=== PATIENT | female | born 1985 | race Two or more races ===

== ENCOUNTER 2023-08-27 16:02 | Inpatient (IN) | payer MEDICAID ==
[~2023-08-27] VITALS: Ht 157.5 cm; Wt 98.3 kg
[2023-08-27 17:23] LABS: Urine Bacteria NONE SEEN /hpf (None Seen); Urine Blood TRACE /uL (Negative); Urine Clarity HAZY (Clear); Urine Color Colorless (Yellow); Urine Protein, UAD 3+ (Negative); Urine Specific Gravity 1.031 (1.001-1.035); Urine Urobilinogen Normal (Negative); Urine WBC 2 /hpf (0 - 5)
[2023-08-27] MEDS ORDERED: InsuLIN REG 1unit/0.01ml Soln (100units/ml) IV ONE (18:15)
[2023-08-27] MEDS ORDERED: SODIUM CHLORIDE 0.9% 2,000 ML IV ONE (18:15)
[2023-08-27] MEDS ORDERED: CEPHALEXIN 250 MG CAP PO ONE (18:15)
[2023-08-27 18:47] LABS: Eosinophils # (auto) 0.2 10 ^3/uL (0-0.8); Hemoglobin 11.3 g/dL (12.2-16.2); Lymphocytes # (auto) 2.1 10 ^3/uL (0.4-5.4)
[2023-08-27 18:49] LABS: Basophils # (auto) 0.1 10 ^3/uL (0-0.2); Basophils % (auto) 0.5 % (0.0-2.0); Eosinophils % (auto) 1.3 % (0.0-7.0); Hematocrit 35.8 % (36.0-46.0); Lymphocytes % (auto) 14.1 % (10.0-50.0); Mean Corpuscular Hemoglobin 26.8 pg (28.0-32.0); Mean Corpuscular Hgb Conc. 31.7 g/dL (32.0-36.0); Mean Corpuscular Volume 84.7 fL (80.0-100.0); Monocytes # (auto) 0.9 10 ^3/uL (0-1.3); Monocytes % (auto) 5.9 % (0.0-12.0); Neutrophils # (auto) 11.5 10 ^3/uL (1.6-8.6); Neutrophils % (auto) 78.2 % (37.0-80.0); Red Blood Cells 4.23 10^6/uL (4.0-5.20); Red Cell Distribution Width 13.1 % (11.8-14.3); White Blood Cell 14.7 10^3/uL (4.4-10.8)
[2023-08-27 19:07] LABS: Alanine Aminotransferase 13 U/L (7-40); Albumin 3.6 g/dL (3.2-4.8); Alkaline Phosphatase 171 U/L (46-116); Anion Gap 7 (5-15); Aspartate Aminotransferase 10 U/L (13-40); BUN/Creatinine Ratio 16.6 (10.0-20.0); Blood Urea Nitrogen 26 mg/dL (9-23); Calcium 8.6 mg/dL (8.7-10.4); Carbon Dioxide 26 mmol/L (20-30); Chloride 97 mmol/L (98-107); Potassium 4.3 mmol/L (3.5-5.1); Sodium 130 mmol/L (136-145)
[2023-08-27 19:08] LABS: Bilirubin, Total 0.3 mg/dL (0.2-1.0); Total Protein 6.7 g/dL (5.7-8.2)
[2023-08-27 19:15] LABS: Glucose 587 mg/dL (74-106)
[2023-08-27] MEDS ORDERED: hydrALAZINE HCL 20 MG/ML VL IV ONE (21:30)
[2023-08-27] MEDS ORDERED: VANCOMYCIN PER PHARMACY 0 MG IV SCH (21:30)
[2023-08-27] MEDS ORDERED: VANCOMYCIN 1GM/200ML 200 ML IV SCH (22:00)
[2023-08-27] MEDS ORDERED: INSULIN LISPRO (HUMAN) 100 UNITS/ML ML SC STA (22:22)
[2023-08-27] MEDS ORDERED: MAALOX PLUS or MAALOX 30 ML PO PRN (22:30)
[2023-08-27] MEDS ORDERED: HYDROcodone-ACET 5/325MG TAB PO PRN (22:30)
[2023-08-27] MEDS ORDERED: DOCUSATE SOD 100 MG CAP PO PRN (22:30)
[2023-08-27] MEDS ORDERED: ONDANSETRON HCL 4 MG/2 ML VIAL IV PRN (22:30)
[2023-08-27] MEDS ORDERED: DEXTROSE (50%) 50ML SYRG IV PRN (22:30)
[2023-08-27] MEDS ORDERED: MORPHINE SULFATE INJ 2 MG/ml SYRG IV PRN (22:30)
[2023-08-27] MEDS ORDERED: ACETAMINOPHEN 325 MG TAB PO PRN (22:30)
[2023-08-27] MEDS ORDERED: LORazepam 0.5 MG TAB PO PRN (22:30)
[2023-08-27] MEDS ORDERED: TEMAZEPAM 15 MG CAP PO PRN (22:30)
[2023-08-28] VITALS (8 sets, daily range): BP systolic 127–138; BP diastolic 73–80; PULSE 78–100; RESP 14–20; TEMP 97.5–97.9; O2SAT 97–99
[2023-08-28] MEDS: ACCU-CHEK COMFORT CURVE STRIP VI SCH ×6 (00:03→21:21)
[2023-08-28] MEDS: SODIUM CHLORIDE 0.9% 1,000 ML IV SCH ×6 (00:04→23:30)
[2023-08-28] MEDS: InsuLIN REG 1unit/0.01ml Soln (100units/ml) SC SCH ×6 (04:17→21:27)
[2023-08-28 05:42] LABS: Basophils # (auto) 0 10 ^3/uL (0-0.2); Basophils % (auto) 0.4 % (0.0-2.0); Eosinophils # (auto) 0.2 10 ^3/uL (0-0.8); Eosinophils % (auto) 2.4 % (0.0-7.0); Hematocrit 30.7 % (36.0-46.0); Lymphocytes # (auto) 2.7 10 ^3/uL (0.4-5.4); Lymphocytes % (auto) 27.1 % (10.0-50.0); Mean Corpuscular Hemoglobin 27.4 pg (28.0-32.0); Mean Corpuscular Hgb Conc. 32.7 g/dL (32.0-36.0); Mean Corpuscular Volume 83.7 fL (80.0-100.0); Monocytes # (auto) 0.6 10 ^3/uL (0-1.3); Monocytes % (auto) 6.6 % (0.0-12.0); Neutrophils # (auto) 6.2 10 ^3/uL (1.6-8.6); Neutrophils % (auto) 63.5 % (37.0-80.0); Nucleated Red Blood Cells % 0.1 %; Potassium 4.1 mmol/L (3.5-5.1); Red Blood Cells 3.66 10^6/uL (4.0-5.20); Red Cell Distribution Width 13.4 % (11.8-14.3); Sodium 139 mmol/L (136-145); White Blood Cell 9.8 10^3/uL (4.4-10.8)
[2023-08-28 05:43] LABS: Anion Gap 7 (5-15); Calcium 7.8 mg/dL (8.5-10.1); Carbon Dioxide 23 mmol/L (20-30)
[2023-08-28 05:48] LABS: BUN/Creatinine Ratio 18.2 (10.0-20.0); Blood Urea Nitrogen 20 mg/dL (9-23); Glucose 254 mg/dL (74-106)
[2023-08-28] MEDS: PIPERACILLIN-TAZO 4.5GM 100 ML IV SCH ×3 (05:51→21:23)
[2023-08-28 05:53] LABS: Chloride 109 mmol/L (98-107)
[2023-08-28] MEDS ORDERED: VANCOMYCIN 750mg/150ml 250 ML IV SCH (13:00)
[2023-08-28] MEDS ORDERED: VANCOMYCIN 750mg/150ml 150 ML IV SCH (15:57)
[2023-08-28] MEDS ORDERED: VANCOMYCIN 750mg/150ml 150 ML IV ONE (16:15)
[2023-08-29] MEDS: ACCU-CHEK COMFORT CURVE STRIP VI SCH ×5 (00:20→16:00)
[2023-08-29] MEDS: InsuLIN REG 1unit/0.01ml Soln (100units/ml) SC SCH ×5 (00:22→16:00)
[2023-08-29] MEDS ORDERED: VANCOMYCIN 750mg/150ml 150 ML IV SCH (04:00)
[2023-08-29] MEDS: SODIUM CHLORIDE 0.9% 1,000 ML IV SCH ×3 (04:58→14:30)
[2023-08-29 05:00] VITALS: BP 157/83; PULSE 84; RESP 20; TEMP 98.2; O2SAT 97
[2023-08-29] MEDS ORDERED: VANCOMYCIN 750mg/150ml 250 ML IV SCH (06:00)
[2023-08-29 06:28] LABS: Basophils % (auto) 0.6 % (0.0-2.0); Eosinophils # (auto) 0.2 10 ^3/uL (0-0.8); Hematocrit 28.4 % (36.0-46.0); Monocytes # (auto) 0.5 10 ^3/uL (0-1.3); Neutrophils # (auto) 5.5 10 ^3/uL (1.6-8.6)
[2023-08-29 06:31] LABS: Basophils # (auto) 0 10 ^3/uL (0-0.2); Eosinophils % (auto) 2.2 % (0.0-7.0); Hemoglobin 9.2 g/dL (12.2-16.2); Lymphocytes % (auto) 24.1 % (10.0-50.0); Mean Corpuscular Hemoglobin 26.9 pg (28.0-32.0); Mean Corpuscular Hgb Conc. 32.3 g/dL (32.0-36.0); Mean Corpuscular Volume 83.2 fL (80.0-100.0); Monocytes % (auto) 5.9 % (0.0-12.0); Neutrophils % (auto) 67.2 % (37.0-80.0); Nucleated Red Blood Cells % 0.1 %; Red Blood Cells 3.41 10^6/uL (4.0-5.20); Red Cell Distribution Width 13.4 % (11.8-14.3); White Blood Cell 8.2 10^3/uL (4.4-10.8)
[2023-08-29 06:35] LABS: Chloride 109 mmol/L (98-107); Potassium 3.9 mmol/L (3.5-5.1); Sodium 137 mmol/L (136-145)
[2023-08-29 06:37] LABS: Anion Gap 4 (5-15); Calcium 7.9 mg/dL (8.7-10.4); Carbon Dioxide 24 mmol/L (20-30)
[2023-08-29 06:42] LABS: BUN/Creatinine Ratio 12.1 (10.0-20.0); Blood Urea Nitrogen 11 mg/dL (9-23); Glucose 109 mg/dL (74-106)
[2023-08-29 07:30] VITALS: PULSE 82; RESP 16; O2SAT 96
[2023-08-29 08:00] VITALS: PULSE 86
[2023-08-29 09:00] VITALS: BP 151/80; PULSE 80; RESP 18; TEMP 98.4; O2SAT 94
[2023-08-29] MEDS ORDERED: CLIN300C70 PO (10:56)
[2023-08-29 13:00] VITALS: BP 154/74; PULSE 84; RESP 18; TEMP 98.5; O2SAT 98
[2023-08-29] MEDS ORDERED: PIPERACILLIN-TAZO 4.5GM 100 ML IV SCH (14:00)
[2023-08-29 15:29] VITALS: BP 116/57; PULSE 84; RESP 17; TEMP 98.1; O2SAT 93
== END 2023-08-29 16:10 | disposition home or self-care (01) | DRG 380 ==
LOC: ER 16:02 → TELE 22:22 → TELE-WESTW 08-28 09:00
PROVIDERS: ADMIT Internal Medicine; ATTEND Internal Medicine
DX: E11.69 Type 2 diabetes mellitus with other specified complication (principal); L97.529 Non-pressure chronic ulcer of other part of left foot with unspecified severity; N17.0 Acute kidney failure with tubular necrosis; E11.621 Type 2 diabetes mellitus with foot ulcer; L03.116 Cellulitis of left lower limb; I10 Essential (primary) hypertension; Z68.39 Body mass index [BMI] 39.0-39.9, adult; E66.01 Morbid (severe) obesity due to excess calories; E11.65 Type 2 diabetes mellitus with hyperglycemia; S90.922A Unspecified superficial injury of left foot, initial encounter; X58.XXXA Exposure to other specified factors, initial encounter; Y93.89 Activity, other specified; Y92.89 Other specified places as the place of occurrence of the external cause; Y99.8 Other external cause status
CPT/HCPCS: 36415; 73620; 73718; 80048; 80053; 81001; 82962; 83036; 83605; 84702; 85025; 87040; 87086; 99291; G0378; J1815; J2543

== ENCOUNTER 2023-11-26 10:27 | Inpatient (IN) | payer MEDICAID ==
[~2023-11-26] VITALS: Ht 167.6 cm; Wt 70.4 kg
[~2023-11-26 10:27] MED LIST: AUG875T PO; BACDST PO; BLOO1KIT60 XX; DAKI0.12 EX; DOCU-94 PO; GAUZ4PAD82 XX; GAUZMIS XX; HYDR-4902 PO; LACTCAP35 OR; METF-370 PO
[2023-11-26 11:08] LABS: Basophils # (auto) 0 10 ^3/uL (0-0.2); Basophils % (auto) 0.3 % (0.0-2.0); Eosinophils # (auto) 0.2 10 ^3/uL (0-0.8); Eosinophils % (auto) 2.1 % (0.0-7.0); Hematocrit 35.9 % (36.0-46.0); Hemoglobin 11.5 g/dL (12.2-16.2); Lymphocytes # (auto) 1.8 10 ^3/uL (0.4-5.4); Lymphocytes % (auto) 15.3 % (10.0-50.0); Mean Corpuscular Hemoglobin 26.1 pg (28.0-32.0); Mean Corpuscular Hgb Conc. 31.9 g/dL (32.0-36.0); Mean Corpuscular Volume 81.7 fL (80.0-100.0); Monocytes # (auto) 0.6 10 ^3/uL (0-1.3); Monocytes % (auto) 5.2 % (0.0-12.0); Neutrophils # (auto) 8.9 10 ^3/uL (1.6-8.6); Neutrophils % (auto) 77.1 % (37.0-80.0); Red Cell Distribution Width 14.3 % (11.8-14.3); White Blood Cell 11.5 10^3/uL (4.4-10.8)
[2023-11-26 11:17] LABS: Chloride 99 mmol/L (98-107); Potassium 4.1 mmol/L (3.5-5.1); Sodium 132 mmol/L (136-145)
[2023-11-26 11:18] LABS: Anion Gap 7 (5-15); Calcium 9.4 mg/dL (8.5-10.1); Carbon Dioxide 26 mmol/L (20-30)
[2023-11-26 11:23] LABS: BUN/Creatinine Ratio 10.5 (10.0-20.0); Blood Urea Nitrogen 13 mg/dL (9-23); Glucose 387 mg/dL (74-106)
[2023-11-26] MEDS: InsuLIN REG 1unit/0.01ml Soln (100units/ml) IV ONE (14:00)
[2023-11-26] MEDS: PIPERACILLIN-TAZOB 3.375GM 100 ML IV ONE (15:28)
[2023-11-26] MEDS: SODIUM CHLORIDE 0.9% 1,000 ML IV ONE ×2 (15:28→18:30)
[2023-11-26] MEDS ORDERED: MORPHINE SULFATE INJ 2 MG/ml SYRG IV PRN ×2 (15:45)
[2023-11-26] MEDS ORDERED: NITROGLYCERIN 0.4 MG SL TAB SL PRN (15:45)
[2023-11-26] MEDS ORDERED: ONDANSETRON HCL 4 MG/2 ML VIAL IV PRN (15:45)
[2023-11-26] MEDS ORDERED: DEXTROSE (50%) 50ML SYRG IV PRN (15:45)
[2023-11-26] MEDS ORDERED: DOCUSATE SOD 100 MG CAP PO PRN (15:45)
[2023-11-26] MEDS: ACCU-CHEK COMFORT CURVE STRIP VI SCH (17:00)
[2023-11-26] MEDS: InsuLIN REG 1unit/0.01ml Soln (100units/ml) SC SCH (17:19)
[2023-11-27 03:56] LABS: Basophils # (auto) 0.1 10 ^3/uL (0-0.2); Basophils % (auto) 0.6 % (0.0-2.0); Eosinophils # (auto) 0.3 10 ^3/uL (0-0.8); Eosinophils % (auto) 3.4 % (0.0-7.0); Hematocrit 31.8 % (36.0-46.0); Hemoglobin 10.3 g/dL (12.2-16.2); Lymphocytes # (auto) 2.2 10 ^3/uL (0.4-5.4); Lymphocytes % (auto) 23.1 % (10.0-50.0); Mean Corpuscular Hemoglobin 26.6 pg (28.0-32.0); Mean Corpuscular Hgb Conc. 32.3 g/dL (32.0-36.0); Mean Corpuscular Volume 82.3 fL (80.0-100.0); Monocytes # (auto) 0.6 10 ^3/uL (0-1.3); Monocytes % (auto) 5.7 % (0.0-12.0); Neutrophils # (auto) 6.5 10 ^3/uL (1.6-8.6); Neutrophils % (auto) 67.2 % (37.0-80.0); Red Blood Cells 3.86 10^6/uL (4.0-5.20); Red Cell Distribution Width 14.6 % (11.8-14.3); White Blood Cell 9.7 10^3/uL (4.4-10.8)
[2023-11-27 04:11] LABS: Alkaline Phosphatase 106 U/L (46-116); Anion Gap 4 (5-15); BUN/Creatinine Ratio 14.8 (10.0-20.0); Blood Urea Nitrogen 16 mg/dL (9-23); Calcium 8.9 mg/dL (8.7-10.4); Carbon Dioxide 25 mmol/L (20-30); Chloride 106 mmol/L (98-107); Glucose 255 mg/dL (74-106); Potassium 4.5 mmol/L (3.5-5.1); Sodium 135 mmol/L (136-145)
[2023-11-27 04:12] LABS: Albumin 3.5 g/dL (3.2-4.8); Aspartate Aminotransferase 8 U/L (13-40); Bilirubin, Total 0.3 mg/dL (0.2-1.0); Total Protein 6.8 g/dL (5.7-8.2)
[2023-11-27 04:18] LABS: Alanine Aminotransferase < 9 U/L (7-40)
[2023-11-27] MEDS: InsuLIN REG 1unit/0.01ml Soln (100units/ml) SC SCH (05:32)
[2023-11-27 07:32] VITALS: PULSE 84; RESP 18; O2SAT 94
[2023-11-27] MEDS: cefTRIAXone 1GM/50ML D5W 50 ML IV SCH (09:00)
[2023-11-27] MEDS: PANTOPRAZOLE 40 MG TAB PO SCH (10:00)
[2023-11-27 10:50] LABS: Urine Bacteria None Seen /hpf (None Seen)
[2023-11-27] MEDS ORDERED: VANCOMYCIN PER PHARMACY 0 MG IV SCH (11:15)
[2023-11-27 11:20] LABS: Urine Blood TRACE /uL (Negative); Urine Clarity Turbid (Clear); Urine Color Colorless (Yellow); Urine Protein, UAD 2+ (Negative); Urine Specific Gravity 1.019 (1.001-1.035); Urine Urobilinogen Normal (Negative); Urine WBC 3 /hpf (0 - 5); Urine pH 5.5 (5.0-9.0)
[2023-11-27 11:22] LABS: Amphetamine Screen, Urine Neg (NEGATIVE); Barbiturate Scree,Urine Neg (NEGATIVE); Benzodiazephine Screen, Urine Neg (NEGATIVE); Cannabinoid Screen, Urine Neg (NEGATIVE); Cocaine Screen, Urine Neg (NEGATIVE); Opiate Scree,Urine Pos (NEGATIVE); Phencyclidine Screen, Urine Neg (NEGATIVE)
[2023-11-27] MEDS: VANCOMYCIN 1GM/200ML 200 ML IV ONE (12:30)
[2023-11-27 12:37] VITALS: BP 151/76; PULSE 74; RESP 19; TEMP 98.3; O2SAT 100
[2023-11-27 16:30] VITALS: BP 149/76; PULSE 76; RESP 18; TEMP 97.9; O2SAT 95
[2023-11-27] MEDS: SODIUM CHLORIDE 0.9% 1,000 ML IV SCH (18:04)
[2023-11-27] MEDS: LISINOPRIL 20 MG TAB PO SCH (18:04)
[2023-11-27 21:00] VITALS: BP 159/79; PULSE 76; RESP 18; TEMP 98.7; O2SAT 98
[2023-11-28] MEDS: VANCOMYCIN 1GM/200ML 200 ML IV SCH (00:27)
[2023-11-28 01:00] VITALS: BP 139/73; PULSE 78; RESP 18; TEMP 98.1; O2SAT 96
[2023-11-28 05:00] VITALS: BP 137/75; PULSE 79; RESP 18; TEMP 98; O2SAT 96
[2023-11-28 07:00] LABS: Basophils # (auto) 0 10 ^3/uL (0-0.2); Eosinophils # (auto) 0.3 10 ^3/uL (0-0.8); Hemoglobin 10.6 g/dL (12.2-16.2); Mean Corpuscular Hemoglobin 26.2 pg (28.0-32.0); Monocytes # (auto) 0.5 10 ^3/uL (0-1.3)
[2023-11-28 07:03] LABS: Basophils % (auto) 0.5 % (0.0-2.0); Eosinophils % (auto) 3.9 % (0.0-7.0); Lymphocytes # (auto) 2.8 10 ^3/uL (0.4-5.4); Mean Corpuscular Hgb Conc. 32.1 g/dL (32.0-36.0); Mean Corpuscular Volume 81.5 fL (80.0-100.0); Monocytes % (auto) 7.5 % (0.0-12.0); Neutrophils # (auto) 3.2 10 ^3/uL (1.6-8.6); Neutrophils % (auto) 47.1 % (37.0-80.0); Nucleated Red Blood Cells % 0.1 %; Red Blood Cells 4.05 10^6/uL (4.0-5.20); Red Cell Distribution Width 14.1 % (11.8-14.3); White Blood Cell 6.7 10^3/uL (4.4-10.8)
[2023-11-28 07:04] LABS: Albumin 3.5 g/dL (3.2-4.8); Alkaline Phosphatase 101 U/L (46-116); Anion Gap 7 (5-15); Aspartate Aminotransferase 16 U/L (13-40); BUN/Creatinine Ratio 12.4 (10.0-20.0); Blood Urea Nitrogen 13 mg/dL (9-23); Calcium 8.9 mg/dL (8.5-10.1); Carbon Dioxide 23 mmol/L (20-30); Chloride 105 mmol/L (98-107); Glucose 176 mg/dL (74-106); Potassium 4.7 mmol/L (3.5-5.1); Sodium 135 mmol/L (136-145)
[2023-11-28 07:05] LABS: Bilirubin, Total 0.3 mg/dL (0.2-1.0); Total Protein 6.6 g/dL (5.7-8.2)
[2023-11-28 07:11] LABS: Alanine Aminotransferase < 9 U/L (7-40)
[2023-11-28 07:22] LABS: INR 1.01 (0.9-1.15); Prothrombin Time 10.6 sec (9.3-11.8)
[2023-11-28 08:15] VITALS: PULSE 74; RESP 16
[2023-11-28] MEDS: cefTRIAXone 1GM/50ML D5W 50 ML IV SCH (08:53)
[2023-11-28 11:07] VITALS: BP 144/74; PULSE 74; RESP 16; TEMP 98.4; O2SAT 96
[2023-11-28 17:18] VITALS: BP 140/62; PULSE 71; RESP 17; TEMP 98.4; O2SAT 100
[2023-11-28 21:00] VITALS: BP 158/78; PULSE 74; RESP 18; TEMP 98.3; O2SAT 99
[2023-11-28] MEDS: hydrALAZINE HCL 20 MG/ML VL IV PRN (21:57)
[2023-11-29] VITALS (9 sets, daily range): BP systolic 112–162; BP diastolic 69–85; PULSE 78–92; RESP 16–18; TEMP 97.8–98.3; O2SAT 96–100
[2023-11-29 06:42] LABS: Basophils # (auto) 0 10 ^3/uL (0-0.2); Basophils % (auto) 0.6 % (0.0-2.0); Eosinophils # (auto) 0.2 10 ^3/uL (0-0.8); Eosinophils % (auto) 3.3 % (0.0-7.0); Hematocrit 33.4 % (36.0-46.0); Hemoglobin 10.8 g/dL (12.2-16.2); Lymphocytes # (auto) 2.9 10 ^3/uL (0.4-5.4); Lymphocytes % (auto) 38.9 % (10.0-50.0); Mean Corpuscular Hemoglobin 26.4 pg (28.0-32.0); Mean Corpuscular Hgb Conc. 32.2 g/dL (32.0-36.0); Mean Corpuscular Volume 81.9 fL (80.0-100.0); Monocytes # (auto) 0.5 10 ^3/uL (0-1.3); Monocytes % (auto) 7.2 % (0.0-12.0); Neutrophils # (auto) 3.7 10 ^3/uL (1.6-8.6); Red Blood Cells 4.08 10^6/uL (4.0-5.20); White Blood Cell 7.5 10^3/uL (4.4-10.8)
[2023-11-29 07:02] LABS: Albumin 3.4 g/dL (3.2-4.8); Alkaline Phosphatase 101 U/L (46-116); Anion Gap 7 (5-15); Aspartate Aminotransferase 13 U/L (13-40); BUN/Creatinine Ratio 17.4 (10.0-20.0); Blood Urea Nitrogen 19 mg/dL (9-23); Calcium 9.3 mg/dL (8.5-10.1); Carbon Dioxide 24 mmol/L (20-30); Chloride 102 mmol/L (98-107); Glucose 226 mg/dL (74-106); Potassium 4.4 mmol/L (3.5-5.1); Sodium 133 mmol/L (136-145)
[2023-11-29 07:03] LABS: Bilirubin, Total 0.2 mg/dL (0.2-1.0); Total Protein 6.6 g/dL (5.7-8.2)
[2023-11-29 07:21] LABS: Alanine Aminotransferase < 9 U/L (7-40)
[2023-11-29] MEDS: ACETAMINOPHEN 325 MG TAB PO PRN (07:36)
[2023-11-29] MEDS ORDERED: VANCOMYCIN 750mg/150ml 150 ML IV SCH (13:00)
[2023-11-29] MEDS ORDERED: KETAMINE 50mg/ML 1ml syringe ONE (13:13)
[2023-11-29] MEDS ORDERED: fentaNYL CITRATE 100 MCG/2 ML VL ONE (13:13)
[2023-11-29] MEDS ORDERED: MIDAZOLAM HCL 2MG/2ML 2ml VIAL (1mg/ml) ONE (13:13)
[2023-11-29] MEDS ORDERED: ONDANSETRON HCL 4 MG/2 ML VIAL IV ONE (13:15)
[2023-11-29] MEDS ORDERED: HYDROmorphone HCL 2 MG/ML VL/or syr IV PRN ×2 (13:15)
[2023-11-29] MEDS ORDERED: ONDANSETRON HCL 4 MG/2 ML VIAL ONE (13:42)
[2023-11-29] MEDS ORDERED: LIDOCAINE 2% (LOCAL ANESTH.) PF 5ml SDV ONE (13:42)
[2023-11-29] MEDS ORDERED: PROPOFOL 10 MG/ML 20 ML IV ONE ×2 (13:42→14:13)
[2023-11-29] MEDS: VANCOMYCIN 750mg/150ml 150 ML IV SCH (17:28)
[2023-11-29] MEDS: HYDROcodone-ACET 5/325MG TAB PO PRN (20:17)
[2023-11-30 05:00] VITALS: BP 136/76; PULSE 85; RESP 18; TEMP 98.1; O2SAT 96
[2023-11-30 06:57] LABS: Basophils # (auto) 0 10 ^3/uL (0-0.2); Basophils % (auto) 0.5 % (0.0-2.0); Eosinophils # (auto) 0.2 10 ^3/uL (0-0.8); Eosinophils % (auto) 2.8 % (0.0-7.0); Hematocrit 35.1 % (36.0-46.0); Hemoglobin 11.3 g/dL (12.2-16.2); Lymphocytes # (auto) 2.6 10 ^3/uL (0.4-5.4); Lymphocytes % (auto) 37.2 % (10.0-50.0); Mean Corpuscular Hemoglobin 26.4 pg (28.0-32.0); Mean Corpuscular Hgb Conc. 32.3 g/dL (32.0-36.0); Mean Corpuscular Volume 81.7 fL (80.0-100.0); Monocytes # (auto) 0.5 10 ^3/uL (0-1.3); Monocytes % (auto) 7.3 % (0.0-12.0); Neutrophils # (auto) 3.7 10 ^3/uL (1.6-8.6); Neutrophils % (auto) 52.2 % (37.0-80.0); Nucleated Red Blood Cells % 0.1 %; Red Blood Cells 4.29 10^6/uL (4.0-5.20); Red Cell Distribution Width 13.9 % (11.8-14.3); White Blood Cell 7.1 10^3/uL (4.4-10.8)
[2023-11-30 07:18] LABS: Albumin 3.4 g/dL (3.2-4.8); Alkaline Phosphatase 102 U/L (46-116); Anion Gap 6 (5-15); BUN/Creatinine Ratio 12.4 (10.0-20.0); Blood Urea Nitrogen 14 mg/dL (9-23); Calcium 9.5 mg/dL (8.7-10.4); Carbon Dioxide 24 mmol/L (20-30); Chloride 104 mmol/L (98-107); Glucose 162 mg/dL (74-106); Potassium 4.4 mmol/L (3.5-5.1); Sodium 134 mmol/L (136-145)
[2023-11-30 07:19] LABS: Aspartate Aminotransferase 10 U/L (13-40); Bilirubin, Total 0.3 mg/dL (0.2-1.0); Total Protein 6.6 g/dL (5.7-8.2)
[2023-11-30 07:35] LABS: Alanine Aminotransferase < 9 U/L (7-40)
[2023-11-30 08:45] VITALS: BP 117/69; PULSE 75; RESP 18; TEMP 98.1; O2SAT 98
[2023-11-30] MEDS ORDERED: CLIN1CAP70 PO (08:50)
[2023-11-30] MEDS ORDERED: CLOT1CRE56 TOP (08:50)
[2023-11-30] MEDS ORDERED: LISI20TA56 PO (09:02)
[2023-11-30 09:20] LABS: Hepatitis B Surface Antigen Negative (Negative)
[2023-11-30 09:38] LABS: Hepatitis C Antibody Negative (Negative)
[2023-11-30] MEDS: ceFAZolin 1GM/50ML 50 ML IV ONE (12:26)
[2023-11-30 12:50] VITALS: BP 148/81; PULSE 74; RESP 18; TEMP 97.6; O2SAT 99
[2023-11-30 16:35] VITALS: BP 127/77; PULSE 76; RESP 18; TEMP 99; O2SAT 97
[2023-11-30] MEDS: DAKINS QUARTER STR 0.125% (NaHypochlorite) 473 ML TOPICAL SOL TOP SCH (19:06)
[2023-11-30 22:07] VITALS: BP 157/85; PULSE 84; RESP 18; TEMP 97.6; O2SAT 97
[2023-12-01 01:47] VITALS: BP 111/66; PULSE 96; RESP 18; TEMP 98; O2SAT 98
[2023-12-01 05:54] VITALS: BP 112/69; PULSE 82; RESP 18; TEMP 98; O2SAT 97
[2023-12-01 09:00] VITALS: BP 116/64; PULSE 86; RESP 18; TEMP 98.4; O2SAT 96
[2023-12-01] MEDS: VANCOMYCIN 750mg/150ml 150 ML IV SCH (09:20)
[2023-12-01 13:00] VITALS: BP 122/66; PULSE 78; RESP 18; TEMP 98.1; O2SAT 95
== END 2023-12-01 15:23 | disposition home health service (06) | DRG 364 ==
LOC: ER 10:27 → OVERFLOW 15:49 → WEST WING 11-27 10:50
PROVIDERS: ADMIT Internal Medicine; ATTEND Internal Medicine
PROC: 0J9R0ZZ Drainage of Left Foot Subcutaneous Tissue and Fascia, Open Approach (ICD-10-PCS; principal; 2023-11-29 13:09)
DX: L03.116 Cellulitis of left lower limb (principal); N17.0 Acute kidney failure with tubular necrosis; L02.612 Cutaneous abscess of left foot; E11.65 Type 2 diabetes mellitus with hyperglycemia; N39.0 Urinary tract infection, site not specified; I10 Essential (primary) hypertension; I16.0 Hypertensive urgency; Z82.49 Family history of ischemic heart disease and other diseases of the circulatory system; Z83.3 Family history of diabetes mellitus
CPT/HCPCS: 36415; 70450; 73718; 80048; 80053; 80202; 80307; 81001; 82962; 83605; 84702; 85025; 85610; 85730; 86803; 86850; 86900; 86901; 87040; 87070; 87075; 87086; 87205; 87340; 93005; G0378; J1815; J2001; J2250; J2405; J2543; J2704

== ENCOUNTER 2024-06-16 14:23 | Emergency (ER) | payer MEDICAID ==
[~2024-06-16] VITALS: Ht 157.5 cm; Wt 76.0 kg
[~2024-06-16 14:23] MED LIST changes: +CLIN1CAP70 PO; +CLOT1CRE56 TOP; +LISI20TA56 PO
[2024-06-16 14:45] VITALS: BP 165/99; PULSE 84; RESP 16; O2SAT 98
[2024-06-16] MEDS: cefTRIAXone SOD 1,000 MG VL IM ONE (14:49)
--- NOTE | 2024-06-16 15:16 | DVH ---
CLINICAL INDICATION: stepped on glass. Foreign body TECHNIQUE: 3 radiographic views of the right foot were obtained. Comparison: None FINDINGS/IMPRESSION: There is no evidence of acute fracture or dislocation. The visualized joint space is well maintained. The alignment is anatomical. Multiple small densities within the plantar soft tissue at the level of the first toe distal phalanx base with associated skin defect which may represent a wound. Correlate for foreign bodies.
[2024-06-16] MEDS ORDERED: CEPH500C PO (16:15)
[2024-06-16] MEDS ORDERED: IBUP-1455 PO (16:16)
--- NOTE | 2024-06-16 16:16 | ED.PDOC ---
HPI Comments 38 year old with a hx of DM presents for wound check after she stepped on broken glass this afternoon. Concerned about possible foreign body as she has a history of diabetes. Able to ambulate without assistive devices No other complaints or concerns Denies numbness tingling to the affected leg Chief Complaint: Laceration Time Seen by MD: 14:26 Primary Care Provider: SAEED LOJA Reviewed Notes: Nurses Notes, Medications, Allergies Allergies: Coded Allergies: NO KNOWN ALLERGIES (Unverified , 08/27/23) Home Meds Active Scripts Ibuprofen Micronized (Ibuprofen) 800 Mg Tab, 800 MG PO TID for 10 Days, #30 TAB 0 Refills Prov:TOMASZ SAXENA DIVERSITY SPECIALIST 06/16/24 Cephalexin Monohydrate (Cephalexin) 500 Mg Cap, 1 CAP PO QID for 10 Days, #40 CAP 0 Refills Prov:TOMASZ SAXENA DIVERSITY SPECIALIST 06/16/24 Lisinopril (Lisinopril) 20 Mg Tab, 10 MG PO DAILY for 10 Days, #5 TAB Prov:CR GILMORE RESIDENT 11/30/23 Clotrimazole (Lotrimin) 1 Applic Ap, 1 APPLIC TOP BID for 20 Days, APPLIC Prov:CR GILMORE RESIDENT 11/30/23 Clindamycin Hcl (Clindamycin Hcl) 300 Mg Cap, 300 MG PO TID for 10 Days, CAP Prov:CR GILMORE RESIDENT 11/30/23 Lactobacillus (PROBIOTIC) Cap, 1 TAB OR DAILY for 30 Days, #30 CAP Prov:DEVANG RONDON DIVERSITY SPECIALIST 11/03/23 Docusate Sodium (Colace) 100 Mg Cap, 1 CAP PO BID, #30 CAP Prov:DEVANG RONDON DIVERSITY SPECIALIST 11/03/23 Hydrocodone-Acetaminophen (Hydrocodone Bitartrate/AC 5-325 mg) 1 Tab Tab, 1 TAB PO Q6HP PRN for 5 Days, #20 TAB Prov:DEVANG RONDON DIVERSITY SPECIALIST 11/03/23 Amoxicillin & Pot Clavulanate (AUGMENTIN TABLET) 875 Mg Tb, 875 MG PO BID for 7 Days, #14 TAB Prov:SALDEVANG SMITH DIVERSITY SPECIALIST 11/03/23 Sulfamethoxazole W/Trimethopri (Bactrim Ds Tablet) 1 Tab Tb, 1 TAB PO BID for 7 Days, #14 TAB Prov:DEVANG RONDON DIVERSITY SPECIALIST 11/03/23 Gauze Pads & Dressings (Kerlix Gauze Roll) Roll Mis, UNIT XX DAILY, #7 Prov:DEVANG RONDON DIVERSITY SPECIALIST 11/03/23 Gauze Pads & Dressings (Curity Gauze Sponge 4"X4") 4 " Pad, " XX DAILY, #7 Prov:DEVANG RONDON DIVERSITY SPECIALIST 24 Sodium Hypochlorite (Dakins Solution Quarter S) 0.125 % Mary, 0.125 % EX DAILY for 14 Days, #240 ML Prov:DEVANG RONDON DIVERSITY SPECIALIST 11/03/23 Metformin Hydrochloride (Metformin Hcl) 500 Mg Tab, 1 TAB PO BID for 60 Days, #120 TAB 3 Refills Prov:DEVANG RONDON NP 11/02/23 Blood Glucose Monitoring Suppl (D-Care Glucometer Kit/Glu W/Device) 1 Kit Kit, KIT XX BID, #1 Prov:DEVANG RONDON DIVERSITY SPECIALIST 11/02/23 Mode of Arrival: Ambulatory Complexity: Simple Laceration Length (cm): 1 Skin Type: Jagged, Irregular Depth of Injury: Skin Tendon Injury: 0% Capillary Refill: < 3 seconds Tender: Mild Discharge: None Erythema: None Past Medical History PAST MEDICAL HISTORY: DM Surgical History: Denies all surgeries LINUX DEVOPS ENGINEER History: Denies all LINUX DEVOPS ENGINEER Hx Family History Family History: Family hx of DM, Family hx of Cancer Social History Smoker: Non-Smoker Alcohol: Denies ETOH Use Drugs: Denies Drug Use Lives In: Home All Other Systems: Reviewed and Negative (Per HPI) Physical Exam General Appearance: No Apparent Distress, Normal HEENT: Normal ENT Inspection, Pharynx Normal, TMs Normal Neck: Full Range of Motion, Non-Tender, Normal, Normal Inspection Respiratory: Chest Non-Tender, Lungs Clear, No Accessory Muscle Use, No Respiratory Distress, Normal Breath Sounds Cardiovascular: No Edema, No JVD, No Murmur, No Gallop, Normal Peripheral Pulses, Regular Rate/Rhythm Breast Exam: Deferred Gastrointestinal: No Organomegaly, Non Tender, No Pulsatile Mass, Normal Bowel Sounds, Soft Genitalia: Deferred Pelvic: Deferred Rectal: Deferred Extremities: No calf tenderness, Normal capillary refill, Normal inspection, Normal range of motion, Non-tender, No pedal edema Musculoskeletal : Apperance: Normal Neurologic: Alert, preschool teacher assistant II-XII nml as Tested, No Motor Deficits, Normal Affect, Normal Mood, No Sensory Deficits Cerebellar Function: Normal Reflexes: Normal Skin: Dry, Normal Color, Warm Lymphatic: No Adenopathy Was a procedure done? Was a procedure done?: No Images 1 - jagged edges, bleeding controlled, no visible fb Differential diagnosis Generic Laceration: Retained Foriegn Body, Tendon Injury, Abrasion/Contusion, Laceration, Avulsion X-Ray, Labs, Meds, VS Vital Signs Date Time Temp Pulse Resp B/P (MAP) Pulse Ox O2 Delivery O2 Flow Rate FiO2 06/16/24 14:45 84 16 165/99 (121) 98 06/16/24 14:45 84 16 98 Room Air 06/16/24 14:35 98.1 84 16 165/99 (121) 98 Current Medications Medications (Trade) Dose Ordered Sig/Anil Route Start Time Stop Time Status Last Admin Ceftriaxone Sodium (Rocephin) 1,000 mg ONCE ONCE IM 06/16/24 14:45 06/16/24 14:46 DC 06/16/24 14:49 PATIENT: MANDI ROBLES YACCT: [id number]: [id number] : 1985 LOC: ER ROOM / BED: / AGE / SEX: 38 / F ADM STATUS: REG ER SERVICE 1435 ORDERING PHYSICIAN: TOMASZ SAXENA NP PROCEDURE(s): RFOOT - R FOOT 3 VIEW XRAY REASON: stepped on glass. Foreign body ORDER NUMBER(s): [id number], ACCESSION NUMBER(s): [id number] CLINICAL INDICATION: stepped on glass. Foreign body TECHNIQUE: 3 radiographic views of the right foot were obtained. Comparison: None FINDINGS/IMPRESSION: There is no evidence of acute fracture or dislocation. The visualized joint space is well maintained. The alignment is anatomical. Multiple small densities within the plantar soft tissue at the level of the first toe distal phalanx base with associated skin defect which may represent a wound. Correlate for foreign bodies. ATED BY: PINKY SNYDER DO DICTATED DATE/TIME: 06/16/241513 SIGNED BY: LILLIAN PINKYPAWAN Pace DO SIGNED DATE/TIME: 06/16/241513 CC: X-Ray, Labs, Meds, VS Comment Wound care provided. Dermabond applied. johnny wrapped. Patient is stable for discharge at this time. External notes reviewed. Test results and diagnostic imaging interpreted. All diagnostic findings, discharge care, education and instructions provided Follow-up with PCP in 2 to 3 days Patient verbalized understanding and agreed to treatment plan Vital signs stable, afebrile, no acute distress noted Patient ambulatory with strong steady gait Advised to return precautions for any new or worsening symptoms, return to ER immediately for re-evaluation Patient is aware that the purpose of this visit was for an acute medical emergency requiring emergent stabilization. Chronic conditions, including malignancies have not been ruled out. Patient is instructed to follow up with PCP as directed and discharge instructions for continued care and workup. If unable to arrange follow-up, patient is to return to the emergency department for reassessment. Patient (parent or legal guardian if applicable) was given verbal and written discharge instructions and acknowledges understanding. Time of 1ST Reevaluation: 16:10 Reevaluation 1ST: Improved Patient Education/Counseling: Diagnosis, Treatment Family Education/Counseling: Diagnosis, Treatment Departure 1 Departure Time of Disposition: 16:12 Impression: Primary Impression: Visit for wound check Disposition: HOME / SELF CARE / HOMELESS Condition: Stable e-Prescriptions Ibuprofen Micronized (Ibuprofen) 800 Mg Tab 800 MG PO TID for 10 Days, #30 TAB 0 Refills Prov: TOMASZ SAXENA NP 06/16/24 Cephalexin Monohydrate (Cephalexin) 500 Mg Cap 1 CAP PO QID for 10 Days, #40 CAP 0 Refills Prov: TOMASZ SAXENA NP 06/16/24 Discharged With: Self Critical Care Note Critical Care Time?: No Stability Stability form required: No Heart Score Heart Score: Heart Score Response (Comments) Value History N/A 0 EKG N/A 0 Age N/A 0 Risk Factors N/A 0 Troponin N/A 0 Total 0 TOMASZ SAXENA NP Jun 16, 2024 16:16
== END 2024-06-16 16:16 | disposition home or self-care (01) ==
LOC: ER 14:23
DX: S91.111A Laceration without foreign body of right great toe without damage to nail, initial encounter (principal); E11.9 Type 2 diabetes mellitus without complications; Z79.899 Other long term (current) drug therapy; Z79.84 Long term (current) use of oral hypoglycemic drugs; Z79.1 Long term (current) use of non-steroidal anti-inflammatories (NSAID); W25.XXXA Contact with sharp glass, initial encounter; Y93.89 Activity, other specified; Y92.89 Other specified places as the place of occurrence of the external cause; Y99.8 Other external cause status
CPT/HCPCS: 12001; 73630; 96372; 99283; J0696

== ENCOUNTER 2025-06-10 23:58 | Inpatient (IN) | payer MEDICAID ==
[~2025-06-10] VITALS: Ht 162.6 cm; Wt 76.8 kg
[~2025-06-10 23:58] MED LIST changes: +CEPH500C PO; +IBUP-1455 PO
[2025-06-11] VITALS (11 sets, daily range): BP systolic 136–181; BP diastolic 77–95; PULSE 80–104; RESP 17–24; TEMP 97.5–98.1; O2SAT 95–100
[2025-06-11] MEDS: ALBUTEROL SULF 2.5 MG/0.5ML(0.5%) NEB SOLN NEB ONE (00:27)
[2025-06-11] MEDS: IPRATROPIUM BROM 0.5 MG/2.5ML INH SOL NEB ONE (00:27)
[2025-06-11 00:36] LABS: Hematocrit 34.8 % (36.0-46.0); Hemoglobin 11.3 g/dL (12.2-16.2); Mean Corpuscular Hemoglobin 27.1 pg (28.0-32.0); Mean Corpuscular Volume 83.6 fL (80.0-100.0); Nucleated Red Blood Cells % 0.0 %
--- NOTE | 2025-06-11 00:50 | DVH ---
CHEST RADIOGRAPH Indication: SOB Technique: Single frontal view of the chest was obtained COMPARISON: None FINDINGS: Lines and Tubes: None Lungs: Moderate diffuse increased prominence of the pulmonary vasculature and mild patchy right basil ar pulmonary airspace disease. Pleura: No effusion. No pneumothorax. Cardiomediastinal contours: Unremarkable Bones: Unremarkable IMPRESSION: 1. Moderate diffuse increased prominence of the pulmonary vasculature and mild patchy right basilar p ulmonary airspace disease.
[2025-06-11] MEDS: methylPREDNISolone SOD SUCC 125 MG/2 ML VL IM ONE (00:57)
[2025-06-11 01:01] LABS: Alanine Aminotransferase 14 U/L (7-40); Albumin 3.6 g/dL (3.2-4.8); Anion Gap 5 (5-15); BUN/Creatinine Ratio 10.9 (10.0-20.0); Carbon Dioxide 24 mmol/L (20-31); Chloride 102 mmol/L (98-107); Potassium 4.3 mmol/L (3.5-5.1); Total Protein 6.9 g/dL (5.7-8.2)
[2025-06-11 01:06] LABS: Alkaline Phosphatase 162 U/L (46-116); Bilirubin, Total 0.3 mg/dL (0.2-1.0); Blood Urea Nitrogen 26 mg/dL (9-23); Calcium 8.6 mg/dL (8.7-10.4); Sodium 131 mmol/L (136-145)
[2025-06-11 01:08] LABS: Glucose 482 mg/dL (74-106)
[2025-06-11] MEDS: SODIUM CHLORIDE 0.9% 1,000 ML IV ONE (01:29)
[2025-06-11] MEDS: InsuLIN REG 1unit/0.01ml Soln (100units/ml) IV ONE ×3 (01:42→15:52)
[2025-06-11 02:46] LABS: Urine Protein, UAD 2+ (Negative)
--- NOTE | 2025-06-11 03:10 | ED.PDOC ---
SOB-HPI HPI Comments 39-year-old female presents to emergency department with shortness of breath. Patient states she has been dealing with a cough x1 month. She was seen at the urgent care last week and started on cough medications and antibiotic for an ear infection. Patient states over the last three days she has felt no significant improvement in his continuing to have shortness of breath and wheezing. Patient reports a history of high blood pressure and diabetes. States her blood sugars have been in the 200s over the last 3-4 days. States nothing makes it better, nothing makes it worse. Chief Complaint: Shortness of Breath Time Seen by MD: 00:07 Primary Care Provider: SAEED LOJA Reviewed notes: Nurses Notes Information Source: Patient Mode of Arrival: Ambulatory Severity: Moderate Past Medical History PAST MEDICAL HISTORY: DM, HTN Surgical History: Denies all surgeries ARTS MANAGER History: Denies all ARTS MANAGER Hx Family History Family History: Family hx of DM, Family hx of Cancer Social History Smoker: Non-Smoker Alcohol: Denies ETOH Use Drugs: Denies Drug Use Lives In: Home Constitutional: denies: chills, diaphoresis, fatigue, fever, malaise, sweats, weakness, others EENTM: denies: blurred vision, double vision, ear bleeding, ear discharge, ear drainage, ear pain, ear ringing, eye pain, eye redness, hearing loss, mouth pain, mouth swelling, nasal discharge, nose bleeding, nose congestion, nose pain, photophobia, tearing, throat pain, throat swelling, voice changes, others Respiratory: reports: SOB at rest, wheezing; denies: cough, hemoptysis, orthopnea, shortness of breath, SOB with excertion, stridor, others Cardiovascular: denies: chest pain, dizzy spells, diaphoresis, Dyspnea on exertion, edema, irregular heart beat, left arm pain, lightheadedness, palpitations, PND, syncope, others Gastrointestinal: denies: abdomen distended, abdominal pain, blood streaked bowels, constipated, diarrhea, dysphagia, difficulty swallowing, hematemesis, melena, nausea, poor appetite, poor fluid intake, rectal bleeding, rectal pain, vomiting, others Genitourinary: denies: abnormal vagina bleeding, burning, dyspareunia, dysuria, flank pain, frequency, hematuria, incontinence, pain, , vagina discharge, urgency, others Neurological: reports: headache; denies: dizziness, fainting, left sided numbness, left sided weakness, numbness, paresthesia, pre-existing deficit, right sided numbness, right sided weakness, seizure, speech problems, tingling, tremors, weakness, others Musculoskeletal: denies: back pain, gout, joint pain, joint swelling, muscle pain, muscle stiffness, neck pain, others Integumetry: denies: bruises, change in color, change in hair/nails, dryness, laceration, lesions, lumps, rash, wounds, others Physical Exam General Appearance: Moderate Distress, Normal HEENT: Normal ENT Inspection, Pharynx Normal, TMs Normal Neck: Full Range of Motion, Non-Tender, Normal, Normal Inspection Respiratory: Chest Non-Tender, Inspiration (Shallow inspirations), No Accessory Muscle Use, Respiratory Distress, Wheezing (Bilateral lung lobo) Cardiovascular: No Edema, No JVD, No Murmur, No Gallop, Normal Peripheral Pulses, Regular Rate/Rhythm Breast Exam: Deferred Gastrointestinal: No Organomegaly, Non Tender, No Pulsatile Mass, Normal Bowel Sounds, Soft Genitalia: Deferred Pelvic: Deferred Rectal: Deferred Extremities: No calf tenderness, Normal capillary refill, Normal inspection, Normal range of motion, Non-tender, No pedal edema Musculoskeletal : Apperance: Normal Neurologic: Alert, website admin II-XII nml as Tested, No Motor Deficits, Normal Affect, Normal Mood, No Sensory Deficits Cerebellar Function: Normal Reflexes: Normal Skin: Dry, Normal Color, Warm Lymphatic: No Adenopathy Was a procedure done? Was a procedure done?: No Differential Dx Differential Diagnosis: Anxiety, Asthma, COPD, Hypertension, Hyperventilation, Pneumonia, Pulmonary Embolism, Respiratory Distress, Sinusitis, Otitis Media X-Ray, Labs, Meds, VS Vital Signs Date Time Temp Pulse Resp B/P (MAP) Pulse Ox O2 Delivery O2 Flow Rate FiO2 06/11/25 01:43 178/107 06/11/25 01:05 104 24 95 Nasal Cannula* 2 28 06/11/25 01:03 98.9 104 24 181/95 (123) 95 98.9 06/11/25 00:27 20 99 Non-Rebreather 12 N/A 06/11/25 00:00 114 24 190/109 91 Lab Test 06/11/25 02:18 06/11/25 01:35 06/11/25 00:23 06/11/25 00:14 Range/Units Urine Color Colorless Yellow Urine Clarity Clear Clear Urine pH 6.5 5.0-9.0 Urine Specific [place] 1.016 1.001-1.035 Urine Protein 2+ H Negative Urine Ketones Negative Negative Urine Blood 1+ H Negative /uL Urine Nitrite Negative Negative Urine Bilirubin Negative Negative Urine Urobilinogen Normal Negative mg/dL Urine Leukocyte Esterase Negative Negative /uL Urine RBC 4 0 - 4 /hpf Urine Microscopic WBC 2 0-5 /HPF Urine Squamous Epithelial Cells Few <5 /hpf Urine Bacteria None seen None Seen /hpf Urine Glucose 4+ H Normal mg/dL POC Glucose 432 *H 439 *H 70-106 mg/dl White Blood Count 10.4 4.4-10.8 10^3/uL Red Blood Count 4.16 4.0-5.20 10^6/uL Hemoglobin 11.3 L 12.2-16.2 g/dL Hematocrit 34.8 L 36.0-46.0 % Mean Corpuscular Volume 83.6 80.0-100.0 fL Mean Corpuscular Hemoglobin 27.1 L 28.0-32.0 pg Mean Corpuscular Hemoglobin Concent 32.4 32.0-36.0 g/dL Red Cell Distribution Width 13.3 11.8-14.3 % Platelet Count 265 140-450 10^3/uL Mean Platelet Volume 10.9 H 6.9-10.8 fL Neutrophils (%) (Auto) 65.6 37.0-80.0 % Lymphocytes (%) (Auto) 25.8 10.0-50.0 % Monocytes (%) (Auto) 6.0 0.0-12.0 % Eosinophils (%) (Auto) 2.2 0.0-7.0 % Basophils (%) (Auto) 0.4 0.0-2.0 % Neutrophils # (Auto) 6.9 1.6-8.6 10 ^3/uL Lymphocytes # (Auto) 2.7 0.4-5.4 10 ^3/uL Monocytes # (Auto) 0.6 0-1.3 10 ^3/uL Eosinophils # (Auto) 0.2 0-0.8 10 ^3/uL Basophils # (Auto) 0 0-0.2 10 ^3/uL Nucleated Red Blood Cells 0.0 % Sodium Level 131 L 136-145 mmol/L Potassium Level 4.3 3.5-5.1 mmol/L Chloride Level 102 98-107 mmol/L Carbon Dioxide Level 24 20-31 mmol/L Anion Gap 5 5-15 Blood Urea Nitrogen 26 H 9-23 mg/dL Creatinine 2.39 H 0.550-1.02 mg/dL Glomerular Filtration Rate Calc 26 >90 mL/min BUN/Creatinine Ratio 10.9 10.0-20.0 Serum Glucose 482 *H 74-106 mg/dL Lactic Acid Level 0.9 0.4-2.0 mmol/L Calcium Level 8.6 L 8.7-10.4 mg/dL Total Bilirubin 0.3 0.2-1.0 mg/dL Aspartate Amino Transferase (AST) 17 13-40 U/L Alanine Aminotransferase (ALT) 14 7-40 U/L Alkaline Phosphatase 162 H 46-116 U/L Total Protein 6.9 5.7-8.2 g/dL Albumin 3.6 3.2-4.8 g/dL Current Medications Medications (Trade) Dose Ordered Sig/Anil Route Start Time Stop Time Status Last Admin Albuterol (Ventolin Medneb) 2.5 mg ONCE ONCE NEB 06/11/25 00:15 06/11/25 00:17 DC 06/11/25 00:27 Ipratropium [place] (Atrovent Medneb) 0.5 mg ONCE ONCE NEB 06/11/25 00:15 06/11/25 00:17 DC 06/11/25 00:27 Methylprednisolone Sodium Succinate (Solu Medrol) 125 mg ONCE ONCE IM 06/11/25 00:15 06/11/25 00:17 DC 06/11/25 00:57 Insulin Human Regular (InsuLIN R) 10 units ONCE ONCE IV 06/11/25 01:15 06/11/25 01:16 DC 06/11/25 01:42 Clonidine HCl (Catapres Tablet) 0.2 mg ONCE ONCE PO 06/11/25 01:15 06/11/25 01:16 DC 06/11/25 01:43 Sodium Chloride 1,000 ml @ 1,000 mls/hr Q1H ONCE IV 06/11/25 01:15 06/11/25 02:14 DC 06/11/25 01:29 X-Ray, Labs, Meds, VS Comment Patient's respiratory status has improved after breathing treatment and steroid Patient will be admitted for uncontrolled diabetes type 2, patient was given 10 units IV insulin and no significant change to her blood sugars Patient takes Lantus at nighttime metformin and glipizide during the day. It is less likely that those will bring down her blood sugar so patient will be admitted. Time of 1ST Reevaluation: 03:09 Reevaluation 1ST: Improved Patient Education/Counseling: Diagnosis, Treatment Family Education/Counseling: Diagnosis SEPSIS Sepsis Screen Date sepsis recognized/suspect: Jun 11, 2025 Time Sepsis recognized/suspect: 104 Recent Procedure: No On Antibiotic Therapy: No Respiratory Rate >20: Yes Heart Rate >90: Yes Temp<36 C (96.8 F) or >38.3 C: No SBP <90 or MAP <65 mmHG: No New Acute Mental Status Change: No Is the patient on CPAP, BIPAP,: No Physician Orders Chest Portable (06/11/25 00:09) Blood Culture (06/11/25 00:09) Insulin R (Human) (Insulin R) (06/11/25 03:00) Hydralazine Injection (Apresoline Inject (06/11/25 03:00) Vital Signs Date Time Temp Pulse Resp B/P (MAP) Pulse Ox O2 Delivery O2 Flow Rate FiO2 06/11/25 01:43 178/107 06/11/25 01:05 104 24 95 Nasal Cannula* 2 28 06/11/25 01:03 98.9 104 24 181/95 (123) 95 98.9 06/11/25 00:27 20 99 Non-Rebreather 12 N/A 06/11/25 00:00 114 24 190/109 91 Laboratory Tests Test 06/11/25 00:23 Lactic Acid Level 0.9 mmol/L (0.4-2.0) White Blood Count 10.4 10^3/uL (4.4-10.8) Medications Medications Dose Ordered Sig/Anil Route Start Time Stop Time Status Last Admin Dose Admin Albuterol 2.5 mg ONCE ONCE NEB 06/11/25 00:15 06/11/25 00:17 DC 06/11/25 00:27 Clonidine HCl 0.2 mg ONCE ONCE PO 06/11/25 01:15 06/11/25 01:16 DC 06/11/25 01:43 Insulin Human Regular 10 units ONCE ONCE IV 06/11/25 01:15 06/11/25 01:16 DC 06/11/25 01:42 Ipratropium [place] 0.5 mg ONCE ONCE NEB 06/11/25 00:15 06/11/25 00:17 DC 06/11/25 00:27 Methylprednisolone Sodium Succinate 125 mg ONCE ONCE IM 06/11/25 00:15 06/11/25 00:17 DC 06/11/25 00:57 Sodium Chloride 1,000 ml @ 1,000 mls/hr Q1H ONCE IV 06/11/25 01:15 06/11/25 02:14 DC 06/11/25 01:29 Departure 1 Departure Time of Disposition: 03:05 Impression: Primary Impression: Asthma exacerbation Qualified Codes: J45.41 - Moderate persistent asthma with (acute) exacerbation Additional Impressions: Diabetes type 2, uncontrolled Qualified Codes: E11.65 - Type 2 diabetes mellitus with hyperglycemia Hypertensive urgency Disposition: ADMITTED INPATIENT Condition: Stable Critical Care Note Critical Care Time?: No Stability Stability form required: No Heart Score Heart Score: Heart Score Response (Comments) Value History N/A 0 EKG N/A 0 Age N/A 0 Risk Factors N/A 0 Troponin N/A 0 Total 0 RYAN RAI Jun 11, 2025 03:09
[2025-06-11] MEDS ORDERED: guaiFENesin-DM 100/10mg/5ml SYR PO PRN (04:15)
[2025-06-11] MEDS ORDERED: ALBUTEROL SULF 2.5 MG/0.5ML(0.5%) NEB SOLN NEB PRN (04:15)
[2025-06-11] MEDS ORDERED: IPRATROPIUM BROM 0.5 MG/2.5ML INH SOL NEB PRN (04:15)
[2025-06-11] MEDS ORDERED: DEXTROSE (50%) 50ML SYRG IV PRN ×3 (04:15→14:30)
[2025-06-11] MEDS: hydrALAZINE HCL 20 MG/ML VL IV ONE (04:24)
[2025-06-11] MEDS: SODIUM CHLORIDE 0.9% 500 ML IV ONE (04:27)
--- NOTE | 2025-06-11 05:03 | DVHHP2 ---
History of Present Illness Reason for Visit: SHORTNESS FOR BREATH History of Present Illness 39-year-old female presents for evaluation of shortness for breath. Patient endorses a four day history of worsening shortness for breath with associated productive cough and intermittent chills. She also reports her blood sugar has been running high greater than 200s over the past three days. No abdominal pain, nausea or vomiting. No dysuria. No chest pain. Past Medical History Hypertension and diabetes mellitus Past Surgical History Denies Family History Noncontributory Smoke: No ALCOHOL: none Drugs: None Lives: with Family Review of Systems Review of Systems Review of systems are currently negative otherwise addressed in HPI. Allergies: Coded Allergies: NO KNOWN ALLERGIES (Unverified , 08/27/23) Medications Current Medications Medications Dose Ordered Sig/Anil Route Start Time Stop Time Status Last Admin Dose Admin Albuterol 2.5 mg Q6HPRN PRN NEB 06/11/25 04:15 Ceftriaxone Sodium 50 ml @ 100 mls/hr DAILY@09 IV 06/12/25 09:00 Azithromycin 250 ml @ 125 mls/hr DAILY IV 06/12/25 10:00 Lisinopril 10 mg DAILY PO 06/11/25 10:00 Hydralazine HCl 10 mg Q6HP PRN IV 06/11/25 04:15 Ipratropium [place] 0.5 mg Q6HPRN PRN NEB 06/11/25 04:15 Methylprednisolone Sodium Succinate 40 mg DAILY IV 06/11/25 10:00 Diagnostic Test (Pha) 1 strip Q6HR 06/11/25 06:00 Insulin Human Regular Q6HR SC 06/11/25 06:00 Dextrose 50 ml UD PRN IV 06/11/25 04:15 Acetaminophen/ Hydrocodone Bitart 1 tab Q4HP PRN PO 06/11/25 04:15 Temazepam 15 mg QHSP PRN PO 06/11/25 04:15 Ondansetron HCl 4 mg Q4HP PRN IV 06/11/25 04:15 Acetaminophen 650 mg Q6HP PRN PO 06/11/25 04:15 Guaifenesin/ Dextromethorphan 10 ml Q4HP PRN PO 06/11/25 04:15 Exam Vital Signs Vital Signs Date Time Temp Pulse Resp B/P (MAP) Pulse Ox O2 Delivery O2 Flow Rate FiO2 10/29/25 04:24 163/90 06/11/25 04:23 104 24 95 2.0 06/11/25 04:00 98.5 98.5 06/11/25 01:05 Nasal Cannula* 28 Exam Gen: 39-year-old female in mild distress Skin: Warm, dry, normal color and texture, no rash. HEENT: Normocephalic atraumatic, mucous membranes moist and pink. Neck: Cervical and supraclavicular nodes normal without enlargement, trachea is midline, thyroid gland is normal without masses. Pulmonary: Diminished breath sounds bilaterally. Cardiac: Regular rate and rhythm. No murmur Abdomen: Soft, nontender, nondistended, bowel sounds present all 4 quadrants, no guarding, no rigidity, no organomegaly. Extremities: No cyanosis, clubbing, no edema Neuro: Cranial nerves II through XII grossly intact, normal affect and speech, no focal motor deficits. Labs/Xrays ORDERING PHYSICIAN: RYAN RAI PROCEDURE(s): CXRP - CHEST PORTABLE REASON: SOB ORDER NUMBER(s): [id number], ACCESSION NUMBER(s): [id number] CHEST RADIOGRAPH Indication: SOB Technique: Single frontal view of the chest was obtained COMPARISON: None FINDINGS: Lines and Tubes: None Lungs: Moderate diffuse increased prominence of the pulmonary vasculature and mild patchy right basilar pulmonary airspace disease. Pleura: No effusion. No pneumothorax. Cardiomediastinal contours: Unremarkable Bones: Unremarkable IMPRESSION: 1. Moderate diffuse increased prominence of the pulmonary vasculature and mild patchy right basilar pulmonary airspace disease. ATED BY: LENNY WILCOX MD Labs Test 06/11/25 02:18 06/11/25 01:35 06/11/25 00:23 Range/Units Urine Color Colorless Yellow Urine Clarity Clear Clear Urine pH 6.5 5.0-9.0 Urine Specific [place] 1.016 1.001-1.035 Urine Protein 2+ H Negative Urine Ketones Negative Negative Urine Blood 1+ H Negative /uL Urine Nitrite Negative Negative Urine Bilirubin Negative Negative Urine Urobilinogen Normal Negative mg/dL Urine Leukocyte Esterase Negative Negative /uL Urine RBC 4 0 - 4 /hpf Urine Microscopic WBC 2 0-5 /HPF Urine Squamous Epithelial Cells Few <5 /hpf Urine Bacteria None seen None Seen /hpf Urine Glucose 4+ H Normal mg/dL POC Glucose 432 *H 70-106 mg/dl White Blood Count 10.4 4.4-10.8 10^3/uL Red Blood Count 4.16 4.0-5.20 10^6/uL Hemoglobin 11.3 L 12.2-16.2 g/dL Hematocrit 34.8 L 36.0-46.0 % Mean Corpuscular Volume 83.6 80.0-100.0 fL Mean Corpuscular Hemoglobin 27.1 L 28.0-32.0 pg Mean Corpuscular Hemoglobin Concent 32.4 32.0-36.0 g/dL Red Cell Distribution Width 13.3 11.8-14.3 % Platelet Count 265 140-450 10^3/uL Mean Platelet Volume 10.9 H 6.9-10.8 fL Neutrophils (%) (Auto) 65.6 37.0-80.0 % Lymphocytes (%) (Auto) 25.8 10.0-50.0 % Monocytes (%) (Auto) 6.0 0.0-12.0 % Eosinophils (%) (Auto) 2.2 0.0-7.0 % Basophils (%) (Auto) 0.4 0.0-2.0 % Neutrophils # (Auto) 6.9 1.6-8.6 10 ^3/uL Lymphocytes # (Auto) 2.7 0.4-5.4 10 ^3/uL Monocytes # (Auto) 0.6 0-1.3 10 ^3/uL Eosinophils # (Auto) 0.2 0-0.8 10 ^3/uL Basophils # (Auto) 0 0-0.2 10 ^3/uL Nucleated Red Blood Cells 0.0 % Sodium Level 131 L 136-145 mmol/L Potassium Level 4.3 3.5-5.1 mmol/L Chloride Level 102 98-107 mmol/L Carbon Dioxide Level 24 20-31 mmol/L Anion Gap 5 5-15 Blood Urea Nitrogen 26 H 9-23 mg/dL Creatinine 2.39 H 0.550-1.02 mg/dL Glomerular Filtration Rate Calc 26 >90 mL/min BUN/Creatinine Ratio 10.9 10.0-20.0 Serum Glucose 482 *H 74-106 mg/dL Lactic Acid Level 0.9 0.4-2.0 mmol/L Calcium Level 8.6 L 8.7-10.4 mg/dL Total Bilirubin 0.3 0.2-1.0 mg/dL Aspartate Amino Transferase (AST) 17 13-40 U/L Alanine Aminotransferase (ALT) 14 7-40 U/L Alkaline Phosphatase 162 H 46-116 U/L Total Protein 6.9 5.7-8.2 g/dL Albumin 3.6 3.2-4.8 g/dL SEPSIS Sepsis Screen Date sepsis recognized/suspect: Jun 11, 2025 Time Sepsis recognized/suspect: 104 Recent Procedure: No On Antibiotic Therapy: No Respiratory Rate >20: Yes Heart Rate >90: Yes Temp<36 C (96.8 F) or >38.3 C: No SBP <90 or MAP <65 mmHG: No New Acute Mental Status Change: No Is the patient on CPAP, BIPAP,: No Physician Orders Chest Portable (06/11/25 00:09) Blood Culture (06/11/25 00:09) Albuterol Medneb (Ventolin Medneb) (06/11/25 04:15) Lisinopril Tablet (Zestril Tablet) (06/11/25 10:00) Sodium Chloride 0.9% (06/11/25 04:15) Basic Metabolic Panel (06/12/25 04:00) Hydralazine Injection (Apresoline Inject (06/11/25 04:15) Ipratropium Medneb (Atrovent Medneb) (06/11/25 04:15) Methylprednisolone Sod Succ (Solu Medrol (06/11/25 10:00) Consistent Carb(Ccho)Diabetes (06/11/25 Breakfast) Glucose Blood (Accu-Chek Comfort Curve T (06/11/25 06:00) Insulin R (Human) (Insulin R) (06/11/25 06:00) Dextrose 50% Syringe (06/11/25 04:15) Admit (06/11/25 04:11) Hydrocodone-Acet 5/325mg Tab ([place] /32 (06/11/25 04:15) Temazepam (Restoril) (06/11/25 04:15) Ondansetron Hcl (Zofran) (06/11/25 04:15) Complete Blood Count (06/12/25 04:00) Condition: Stable (06/11/25 04:11) Acetaminophen Tablet (Tylenol Tablet) (06/11/25 04:15) Bedrest With Bathroom Privileg (06/11/25 04:11) Guaifenesin-Dextromet Liquid (Robitussin (06/11/25 04:15) Azithromycin 500mg/ 250ml (Zithromax 50 (06/11/25 05:30) Ceftriaxone 1gm/50ml (Rocephin) (06/12/25 09:00) Azithromycin 500mg/ 250ml (Zithromax 50 (06/12/25 10:00) *Dr. Hodgson [facility] (06/11/25 05:00) Vital Signs Date Time Temp Pulse Resp B/P (MAP) Pulse Ox O2 Delivery O2 Flow Rate FiO2 06/11/25 04:24 163/90 06/11/25 04:23 104 24 181/95 95 2.0 06/11/25 04:00 98.5 91 19 163/90 (114) 98 98.5 06/11/25 01:43 178/107 06/11/25 01:05 104 24 95 Nasal Cannula* 2 28 06/11/25 01:03 98.9 104 24 181/95 (123) 95 98.9 06/11/25 00:27 20 99 Non-Rebreather 12 N/A 06/11/25 00:00 114 24 190/109 91 Laboratory Tests Test 06/11/25 00:23 Lactic Acid Level 0.9 mmol/L (0.4-2.0) White Blood Count 10.4 10^3/uL (4.4-10.8) Medications Medications Dose Ordered Sig/Anil Route Start Time Stop Time Status Last Admin Dose Admin Albuterol 2.5 mg ONCE ONCE NEB 06/11/25 00:15 06/11/25 00:17 DC 06/11/25 00:27 2.5 MG Ceftriaxone Sodium 50 ml @ 100 mls/hr ONCE ONCE IV 06/11/25 04:30 06/11/25 04:59 DC 06/11/25 04:30 100 MLS/HR Clonidine HCl 0.2 mg ONCE ONCE PO 06/11/25 01:15 06/11/25 01:16 DC 06/11/25 01:43 0.2 MG Hydralazine HCl 5 mg ONCE ONCE IV 06/11/25 03:00 06/11/25 03:06 DC 06/11/25 04:24 5 MG Insulin Human Regular 10 units ONCE ONCE IV 06/11/25 01:15 06/11/25 01:16 DC 06/11/25 01:42 10 UNITS Insulin Human Regular 10 units ONCE ONCE IV 06/11/25 03:00 06/11/25 03:06 DC 06/11/25 04:25 10 UNITS Ipratropium [place] 0.5 mg ONCE ONCE NEB 06/11/25 00:15 06/11/25 00:17 DC 06/11/25 00:27 0.5 MG Methylprednisolone Sodium Succinate 125 mg ONCE ONCE IM 06/11/25 00:15 06/11/25 00:17 MO 06/11/25 00:57 125 MG Sodium Chloride 500 ml @ 500 mls/hr Q1H ONCE IV 06/11/25 04:15 06/11/25 05:14 06/11/25 04:27 500 MLS/HR Sodium Chloride 1,000 ml @ 1,000 mls/hr Q1H ONCE IV 06/11/25 01:15 06/11/25 02:14 DC 06/11/25 01:29 1,000 MLS/HR Assessment/Plan Assessment/Plan Assessment Community-acquired pneumonia Uncontrolled diabetes mellitus Accelerated hypertension Acute renal failure Plan Admit the patient to Med surge to the hospitalist Rocephin/azithromycin Med nebs Resume home medications Nephrology consultation Continue treatment per orders. Plan discussed with: Patient My Orders Orders - GEE KURTZ AGACNP Procedure Category Date Status Time Albuterol Medneb PHA 06/11/25 In Process (Ventolin Medneb) 04:15 Lisinopril Tablet PHA 06/11/25 In Process (Zestril Tablet) 10:00 Sodium Chloride 0.9% PHA 06/11/25 In Process 04:15 Basic Metabolic Panel LAB 06/12/25 Verified 04:00 Hydralazine Injection PHA 06/11/25 In Process (Apresoline Inject 04:15 Ipratropium Medneb PHA 06/11/25 In Process (Atrovent Medneb) 04:15 Methylprednisolone PHA 06/11/25 In Process Sod Succ (Solu Medrol 10:00 Consistent DIET 10/29/25 Transmitted Carb(Ccho)Diabetes Breakfast Glucose Blood PHA 06/11/25 In Process (Accu-Chek Comfort 06:00 Insulin R (Human) PHA 06/11/25 In Process (Insulin R) 06:00 Dextrose 50% Syringe PHA 06/11/25 In Process 04:15 Admit ADMIT 06/11/25 Transmitted 04:11 Hydrocodone-Acet PHA 06/11/25 In Process 5/325mg Tab ([place] 04:15 Temazepam (Restoril) PHA 06/11/25 In Process 04:15 Ondansetron Hcl PHA 06/11/25 In Process (Zofran) 04:15 Complete Blood Count LAB 06/12/25 Verified 04:00 Condition: Stable NATASHA 06/11/25 In Process 04:11 Acetaminophen Tablet PHA 06/11/25 In Process (Tylenol Tablet) 04:15 Bedrest With Bathroom NATASHA 06/11/25 In Process Privileg 04:11 Guaifenesin-Dextromet PHA 06/11/25 In Process Liquid (Robitussin 04:15 Azithromycin 500mg/ PHA 06/11/25 In Process 250ml (Zithromax 50 05:30 Ceftriaxone 1gm/50ml PHA 06/12/25 In Process (Rocephin) 09:00 Azithromycin 500mg/ PHA 06/12/25 In Process 250ml (Zithromax 50 10:00 *Dr. Hodg[facility] CONS 06/11/25 Verified -[place] 05:00 Date of Service: Jun 11, 2025 Billing Provider: GEE KURTZ Common Visit Codes: [id number] INP/OBS CARE (HIGH) GEE KURTZ Jun 11, 2025 05:03
[2025-06-11] MEDS: AZITHROMYCIN 500MG/ 250ML 250 ML IV ONE (05:30)
[2025-06-11] MEDS: ACCU-CHEK COMFORT CURVE STRIP VI SCH ×3 (06:18→17:34)
[2025-06-11] MEDS: InsuLIN REG 1unit/0.01ml Soln (100units/ml) SC SCH ×4 (06:18→22:35)
[2025-06-11] MEDS ORDERED: methylPREDNISolone SOD SUCC 40 MG/ML VL IV SCH (10:00)
[2025-06-11] MEDS ORDERED: LISINOPRIL 5 MG TAB PO SCH (10:00)
[2025-06-11] MEDS ORDERED: INSULIN LANTUS (GLARGINE) 1 /0.01ml (100units/ml) SC SCH (10:45)
--- NOTE | 2025-06-11 11:29 | DVHCONRES ---
Date Seen: Jun 11, 2025 Resident Creating Document: ESTRELLA RILEY RESDIENT History of Present Illness This is a 39-year-old lady with past medical history of diabetes, hypertension, diabetic foot came to the hospital due to shortness of breaths and cough. Family History: Diabetes mellitus MOTHER FATHER, FH: myocardial infarction FATHER, Hypertension MOTHER FATHER, Allergies: Coded Allergies: NO KNOWN ALLERGIES (Unverified , 08/27/23) Home Meds No Active Prescriptions or Reported Meds Current Medications Current Medications Medications (Trade) Dose Ordered Sig/Anil Route PRN Reason Start Time Stop Time Status Last Admin Albuterol (Ventolin Medneb) 2.5 mg Q6HPRN PRN NEB SHORTNESS OF BREATH 06/11/25 04:15 Ceftriaxone Sodium 50 ml @ 100 mls/hr DAILY@09 IV 06/12/25 09:00 Azithromycin 250 ml @ 125 mls/hr DAILY IV 06/12/25 10:00 Lisinopril (Zestril Tablet) 10 mg DAILY PO 06/11/25 10:00 Hydralazine HCl (Apresoline Injection) 10 mg Q6HP PRN IV SBP>150 06/11/25 04:15 Ipratropium [place] (Atrovent Medneb) 0.5 mg Q6HPRN PRN NEB SHORTNESS OF BREATH 06/11/25 04:15 Methylprednisolone Sodium Succinate (Solu Medrol) 40 mg DAILY IV 06/11/25 10:00 Diagnostic Test (Pha) (Accu-Chek Comfort Curve T) 1 strip Q6HR 06/11/25 06:00 06/11/25 10:45 DC 06/11/25 06:18 Insulin Human Regular (InsuLIN R) Q6HR SC 06/11/25 06:00 06/11/25 10:45 DC 06/11/25 06:18 Dextrose 50 ml UD PRN IV Blood Sugar LESS THAN 60 06/11/25 04:15 06/11/25 10:45 DC Acetaminophen/ Hydrocodone Bitart ([place] 5/325MG Tab) 1 tab Q4HP PRN PO MODERATE PAIN (4-6 PAIN SCALE) 06/11/25 04:15 Temazepam (Restoril) 15 mg QHSP PRN PO FOR INSOMNIA 06/11/25 04:15 Ondansetron HCl (Zofran) 4 mg Q4HP PRN IV NAUSEA / VOMITING 06/11/25 04:15 Acetaminophen (Tylenol Tablet) 650 mg Q6HP PRN PO PAIN SCALE 1-3 OR TEMP>100.4 06/11/25 04:15 Guaifenesin/ Dextromethorphan (Robitussin-Dm Liquid) 10 ml Q4HP PRN PO FOR COUGH 06/11/25 04:15 Insulin Glargine (Lantus) 10 units QAM SC 06/11/25 10:45 Diagnostic Test (Pha) (Accu-Chek Comfort Curve T) 1 strip IQ4HR 06/11/25 12:00 Insulin Human Regular (InsuLIN R) IQ4HR SC 06/11/25 12:00 Dextrose 50 ml UD PRN IV Blood Sugar LESS THAN 60 06/11/25 10:45 Review of Systems Patient seen and examined at the bedside. Patient is still complaining of shortness of breaths. Vital Signs Vital Signs Date Time Temp Pulse Resp B/P (MAP) Pulse Ox O2 Delivery O2 Flow Rate FiO2 06/11/25 07:29 98.8 85 21 146/87 (106) 100 98.8 06/11/25 07:29 Nasal Cannula* 2 28 Physical Exam General Appearance: Alert, Oriented X3, Cooperative, No acute distress HEENT: Atraumatic, PERRLA, EOMI, Mucous membrane moist/pink Respiratory: Bilateral crackles Cardiovascular: Regular rate, Normal S1, Normal S2, No murmurs, no chest wall tenderness Abdominal: Normal bowel sounds, Soft, No tenderness, No hepatospenomegaly, No masses Extremities: Bilateral grade 1 pedal edema Skin: No rashes, No breakdown, No significant lesion Neuro: Normal gait, Normal speech, Strength at 5/5 X4 ext, Normal tone, Sensation intact, Cranial nerves 3-12 NL, Reflexes 2+ Psych/Mental Status: Mental status NL, Mood NL Labs/Diagnostic Data Labs Test 06/11/25 02:18 06/11/25 01:35 06/11/25 00:23 Range/Units Urine Color Colorless Yellow Urine Clarity Clear Clear Urine pH 6.5 5.0-9.0 Urine Specific [place] 1.016 1.001-1.035 Urine Protein 2+ H Negative Urine Ketones Negative Negative Urine Blood 1+ H Negative /uL Urine Nitrite Negative Negative Urine Bilirubin Negative Negative Urine Urobilinogen Normal Negative mg/dL Urine Leukocyte Esterase Negative Negative /uL Urine RBC 4 0 - 4 /hpf Urine Microscopic WBC 2 0-5 /HPF Urine Squamous Epithelial Cells Few <5 /hpf Urine Bacteria None seen None Seen /hpf Urine Glucose 4+ H Normal mg/dL POC Glucose 432 *H 70-106 mg/dl White Blood Count 10.4 4.4-10.8 10^3/uL Red Blood Count 4.16 4.0-5.20 10^6/uL Hemoglobin 11.3 L 12.2-16.2 g/dL Hematocrit 34.8 L 36.0-46.0 % Mean Corpuscular Volume 83.6 80.0-100.0 fL Mean Corpuscular Hemoglobin 27.1 L 28.0-32.0 pg Mean Corpuscular Hemoglobin Concent 32.4 32.0-36.0 g/dL Red Cell Distribution Width 13.3 11.8-14.3 % Platelet Count 265 140-450 10^3/uL Mean Platelet Volume 10.9 H 6.9-10.8 fL Neutrophils (%) (Auto) 65.6 37.0-80.0 % Lymphocytes (%) (Auto) 25.8 10.0-50.0 % Monocytes (%) (Auto) 6.0 0.0-12.0 % Eosinophils (%) (Auto) 2.2 0.0-7.0 % Basophils (%) (Auto) 0.4 0.0-2.0 % Neutrophils # (Auto) 6.9 1.6-8.6 10 ^3/uL Lymphocytes # (Auto) 2.7 0.4-5.4 10 ^3/uL Monocytes # (Auto) 0.6 0-1.3 10 ^3/uL Eosinophils # (Auto) 0.2 0-0.8 10 ^3/uL Basophils # (Auto) 0 0-0.2 10 ^3/uL Nucleated Red Blood Cells 0.0 % Sodium Level 131 L 136-145 mmol/L Potassium Level 4.3 3.5-5.1 mmol/L Chloride Level 102 98-107 mmol/L Carbon Dioxide Level 24 20-31 mmol/L Anion Gap 5 5-15 Blood Urea Nitrogen 26 H 9-23 mg/dL Creatinine 2.39 H 0.550-1.02 mg/dL Glomerular Filtration Rate Calc 26 >90 mL/min BUN/Creatinine Ratio 10.9 10.0-20.0 Serum Glucose 482 *H 74-106 mg/dL Lactic Acid Level 0.9 0.4-2.0 mmol/L Calcium Level 8.6 L 8.7-10.4 mg/dL Total Bilirubin 0.3 0.2-1.0 mg/dL Aspartate Amino Transferase (AST) 17 13-40 U/L Alanine Aminotransferase (ALT) 14 7-40 U/L Alkaline Phosphatase 162 H 46-116 U/L Total Protein 6.9 5.7-8.2 g/dL Albumin 3.6 3.2-4.8 g/dL Assessment This is a 39-year-old lady with past medical history of diabetes, hypertension, diabetic foot came to the hospital due to shortness of breaths and cough. Nephrology consulted for NONI. Assessment: NONI, on CKD, secondary to hemodynamic mediated Mild hyponatremia due to excess H2O Congestive heart failure exacerbation NSTEMI Diabetes type 2 with hyperglycemia Mild anemia Hypertension Chronic NSAIDs use Obesity Nephrotic syndrome likely due to diabetic nephropathy Plan/recommendation: (Dr. Vasquez) * Closely monitor fluid and electrolytes * Avoid nephrotoxic medications * ' strict I&Os * IV Lasix 40 mg daily * Strict I&Os, avoid nephrotoxic drugs * Renal diet * Cardiology consult * We will follow up with the patient Patient seen and examined by myself today on rounds with the medicine resident, I agree with his assessment and plan Thank you for giving us the opportunity to take care of your patient. Please call back if you have any questions/concerns. Plan discussed with: Patient, Other (RN) ESTRELLA RILEY Jun 11, 2025 11:29 DEUCE VASQUEZ MD Jun 12, 2025 13:44
[2025-06-11 12:08] LABS: Total Iron Binding Capacity 295.0 ug/dL (250-425)
[2025-06-11 12:09] LABS: Iron 47.0 ug/dL (50-170)
[2025-06-11] MEDS: FUROSEMIDE 40 MG/4 ML VIAL IV ONE (12:11)
[2025-06-11] MEDS: INSULIN LANTUS (GLARGINE) 1 /0.01ml (100units/ml) SC SCH ×2 (12:35→18:07)
--- NOTE | 2025-06-11 12:49 | DVH ---
INDICATION: ckd TECHNIQUE: Multiple real-time sonographic images of the kidneys and bladder were obtained. COMPARISON: None FINDINGS: RIGHT kidney measures 10.7 cm in length. No hydronephrosis. LEFT kidney measures 10.3 cm in length. No hydronephrosis. No large intraluminal masses are seen in the bladder. IMPRESSION: 1. Unremarkable examination.
[2025-06-11 13:03] LABS: Uric Acid 4.4 mg/dL (3.1-7.8)
[2025-06-11 13:05] LABS: Magnesium 2.1 mg/dL (1.6-2.6)
[2025-06-11] MEDS: levoFLOXacin 500 MG TAB PO ONE (15:49)
--- NOTE | 2025-06-11 17:29 | DVHPNRES ---
Progress Note Date Seen: Jun 11, 2025 Resident Creating Document: ROSY LOU RESIDENT Medical Necessity Reason Pt with a Central, PICC or Fol: No Subjective Review of Systems History on arrival: This is a 39-year-old female with past medical history of hypertension, diabetes, presented to the ER with chief complain of shortness of breaths, congestion and productive cough. Patient endorses a four day history of worsening shortness for breath with associated productive cough, with sputum white in color. Shortness of breaths is present at rest. She also complained of nausea, vomiting, diarrhea since last week. She reported feeling nauseous early in the morning, followed by vomiting episode she had 1 episode of watery emesis every day since last 1 week, no hematemesis reported. Her diarrhea resolved 3 days back, complains of dowling colored stools now. She also complains of associated headache, dizziness since last 1 week. She also reports her blood sugar has been running high greater than 200s over the last week. She denies fever, chills, abdominal pain, pain or burning micturition. PMHx: Hypertension, diabetes mellitus PSHx: No significant history Family history: Noncontributory Social history: Denies smoking, alcohol, recreational drug use. Lives in house with family, full code. Home medication: Lantus, losartan Allergic history: Known allergies ROS: Constitutional: Denies weight loss, fever and chills. HEENT: Denies changes in vision and hearing. Respiratory: Shortness of breadth, congestion, productive cough Cardiovascular: Denies chest discomfort or palpitations GI: Nausea, vomiting, diarrhea. Denies abdominal pain : Denies dysuria and urinary frequency. Musculoskeletal: Denies myalgias and joint pain Skin: Denies rash and pruritus. Neurological: Denies dizziness, headache, vision or hearing problems 06/11/2025: Patient was seen at bedside today. No new complaints. Patient switched to oral antibiotic in context of restricting fluid in setting of heart failure. Objective vital signs Vital Sign Date Time Temp Pulse Resp B/P (MAP) Pulse Ox O2 Delivery O2 Flow Rate FiO2 06/11/25 12:55 97.7 80 17 154/88 (110) 96 97.7 06/11/25 07:29 Nasal Cannula* 2 28 Total Intake and Output 06/10/25 06/10/25 06/11/25 15:00 23:00 07:00 Intake Total 675 ml Balance 675 ml medications Current Medications Medications Dose Ordered Sig/Anil Route Start Time Stop Time Status Last Admin Dose Admin Albuterol 2.5 mg Q6HPRN PRN NEB 06/11/25 04:15 Ceftriaxone Sodium 50 ml @ 100 mls/hr DAILY@09 IV 06/12/25 09:00 Azithromycin 250 ml @ 125 mls/hr DAILY IV 06/12/25 10:00 Hydralazine HCl 10 mg Q6HP PRN IV 06/11/25 04:15 Ipratropium [place] 0.5 mg Q6HPRN PRN NEB 06/11/25 04:15 Acetaminophen/ Hydrocodone Bitart 1 tab Q4HP PRN PO 06/11/25 04:15 Temazepam 15 mg QHSP PRN PO 06/11/25 04:15 Ondansetron HCl 4 mg Q4HP PRN IV 06/11/25 04:15 Acetaminophen 650 mg Q6HP PRN PO 06/11/25 04:15 Guaifenesin/ Dextromethorphan 10 ml Q4HP PRN PO 06/11/25 04:15 Dextrose 50 ml UD PRN IV 06/11/25 10:45 Furosemide 40 mg DAILY IV 06/12/25 10:00 Amlodipine Besylate 10 mg DAILY PO 06/12/25 10:00 Insulin Glargine 15 units BID SC 06/11/25 18:00 Diagnostic Test (Pha) 1 strip ACHS 06/11/25 17:00 Insulin Human Regular HS SC 06/11/25 22:00 Insulin Human Regular AC SC 06/11/25 17:00 Dextrose 50 ml UD PRN IV 06/11/25 14:30 Levofloxacin 250 mg DAILY PO 06/12/25 10:00 Future Hold Ergocalciferol 50,000 unit Q7D PO 06/11/25 16:00 Examination General: Patient alert and oriented in person, place and time. Patient following commands. HEENT: Normocephalic, atraumatic, moist mucous membranes Respiratory/pulmonary: Clear lungs bilaterally, vesicular murmurs present in almost all lung lobo, no associated crackles or wheezes. Cardiovascular: Normal heart sounds S1 and S2 with no associated murmurs Abdomen: Tenderness in bilateral lower quadrant with bilateral flank tenderness. No masses palpated, soft abdomen without guarding. Extremities: There is no peripheral edema present at the lower extremities. Peripheral Pulses: 3+ Radial (R). 3+ Radial (L). 3+ Dorsalis pedis (R). 3+ Dorsalis pedis(L) Skin: No rashes or pruritus, there is no sacral edema present at this time. Neurological: Intact cranial nerves with no focal neurologic deficits laboratory and microbiology Laboratory Tests 06/11/25 00:23 Test 06/11/25 00:23 Range/Units Serum Glucose 482 *H 74-106 mg/dL Problem List/Assessment/Plan Problem List/Assessment/Plan Congestive heart failure, systolic versus diastolic, likely new diagnosis Echocardiogram pending BNP elevated Continue IV ceftriaxone and azithromycin Sepsis due to Community-acquired pneumonia due to Gram-negative, Gram-positive bacteria, improving Lactic acid WNL. Ordered blood culture, sputum culture Continue IV ceftriaxone, azithromycin Holding off IV fluids in context of possible heart failure Med treatment with albuterol, ipratropium given Insulin-dependent diabetes mellitus type 2, uncontrolled Simple hyperglycemia High serum osmolarity A1c more than 14 Started on sliding scale insulin, basal Lantus Discontinued methylprednisolone in context of persistently high hyperglycemia; no indications to continue Hypertensive emergency Acute on chronic renal failure stage 2 hemodynamically mediated (VMN) Normocytic, normochromic anemia, likely due to above NSTEMI type 2 likely due to above Avoid nephrotoxins Low salt diet, oral hydration Holding off IV fluids in context of possible heart failure Repeat [facility] Nephrology on board, recommended IV Lasix, strict I&O, renal diet Insomnia Ordered Tenazepam Obesity class 1 DIET: Consistent carb with sodium restriction diet DVT PROPHYLAXIS: SCD, patient ambulatory GI PROPHYLAXIS: Pepcid in context of low GFR CODE STATUS: Goals of care discussed with patient at bedside for more than 18 minutes. Full code DISPOSITION: Med/surge This medical document was created using an electronic medical record system with [employer] direct computerized dictation system. Although this document has been carefully reviewed, there may still be some phonetic and typographical errors. These areas are purely typographical due to imperfections of the software programs, and do not reflect any compromise in the patient's medical care. Patient's status and plan discussed with the patient. Case discussed with Dr. Mcneal Plan discussed with: Patient, Other (Nurses, family on bedside) My Orders My Orders Orders - GEHLAWAT,ROSY RESIDENT Procedure Category Date Status Time Electrocardigram EKG 06/11/25 Logged 13:27 Date of Service: Jun 11, 2025 Billing Provider: ROSY LOU Common Visit Codes: [id number] INP/OBS CARE(HIGH) Secondary Visit Codes: [id number] CARE PLAN 30 MINUTES ROSY LOU Jun 11, 2025 17:29 HARISH MCNEAL MD Jun 16, 2025 20:38
[2025-06-11] MEDS: ERGOCALCIFEROL 50,000 UNIT(1.25MG) CAP PO SCH (18:05)
[2025-06-11] MEDS: FAMOTIDINE 20 MG TAB PO ONE (19:49)
[2025-06-11 22:21] LABS: Protein, Urine 273.3 mg/dL (1-14)
[2025-06-11] MEDS: HYDROcodone-ACET 5/325MG TAB PO PRN (22:32)
[2025-06-12] VITALS (10 sets, daily range): BP systolic 128–153; BP diastolic 80–99; PULSE 82–89; RESP 16–19; TEMP 97.6–98.8; O2SAT 95–99
[2025-06-12 06:28] LABS: Hematocrit 31.2 % (36.0-46.0); Hemoglobin 10.3 g/dL (12.2-16.2); Mean Corpuscular Hemoglobin 27.0 pg (28.0-32.0); Mean Corpuscular Volume 81.8 fL (80.0-100.0); Nucleated Red Blood Cells % 0.0 %
[2025-06-12 06:36] LABS: Chloride 104 mmol/L (98-107); Potassium 4.3 mmol/L (3.5-5.1)
[2025-06-12 06:37] LABS: Anion Gap 10 (5-15); Carbon Dioxide 22 mmol/L (20-31)
[2025-06-12 06:43] LABS: BUN/Creatinine Ratio 15.9 (10.0-20.0)
[2025-06-12] MEDS: FAMOTIDINE 20 MG TAB PO SCH (06:45)
[2025-06-12 06:46] LABS: Blood Urea Nitrogen 33 mg/dL (9-23); Calcium 8.6 mg/dL (8.7-10.4); Glucose 231 mg/dL (74-106); Sodium 136 mmol/L (136-145)
[2025-06-12] MEDS: ACETAMINOPHEN 325 MG TAB PO PRN ×2 (06:56→12:40)
[2025-06-12] MEDS: FUROSEMIDE 40 MG/4 ML VIAL IV SCH (09:14)
[2025-06-12] MEDS: levoFLOXacin 250 MG TAB PO SCH (09:14)
[2025-06-12 09:24] LABS: COVID19 ANTIGEN SOFIA FIA NEGATIVE (NEGATIVE)
[2025-06-12] MEDS: AZITHROMYCIN 500MG/ 250ML 250 ML IV SCH (09:57)
[2025-06-12] MEDS: INSULIN LANTUS (GLARGINE) 1 /0.01ml (100units/ml) SC ONE (11:22)
[2025-06-12 12:01] LABS: Hematocrit 33.2 % (36.0-46.0)
[2025-06-12 12:03] LABS: Hemoglobin 10.8 g/dL (12.2-16.2)
[2025-06-12] MEDS: FERROUS SULFATE 325mg EC TAB PO ONE (16:09)
[2025-06-12] MEDS: LISINOPRIL 5 MG TAB PO SCH (16:10)
--- NOTE | 2025-06-12 17:07 | DVH ---
CLINICAL HISTORY: Persistent headache TECHNIQUE: Helical scanning was performed of the head from the skull base to the vertex. Multiplanar reconstructions were performed. This exam was performed according to our departmental dose optimizat ion program. Up-to-date CT equipment and radiation dose reduction techniques are utilized as appropri ate. CTDI 51 DLP 809 COMPARISON: CT HEAD WITHOUT CONTRAST on DOS: 11/26/23 FINDINGS: There is no evidence for acute intracranial hemorrhage, acute ischemic changes, mass, mass effect, or extra-axial fluid collection. There is no hydrocephalus or midline shift. There is no effacement of the cerebral sulci and basal subarachnoid cisterns. The dowling-white matter differentiation is well catalina ntained. The imaged paranasal sinuses are clear. IMPRESSION: NO ACUTE INTRACRANIAL ABNORMALITY SEEN.
[2025-06-12 17:36] LABS: HDL Cholesterol 50 mg/dL (40-59)
[2025-06-12 17:45] LABS: Cholesterol 359 mg/dL (< 200); Triglycerides 251 mg/dL (< 150)
--- NOTE | 2025-06-12 18:19 | DVHSR ---
APPROVED REPORT EXAM: Two-dimensional and M-mode echocardiogram with Doppler and color Doppler. INDICATION Heart Failure RISK FACTORS Height: 5'4", Weight: 167 DIMENSIONS LVDd4.8 (3.8-5.7cm)LA (2D)3.9 (1.9-4.0cm)Aortic Root2.6 (2.0-3.7cm) LVDs3.5 (2.5-4.0cm)LA (MM) (1.9-4.0cm)Aortic Cusp Exc1.5 (1.5-2.0cm) EF (%) 52.0 (55-70%)Rt. Atrium3.6 (1.9-4.0cm)Asc. Aorta2.5 cm IVSd1.0 (0.7-1.1cm)RV (D)3.1 (1.8-2.4cm) PWd1.1 (0.7-1.1cm) Mitral Valve MitralMitral Stenosis E wave0.93m/sMV Mean GR.mmHg A wave0.74m/sMV Peak GR.mmHg E/A ratio1.32D MVAcm2 DECEL [id number] 1/2 Tim[place] Aortic Valve Aortic ValveAortic Stenosis V11.25m/Tarah Mean GR.3mmHg V21.22m/Tarah Peak GR.6mmHg LVOT Diameter1.8 (1.8-2.4cm)Doppler AVA2.61cm2 Pulmonic Valve V20.80m/s Other Information Quality : Technically LimitedRhythm : Technically limited study due to body habitus. Conclusion Technically good study. Sinus rhythm. Concentric LVH with mild aortic root enlargement and mild left atrial enlargement. Valves are normal. Left ventricular function is preserved at 55 % with normal right ventricular function. Dopplers unremarkable. No pericardial effusion masses or vegetations.
[2025-06-12] MEDS: ATORVASTATIN 20 MG TAB PO SCH (21:58)
[2025-06-12] MEDS ORDERED: ATORVASTATIN 20 MG TAB PO SCH (22:00)
[2025-06-12] MEDS: INSULIN LANTUS (GLARGINE) 1 /0.01ml (100units/ml) SC SCH (22:10)
[2025-06-13] VITALS (11 sets, daily range): BP systolic 106–165; BP diastolic 72–98; PULSE 74–94; RESP 16–20; TEMP 97.7–98.8; O2SAT 95–99
[2025-06-13] MEDS: hydrALAZINE HCL 20 MG/ML VL IV PRN (01:02)
--- NOTE | 2025-06-13 04:44 | DVH ---
CHEST RADIOGRAPH Indication: SOB; reassess Technique: Single frontal view of the chest was obtained Comparison: XY CHEST PORTABLE on DOS: 06/11/25 FINDINGS: Lines and Tubes: None Lungs: Bilateral lower lobe opacities are similar to prior study. Pleura: No effusion. No pneumothorax. Cardiomediastinal contours: Unremarkable Bones: No acute osseous abnormality. IMPRESSION: 1. Bilateral lower lobe opacities are similar to prior study.
[2025-06-13 06:46] LABS: Hematocrit 34.2 % (36.0-46.0); Hemoglobin 11.3 g/dL (12.2-16.2); Mean Corpuscular Hemoglobin 27.0 pg (28.0-32.0); Mean Corpuscular Volume 81.9 fL (80.0-100.0); Nucleated Red Blood Cells % 0.1 %
[2025-06-13 07:21] LABS: Calcium 8.9 mg/dL (8.7-10.4)
[2025-06-13 07:22] LABS: Anion Gap 9 (5-15); Carbon Dioxide 24 mmol/L (20-31)
[2025-06-13 07:27] LABS: Chloride 105 mmol/L (98-107); Potassium 3.5 mmol/L (3.5-5.1); Sodium 138 mmol/L (136-145)
[2025-06-13 07:28] LABS: BUN/Creatinine Ratio 15.5 (10.0-20.0)
[2025-06-13 07:30] LABS: Blood Urea Nitrogen 34 mg/dL (9-23); Glucose 145 mg/dL (74-106)
--- NOTE | 2025-06-13 08:35 | ECG ---
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
[2025-06-13] MEDS: FERROUS SULFATE 325mg EC TAB PO SCH (10:44)
--- NOTE | 2025-06-13 11:11 | DVHPNRES ---
Progress Note Date Seen: Jun 12, 2025 Resident Creating Document: ROSY LOU RESIDENT Medical Necessity Reason Pt with a Central, PICC or Fol: No Subjective Review of Systems History on arrival: This is a 39-year-old female with past medical history of hypertension, diabetes, presented to the ER with chief complain of shortness of breaths, congestion and productive cough. Patient endorses a four day history of worsening shortness for breath with associated productive cough, with sputum white in color. Shortness of breaths is present at rest. She also complained of nausea, vomiting, diarrhea since last week. She reported feeling nauseous early in the morning, followed by vomiting episode she had 1 episode of watery emesis every day since last 1 week, no hematemesis reported. Her diarrhea resolved 3 days back, complains of dowling colored stools now. She also complains of associated headache, dizziness since last 1 week. She also reports her blood sugar has been running high greater than 200s over the last week. She denies fever, chills, abdominal pain, pain or burning micturition. PMHx: Hypertension, diabetes mellitus PSHx: No significant history Family history: Noncontributory Social history: Denies smoking, alcohol, recreational drug use. Lives in house with family, full code. Home medication: Lantus, losartan Allergic history: Known allergies ROS: Constitutional: Denies weight loss, fever and chills. HEENT: Denies changes in vision and hearing. Respiratory: Shortness of breadth, congestion, productive cough Cardiovascular: Denies chest discomfort or palpitations GI: Nausea, vomiting, diarrhea. Denies abdominal pain : Denies dysuria and urinary frequency. Musculoskeletal: Denies myalgias and joint pain Skin: Denies rash and pruritus. Neurological: Denies dizziness, headache, vision or hearing problems 06/11/2025: No new complaints. Patient switched to oral antibiotic in context of restricting fluid in setting of heart failure. 06/12/2025: Patient was seen at bedside today. Complaining of headache, Tylenol q.4 PRN ordered. Influenza, COVID tested negative. Sputum and blood culture pending, echocardiogram pending. Objective vital signs Vital Sign Date Time Temp Pulse Resp B/P (MAP) Pulse Ox O2 Delivery O2 Flow Rate FiO2 06/12/25 09:14 152/92 06/12/25 09:00 97.6 82 16 97 97.6 06/12/25 08:15 Room Air 0.0 06/12/25 08:15 21 Total Intake and Output 06/11/25 06/11/25 06/12/25 15:00 23:00 07:00 Intake Total 400 ml 580 ml Balance 400 ml 580 ml medications Current Medications Medications Dose Ordered Sig/Anil Route Start Time Stop Time Status Last Admin Dose Admin Albuterol 2.5 mg Q6HPRN PRN NEB 06/11/25 04:15 Ceftriaxone Sodium 50 ml @ 100 mls/hr DAILY@09 IV 06/12/25 09:00 06/12/25 09:15 100 MLS/HR Azithromycin 250 ml @ 125 mls/hr DAILY IV 06/12/25 10:00 06/12/25 09:57 125 MLS/HR Hydralazine HCl 10 mg Q6HP PRN IV 06/11/25 04:15 Ipratropium [place] 0.5 mg Q6HPRN PRN NEB 06/11/25 04:15 Acetaminophen/ Hydrocodone Bitart 1 tab Q4HP PRN PO 06/11/25 04:15 06/11/25 22:32 1 TAB Temazepam 15 mg QHSP PRN PO 06/11/25 04:15 Ondansetron HCl 4 mg Q4HP PRN IV 06/11/25 04:15 Guaifenesin/ Dextromethorphan 10 ml Q4HP PRN PO 06/11/25 04:15 Dextrose 50 ml UD PRN IV 06/11/25 10:45 Furosemide 40 mg DAILY IV 06/12/25 10:00 06/12/25 09:14 40 MG Amlodipine Besylate 10 mg DAILY PO 06/12/25 10:00 06/12/25 09:13 10 MG Diagnostic Test (Pha) 1 strip ACHS 06/11/25 17:00 06/12/25 11:23 1 STRIP Insulin Human Regular HS SC 06/11/25 22:00 06/11/25 22:35 8 UNITS Insulin Human Regular AC SC 06/11/25 17:00 06/12/25 11:23 12 UNITS Dextrose 50 ml UD PRN IV 06/11/25 14:30 Levofloxacin 250 mg DAILY PO 06/12/25 10:00 Hold 06/12/25 09:14 250 MG Ergocalciferol 50,000 unit Q7D PO 06/11/25 16:00 06/11/25 18:05 50,000 UNIT Famotidine 20 mg DAILY@0700 PO 06/12/25 07:00 06/12/25 06:45 20 MG Insulin Glargine 20 units BID SC 06/12/25 22:00 Acetaminophen 650 mg Q4HP PRN PO 06/12/25 12:30 UNV Examination General: Patient alert and oriented in person, place and time. Patient following commands. HEENT: Normocephalic, atraumatic, moist mucous membranes Respiratory/pulmonary: Clear lungs bilaterally, vesicular murmurs present in almost all lung lobo, no associated crackles or wheezes. Cardiovascular: Normal heart sounds S1 and S2 with no associated murmurs Abdomen: Mild tenderness on palpation. No masses palpated, soft abdomen without guarding. Extremities: There is no peripheral edema present at the lower extremities. Peripheral Pulses: 3+ Radial (R). 3+ Radial (L). 3+ Dorsalis pedis (R). 3+ Dorsalis pedis(L) Skin: No rashes or pruritus, there is no sacral edema present at this time. Neurological: Intact cranial nerves with no focal neurologic deficits laboratory and microbiology Laboratory Tests 06/12/25 11:20 06/12/25 04:33 Test 06/12/25 04:33 Range/Units Serum Glucose 231 H 74-106 mg/dL Microbiology Date/Time Source Procedure Growth Status 06/11/25 00:23 Blood Blood Culture - Preliminary NO GROWTH AFTER 24 HOURS OF INCUBATION. Resulted Problem List/Assessment/Plan Problem List/Assessment/Plan Congestive heart failure, systolic versus diastolic, likely new diagnosis Echocardiogram pending BNP elevated Continue IV ceftriaxone and azithromycin Sepsis due to Community-acquired pneumonia due to Gram-negative, Gram-positive bacteria, improving Lactic acid WNL. Ordered blood culture, sputum culture Continue IV ceftriaxone, azithromycin Holding off IV fluids in context of possible heart failure Med treatment with albuterol, ipratropium given Insulin-dependent diabetes mellitus type 2, uncontrolled Simple hyperglycemia High serum osmolarity A1c more than 14 Started on sliding scale insulin, basal Lantus Discontinued methylprednisolone in context of persistently high hyperglycemia; no indications to continue Hypertensive emergency Acute on chronic renal failure stage 2 hemodynamically mediated (VMN) Normocytic, normochromic anemia, likely due to above NSTEMI type 2 likely due to above Avoid nephrotoxins Low salt diet, oral hydration Holding off IV fluids in context of possible heart failure Repeat [facility] Nephrology on board, recommended IV Lasix, strict I&O, renal diet Insomnia Ordered Tenazepam Obesity class 1 DIET: Consistent carb with sodium restriction diet DVT PROPHYLAXIS: SCD, patient ambulatory GI PROPHYLAXIS: Pepcid in context of low GFR CODE STATUS: Goals of care discussed with patient at bedside for more than 18 minutes. Full code DISPOSITION: Med/surge This medical document was created using an electronic medical record system with [id number] dictation system. Although this document has been carefully reviewed, there may still be some phonetic and typographical errors. These areas are purely typographical due to imperfections of the software programs, and do not reflect any compromise in the patient's medical care. Patient's status and plan discussed with the patient. Case discussed with Dr. Mcneal Plan discussed with: Patient, Other (Nurses) My Orders My Orders Orders - ROSY LOU Procedure Category Date Status Time Electrocardigram EKG 06/11/25 Logged 13:27 Respiratory Culture JANE 06/11/25 Logged W/ Gs 17:38 Sputum Induction RT 06/11/25 Logged 17:38 Famotidine Tablet PHA 06/12/25 In Process (Pepcid Tablet) 07:00 Sequential NATASHA 06/11/25 In Process Compression Device 17:38 Communication Order ORDERS 06/12/25 Transmitted 08:01 Initiate Vte NATASHA 06/12/25 In Process Prophylaxis 10:28 Insulin Lantus PHA 06/12/25 In Process (Glargine) (Lantus) 22:00 Acetaminophen Tablet PHA 06/12/25 Logged (Tylenol Tablet) 12:30 Basic Metabolic Panel LAB 06/13/25 Verified 04:00 Complete Blood Count LAB 06/13/25 Verified 04:00 Date of Service: Jun 12, 2025 Billing Provider: HARISH MCNEAL MD Common Visit Codes: [id number] INP/OBS CARE(HIGH) ROSY LOU Jun 12, 2025 12:30 HARISH MCNEAL MD Jun 16, 2025 20:38
--- NOTE | 2025-06-13 11:14 | DVHPN2 ---
Progress Note Date Seen: Jun 12, 2025 Medical Necessity Reason Pt with a Central, PICC or Fol: No Subjective Review of Systems: CVS:Abnormal Other Systems: Patient seen and examined by myself today on rounds, at the bedside Objective vital signs Vital Sign Date Time Temp Pulse Resp B/P (MAP) Pulse Ox O2 Delivery O2 Flow Rate FiO2 06/12/25 12:45 97.8 84 16 153/99 (117) 99 97.8 06/12/25 08:15 Room Air 0.0 06/12/25 08:15 21 Total Intake and Output 06/11/25 06/11/25 06/12/25 15:00 23:00 07:00 Intake Total 400 ml 580 ml Balance 400 ml 580 ml medications Current Medications Medications Dose Ordered Sig/Anil Route Start Time Stop Time Status Last Admin Dose Admin Albuterol 2.5 mg Q6HPRN PRN NEB 06/11/25 04:15 Ceftriaxone Sodium 50 ml @ 100 mls/hr DAILY@09 IV 06/12/25 09:00 06/12/25 09:15 100 MLS/HR Azithromycin 250 ml @ 125 mls/hr DAILY IV 06/12/25 10:00 06/12/25 09:57 125 MLS/HR Hydralazine HCl 10 mg Q6HP PRN IV 06/11/25 04:15 Ipratropium [place] 0.5 mg Q6HPRN PRN NEB 06/11/25 04:15 Acetaminophen/ Hydrocodone Bitart 1 tab Q4HP PRN PO 06/11/25 04:15 06/11/25 22:32 1 TAB Temazepam 15 mg QHSP PRN PO 06/11/25 04:15 Ondansetron HCl 4 mg Q4HP PRN IV 06/11/25 04:15 Guaifenesin/ Dextromethorphan 10 ml Q4HP PRN PO 06/11/25 04:15 Dextrose 50 ml UD PRN IV 06/11/25 10:45 Cancel Furosemide 40 mg DAILY IV 06/12/25 10:00 06/12/25 09:14 40 MG Amlodipine Besylate 10 mg DAILY PO 06/12/25 10:00 06/12/25 09:13 10 MG Diagnostic Test (Pha) 1 strip ACHS 06/11/25 17:00 06/12/25 11:23 1 STRIP Insulin Human Regular HS SC 06/11/25 22:00 06/11/25 22:35 8 UNITS Insulin Human Regular AC SC 06/11/25 17:00 06/12/25 11:23 12 UNITS Dextrose 50 ml UD PRN IV 06/11/25 14:30 Levofloxacin 250 mg DAILY PO 06/12/25 10:00 Hold 06/12/25 09:14 250 MG Ergocalciferol 50,000 unit Q7D PO 06/11/25 16:00 06/11/25 18:05 50,000 UNIT Famotidine 20 mg DAILY@0700 PO 06/12/25 07:00 06/12/25 06:45 20 MG Insulin Glargine 20 units BID SC 06/12/25 22:00 Acetaminophen 650 mg Q4HP PRN PO 06/12/25 12:30 06/12/25 12:40 650 MG Examination: LUNGS:Normal, CVS:Normal, MSK:Abnormal laboratory and microbiology Laboratory Tests 06/12/25 11:20 06/12/25 04:33 Test 06/12/25 04:33 Range/Units Serum Glucose 231 H 74-106 mg/dL Microbiology Date/Time Source Procedure Growth Status 06/11/25 00:23 Blood Blood Culture - Preliminary NO GROWTH AFTER 24 HOURS OF INCUBATION. Resulted Problem List/Assessment/Plan Problem List/Assessment/Plan NONI, on CKD, secondary to hemodynamic mediated Mild hyponatremia due to excess H2O Congestive heart failure exacerbation NSTEMI Diabetes type 2 with hyperglycemia Mild anemia Hypertension Chronic NSAIDs use Obesity Nephrotic syndrome likely due to diabetic nephropathy Vitamin-D deficiency Recommendations Kidney function slowly improving No urine output charted Strict I&Os Add lisinopril 20 mg p.o. q.day for blood pressure control Add ergocalciferol 04123 q.week Insulin sliding scale I discussed with the patient the avoid all NSAIDs use Cardiology consult We will continue to follow Patient seen and examined by myself. I discussed my plan of care with the patient, her and the primary nurse at the bedside Plan discussed with: Patient DEUCE VASQUEZ MD Jun 12, 2025 13:47
--- NOTE | 2025-06-13 11:17 | DVHINCON2 ---
Date Seen: Jun 12, 2025 Referring Physician MD Sammi Reason for Consultation NSTEMI/CHF History of Present Illness This is a 39-year-old female patient who presents to the emergency room with chief complaint of worsening shortness of breath for three days prior to emergency room arrival. She also mentions a cough that she has been experiencing for approximately one month. Other symptoms include a persistent headache for one week. Cardiology has been consulted at this time evaluate cardiac function and for elevated troponins. Initial twelve lead electrocardiogram seen in patient's hard chart reveals normal sinus rhythm with T-wave inversion seen in lateral leads. Initial troponin level of 55ng/L with a peak level at 157ng/L. Initial BNP level of 1428.23pg/mL. Significant past medical history includes hypertension and type 2 diabetes mellitus. Of note, the patient mentions significant familial cardiac history including her father with multiple myocardial infarctions who at age 56 from an ND. Past Medical History Past medical history reviewed. No other significant than mentioned above. Past Surgical History Family History: Diabetes mellitus MOTHER FATHER, FH: myocardial infarction FATHER, Hypertension MOTHER FATHER, Family History Family history reviewed. Social History Denies the use of tobacco, alcohol or illicit drugs. Allergies: Coded Allergies: NO KNOWN ALLERGIES (Unverified , 08/27/23) Home Meds No Active Prescriptions or Reported Meds Home Meds Home medications reviewed. Current Medications Current Medications Medications (Trade) Dose Ordered Sig/Anil Route PRN Reason Start Time Stop Time Status Last Admin Ceftriaxone Sodium 50 ml @ 100 mls/hr DAILY@09 IV 06/12/25 09:00 06/12/25 09:15 Azithromycin 250 ml @ 125 mls/hr DAILY IV 06/12/25 10:00 06/12/25 09:57 Furosemide (Lasix Injection) 40 mg DAILY IV 06/12/25 10:00 06/12/25 09:14 Amlodipine Besylate (Norvasc Tablet) 10 mg DAILY PO 06/12/25 10:00 06/12/25 09:13 Insulin Glargine (Lantus) 15 units BID SC 06/11/25 18:00 06/12/25 10:56 DC 06/12/25 09:32 Diagnostic Test (Pha) (Accu-Chek Comfort Curve T) 1 strip ACHS 06/11/25 17:00 06/12/25 11:23 Insulin Human Regular (InsuLIN R) HS SC 06/11/25 22:00 06/11/25 22:35 Insulin Human Regular (InsuLIN R) AC SC 06/11/25 17:00 06/12/25 11:23 Levofloxacin (Levaquin Tablet) 250 mg DAILY PO 06/12/25 10:00 Hold 06/12/25 09:14 Ergocalciferol (Vitamin D 50,000 Unit) 50,000 unit Q7D PO 06/11/25 16:00 06/11/25 18:05 Famotidine (Pepcid Tablet) 20 mg DAILY@0700 PO 06/12/25 07:00 06/12/25 06:45 Insulin Glargine (Lantus) 20 units BID SC 06/12/25 22:00 Acetaminophen (Tylenol Tablet) 650 mg Q4HP PRN PO PAIN SCALE 1-3 OR TEMP>100.4 06/12/25 12:30 06/12/25 12:40 Lisinopril (Zestril Tablet) 10 mg DAILY PO 06/12/25 13:45 Ferrous Sulfate 325 mg DAILY PO 06/13/25 10:00 UNV Review of Systems Constitutional: No symptom reported Ears, Nose, & Throat: No symptom reported Eyes: No symptom reported Neurological: Headache Pulmonary/Respiratory: Shortness of breath, cough Cardiovascular: No symptom reported Gastrointestinal: No symptom reported Genitourinary: No symptom reported Musculoskeletal: No symptom reported Skin: No symptom reported Psychiatric: No symptom reported Endocrine: No symptom reported Hematologic/Lymphatic: No symptom reported Vital Signs Vital Signs Date Time Temp Pulse Resp B/P (MAP) Pulse Ox O2 Delivery O2 Flow Rate FiO2 06/12/25 12:45 97.8 84 16 153/99 (117) 99 97.8 06/12/25 08:15 Room Air 0.0 06/12/25 08:15 21 Physical Exam General Appearance: Cooperative. Well-developed. Well-nourished. No acute distress. Pulmonary/Respiratory: Clear, bilateral breaths sounds. Cardiovascular/Chest: Regular rate and rhythm. Peripheral Pulses: 2+ Radial (R). 2+ Radial (L). 2+ Pedal (R). 2+ Pedal (L) Abdominal Exam: Normal bowel sounds. Ankle Exam: Negative ankle edema Lower extremities: Negative lower extremity edema Neuro/Mental Status: A/OX4, coherent. Thoughts/Psych: Normal thought pattern. Appropriate mood and affect. Good judgment and insight. Appearance: No acute distress. Skin Exam: Normal inspection. Normal color. Warm and dry. Labs/Diagnostic Data Labs Test 06/12/25 11:20 06/12/25 11:07 06/12/25 08:05 06/12/25 04:33 Range/Units Hemoglobin 10.8 L 12.2-16.2 g/dL Hematocrit 33.2 L 36.0-46.0 % POC Glucose 303 H 70-106 mg/dl Influenza Type A Antigen Negative Negative Influenza Type B Antigen Negative Negative SARS-CoV-2 Antigen (Rapid) Negative NEGATIVE White Blood Count 11.6 H 4.4-10.8 10^3/uL Red Blood Count 3.81 L 4.0-5.20 10^6/uL Mean Corpuscular Volume 81.8 80.0-100.0 fL Mean Corpuscular Hemoglobin 27.0 L 28.0-32.0 pg Mean Corpuscular Hemoglobin Concent 33.0 32.0-36.0 g/dL Red Cell Distribution Width 13.1 11.8-14.3 % Platelet Count 234 140-450 10^3/uL Mean Platelet Volume 11.4 H 6.9-10.8 fL Neutrophils (%) (Auto) 83.1 H 37.0-80.0 % Lymphocytes (%) (Auto) 11.9 10.0-50.0 % Monocytes (%) (Auto) 4.9 0.0-12.0 % Eosinophils (%) (Auto) 0.0 0.0-7.0 % Basophils (%) (Auto) 0.1 0.0-2.0 % Neutrophils # (Auto) 9.6 H 1.6-8.6 10 ^3/uL Lymphocytes # (Auto) 1.4 0.4-5.4 10 ^3/uL Monocytes # (Auto) 0.6 0-1.3 10 ^3/uL Eosinophils # (Auto) 0 0-0.8 10 ^3/uL Basophils # (Auto) 0 0-0.2 10 ^3/uL Nucleated Red Blood Cells 0.0 % Sodium Level 136 # 136-145 mmol/L Potassium Level 4.3 3.5-5.1 mmol/L Chloride Level 104 98-107 mmol/L Carbon Dioxide Level 22 20-31 mmol/L Anion Gap 10 5-15 Blood Urea Nitrogen 33 H 9-23 mg/dL Creatinine 2.08 H 0.550-1.02 mg/dL Glomerular Filtration Rate Calc 30 >90 mL/min BUN/Creatinine Ratio 15.9 10.0-20.0 Serum Glucose 231 H 74-106 mg/dL Calcium Level 8.6 L 8.7-10.4 mg/dL Test 06/11/25 14:57 06/11/25 12:08 06/11/25 02:18 06/11/25 00:23 Range/Units Serum Osmolality 317 H 278-298 mOsm/kg Troponin I High Sensitivity 134 *H </=34 ng/L Hemoglobin A1c > 14.0 H <5.7 % A1C Uric Acid 4.4 3.1-7.8 mg/dL Phosphorus Level 3.2 2.4-5.1 mg/dL Magnesium Level 2.1 1.6-2.6 mg/dL B-Type Natriuretic Peptide 1428.23 0-100 pg/mL Thyroid Stimulating Hormone (TSH) 1.74 0.55-4.78 uIU/mL Parathyroid Hormone (Intact) 216.0 H 18.4-80.1 pg/mL Urine Color Colorless Yellow Urine Clarity Clear Clear Urine pH 6.5 5.0-9.0 Urine Specific [place] 1.016 1.001-1.035 Urine Protein 2+ H Negative Urine Ketones Negative Negative Urine Blood 1+ H Negative /uL Urine Nitrite Negative Negative Urine Bilirubin Negative Negative Urine Urobilinogen Normal Negative mg/dL Urine Leukocyte Esterase Negative Negative /uL Urine RBC 4 0 - 4 /hpf Urine Microscopic WBC 2 0-5 /HPF Urine Squamous Epithelial Cells Few <5 /hpf Urine Bacteria None seen None Seen /hpf Urine Creatinine 28.27 L 30.0-125.0 mg/dL Urine Protein/Creatinine Ratio 9.67 Urine Sodium 81 40-220 mmol/L Urine Glucose 4+ H Normal mg/dL Urine Total Protein 273.3 H 1-14 mg/dL Lactic Acid Level 0.9 0.4-2.0 mmol/L Total Bilirubin 0.3 0.2-1.0 mg/dL Aspartate Amino Transferase (AST) 17 13-40 U/L Alanine Aminotransferase (ALT) 14 7-40 U/L Alkaline Phosphatase 162 H 46-116 U/L Total Protein 6.9 5.7-8.2 g/dL Albumin 3.6 3.2-4.8 g/dL Test 06/11/25 00:17 Range/Units Iron Level 47 L 50-170 ug/dL Total Iron Binding Capacity 295 250-425 ug/dL Percent Iron Saturation 15.9 15-50 % Ferritin 77.9 10-291 ng/mL Vitamin D 25-Hydroxy 10.7 L 30.0-100 ng/mL Microbiology Date/Time Source Procedure Growth Status 06/11/25 00:23 Blood Blood Culture - Preliminary NO GROWTH AFTER 24 HOURS OF INCUBATION. Resulted Assessment NSTEMI, rule out coronary artery disease Rule out structural heart disease Hypertensive urgency Dyslipidemia, newly diagnosed Pneumonia Sepsis Type 2 diabetes mellitus, uncontrolled (A1c >14%) Acute kidney injury Familial cardiac history Obesity Plan/Recommendation We will continue with the following plan/recommendations (Dr. Portillo): * Transthoracic echocardiogram to evaluate cardiac function * Strict intake/output and obtaining daily weights * Aggressive BP control as tolerated * Diuresis as tolerated * Single antiplatelet therapy and lipid-lowering agent * Cardiac surveillance * Antibiotics per primary care team * Nephrology consult and recommendations; avoid nephrotoxic agents Case discussed with . Given patient's clinical presentation, EKG changes, and multiple comorbidities, the patient may benefit from a coronary angiogram with left heart catheterization. At this time, creatinine level is elevated. We will recommend to continue with medical management for the time being and proceed with coronary angiogram with improved creatinine level. We will continue to follow closely. Thank you for allowing us to care for this patient. Please call with any questions or concerns. Critical care time spent: 44 minutes This medical document was created using an electronic medical record system with voice recognition software and computerized dictation system. Although this document has been carefully reviewed, there might still be some phonetic and typographical errors. Occasional wrong-word or ``sound-alike substitutions may have occurred due to the inherent limitations of voice recognition software. These areas are purely typographical due to imperfections of the software programs and do not reflect any compromise in the patient's medical care. Please read the chart carefully and recognize, using context, where these substitutions have occurred. Plan discussed with: Patient NYHA Physical activity limitations: NA Date of Service: Jun 12, 2025 Billing Provider: CHAVEZ,CASEY N LAST SAWYER Cardiology Common Codes: 10123-[id number] INP/OBS CARE (High) Cardiology Consultation Codes: [id number] CONSULT <45MIN CASEY CHAVEZ LAST SAWYER Jun 12, 2025 15:39
--- NOTE | 2025-06-13 11:44 | DVHPN2 ---
Consult Progress Note Subjective Other Systems: Patient denies any cardiac symptoms at time of assessment. The patient denies any cardiac symptoms at time of assessment. Patient is in normal sinus rhythm with depressed T-waves on test lab technician. Objective vital signs Vital Sign Date Time Temp Pulse Resp B/P (MAP) Pulse Ox O2 Delivery O2 Flow Rate FiO2 06/13/25 09:06 99 Room Air* 0 21 06/13/25 09:00 98.5 93 17 141/89 (106) 98.5 Total Intake and Output 06/12/25 06/12/25 06/13/25 15:00 23:00 07:00 Intake Total 300 ml 350 ml 300 ml Output Total 400 ml Balance 300 ml -50 ml 300 ml medications Current Medications Medications Dose Ordered Sig/Anil Route Start Time Stop Time Status Last Admin Dose Admin Albuterol 2.5 mg Q6HPRN PRN NEB 06/11/25 04:15 Ceftriaxone Sodium 50 ml @ 100 mls/hr DAILY@09 IV 06/12/25 09:00 06/12/25 09:15 100 MLS/HR Azithromycin 250 ml @ 125 mls/hr DAILY IV 06/12/25 10:00 06/12/25 09:57 125 MLS/HR Hydralazine HCl 10 mg Q6HP PRN IV 06/11/25 04:15 06/13/25 01:02 10 MG Ipratropium [place] 0.5 mg Q6HPRN PRN NEB 06/11/25 04:15 Acetaminophen/ Hydrocodone Bitart 1 tab Q4HP PRN PO 06/11/25 04:15 06/11/25 22:32 1 TAB Temazepam 15 mg QHSP PRN PO 06/11/25 04:15 Ondansetron HCl 4 mg Q4HP PRN IV 06/11/25 04:15 Guaifenesin/ Dextromethorphan 10 ml Q4HP PRN PO 06/11/25 04:15 Dextrose 50 ml UD PRN IV 06/11/25 10:45 Cancel Furosemide 40 mg DAILY IV 06/12/25 10:00 06/12/25 09:14 40 MG Amlodipine Besylate 10 mg DAILY PO 06/12/25 10:00 06/12/25 09:13 10 MG Diagnostic Test (Pha) 1 strip ACHS 06/11/25 17:00 06/13/25 07:13 1 STRIP Insulin Human Regular HS SC 06/11/25 22:00 06/12/25 22:09 3 UNITS Insulin Human Regular AC SC 06/11/25 17:00 06/13/25 07:12 2 UNITS Dextrose 50 ml UD PRN IV 06/11/25 14:30 Levofloxacin 250 mg DAILY PO 06/12/25 10:00 Hold 06/12/25 09:14 250 MG Ergocalciferol 50,000 unit Q7D PO 06/11/25 16:00 06/11/25 18:05 50,000 UNIT Famotidine 20 mg DAILY@0700 PO 06/12/25 07:00 06/13/25 06:44 20 MG Insulin Glargine 20 units BID SC 06/12/25 22:00 06/12/25 22:10 20 UNITS Acetaminophen 650 mg Q4HP PRN PO 06/12/25 12:30 06/12/25 21:58 650 MG Lisinopril 10 mg DAILY PO 06/12/25 13:45 06/12/25 16:10 10 MG Ferrous Sulfate 325 mg DAILY PO 06/13/25 10:00 Aspirin 81 mg DAILY PO 06/13/25 10:00 Atorvastatin Calcium 80 mg HS PO 06/12/25 22:00 06/12/25 21:58 80 MG Examination: GENERAL:Normal, LUNGS:Normal, CVS:Normal, NEURO:Normal laboratory and microbiology Laboratory Tests 06/13/25 06:26 Test 06/13/25 06:26 Range/Units Serum Glucose 145 H 74-106 mg/dL Problem List/Assessment/Plan Problem List/Assessment/Plan NSTEMI, rule out coronary artery disease Acute on chronic HFpEF, NYHA class II Hypertensive urgency Dyslipidemia, newly diagnosed Pneumonia Sepsis Type 2 diabetes mellitus, uncontrolled (A1c >14%) Acute kidney injury Obesity Plan/Recommendations (Dr. Portillo): * Transthoracic echocardiogram reveals an EF of 55% * Strict intake/output and obtaining daily weights * Aggressive BP control as tolerated * Diuresis as tolerated * Single antiplatelet therapy and lipid-lowering agent * Cardiac surveillance * Antibiotics per primary care team * Nephrology consult and recommendations; avoid nephrotoxic agents Case discussed with . Given patient's clinical presentation, EKG changes, and multiple comorbidities, the patient may benefit from a coronary angiogram with left heart catheterization. At this time, creatinine level is elevated. We will recommend to continue with medical management for the time being and proceed with coronary angiogram with improved creatinine level. We will continue to follow closely. Thank you for allowing us to care for this patient. Please call with any questions or concerns. This medical document was created using an electronic medical record system with voice recognition software and computerized dictation system. Although this document has been carefully reviewed, there might still be some phonetic and typographical errors. Occasional wrong-word or ``sound-alike substitutions may have occurred due to the inherent limitations of voice recognition software. These areas are purely typographical due to imperfections of the software programs and do not reflect any compromise in the patient's medical care. Please read the chart carefully and recognize, using context, where these substitutions have occurred. Plan discussed with: Patient Date of Service: Jun 13, 2025 Billing Provider: CASEY CHAVEZ Common Visit Codes: [id number] INP/OBS CARE(HIGH) CASEY CHAVEZ Jun 13, 2025 10:56
--- NOTE | 2025-06-13 12:31 | DVHPN2 ---
Progress Note Date Seen: Jun 13, 2025 Resident Creating Document: ESTRELLA RILEY RESDIENT Medical Necessity Reason Pt with a Central, PICC or Fol: No Subjective Review of Systems Examined at the bedside. Patient is feeling better since admission, but still complaining of headache. Objective vital signs Vital Sign Date Time Temp Pulse Resp B/P (MAP) Pulse Ox O2 Delivery O2 Flow Rate FiO2 06/13/25 10:51 98.5 06/13/25 10:44 141/89 06/13/25 09:06 99 Room Air* 0 21 06/13/25 09:00 93 17 Total Intake and Output 06/12/25 06/12/25 06/13/25 15:00 23:00 07:00 Intake Total 300 ml 350 ml 300 ml Output Total 400 ml Balance 300 ml -50 ml 300 ml medications Current Medications Medications Dose Ordered Sig/Anil Route Start Time Stop Time Status Last Admin Dose Admin Albuterol 2.5 mg Q6HPRN PRN NEB 06/11/25 04:15 Ceftriaxone Sodium 50 ml @ 100 mls/hr DAILY@09 IV 06/12/25 09:00 06/13/25 10:36 100 MLS/HR Azithromycin 250 ml @ 125 mls/hr DAILY IV 06/12/25 10:00 06/12/25 09:57 125 MLS/HR Hydralazine HCl 10 mg Q6HP PRN IV 06/11/25 04:15 06/13/25 01:02 10 MG Ipratropium [place] 0.5 mg Q6HPRN PRN NEB 06/11/25 04:15 Acetaminophen/ Hydrocodone Bitart 1 tab Q4HP PRN PO 06/11/25 04:15 06/11/25 22:32 1 TAB Temazepam 15 mg QHSP PRN PO 06/11/25 04:15 Ondansetron HCl 4 mg Q4HP PRN IV 06/11/25 04:15 Guaifenesin/ Dextromethorphan 10 ml Q4HP PRN PO 06/11/25 04:15 Dextrose 50 ml UD PRN IV 06/11/25 10:45 Cancel Furosemide 40 mg DAILY IV 06/12/25 10:00 06/13/25 10:41 40 MG Amlodipine Besylate 10 mg DAILY PO 06/12/25 10:00 06/13/25 10:43 10 MG Diagnostic Test (Pha) 1 strip ACHS 06/11/25 17:00 06/13/25 07:13 1 STRIP Insulin Human Regular HS SC 06/11/25 22:00 06/12/25 22:09 3 UNITS Insulin Human Regular AC SC 06/11/25 17:00 06/13/25 07:12 2 UNITS Dextrose 50 ml UD PRN IV 06/11/25 14:30 Levofloxacin 250 mg DAILY PO 06/12/25 10:00 Hold 06/12/25 09:14 250 MG Ergocalciferol 50,000 unit Q7D PO 06/11/25 16:00 06/11/25 18:05 50,000 UNIT Famotidine 20 mg DAILY@0700 PO 06/12/25 07:00 06/13/25 06:44 20 MG Insulin Glargine 20 units BID SC 06/12/25 22:00 06/13/25 10:47 20 UNITS Acetaminophen 650 mg Q4HP PRN PO 06/12/25 12:30 06/13/25 10:51 650 MG Lisinopril 10 mg DAILY PO 06/12/25 13:45 06/13/25 10:44 10 MG Ferrous Sulfate 325 mg DAILY PO 06/13/25 10:00 06/13/25 10:44 325 MG Aspirin 81 mg DAILY PO 06/13/25 10:00 06/13/25 10:44 81 MG Atorvastatin Calcium 80 mg HS PO 06/12/25 22:00 06/12/25 21:58 80 MG Examination General Appearance: Alert, Oriented X3, Cooperative, No acute distress HEENT: Atraumatic, PERRLA, EOMI, Mucous membrane moist/pink Respiratory: Bilateral crackles Cardiovascular: Regular rate, Normal S1, Normal S2, No murmurs, no chest wall tenderness Abdominal: Normal bowel sounds, Soft, No tenderness, No hepatospenomegaly, No masses Extremities: Bilateral grade 1 pedal edema Skin: No rashes, No breakdown, No significant lesion Neuro: Normal gait, Normal speech, Strength at 5/5 X4 ext, Normal tone, Sensation intact, Cranial nerves 3-12 NL, Reflexes 2+ Psych/Mental Status: Mental status NL, Mood NL laboratory and microbiology Laboratory Tests 06/13/25 06:26 Test 06/13/25 06:26 Range/Units Serum Glucose 145 H 74-106 mg/dL Microbiology Date/Time Source Procedure Growth Status 06/11/25 00:23 Blood Blood Culture - Preliminary NO GROWTH AFTER 48 HOURS OF INCUBATION. Resulted Labs and/or images reviewed: Labs reviewed by me, Image(s) reviewed by me Problem List/Assessment/Plan Problem List/Assessment/Plan This is a 39-year-old lady with past medical history of diabetes, hypertension, diabetic foot came to the hospital due to shortness of breaths and cough. Nephrology consulted for NONI. Assessment: NONI, on CKD, secondary to hemodynamic mediated Mild hyponatremia due to excess H2O Congestive heart failure exacerbation NSTEMI Diabetes type 2 with hyperglycemia Mild anemia Hypertensive Emergency Chronic NSAIDs use Obesity Nephrotic syndrome likely due to diabetic nephropathy Plan/recommendation: (Dr. Townsend) * IV Lasix 40 mg daily * Continue Amlodopine 10mg daily, start Carvidilol 6.25mg BID, DC lisinopril * IV fluid for LHC to minimize nephrotoxicity: 250 NS bolos before cath, then 80 ml NS per hr for 6hr after coronary angiogram, with 40mg Lasix extra after cath * Strict I&Os, avoid nephrotoxic drugs * Ergocalciferol 44525 q.week * Renal diet * Cardiology consult * We will follow up with the patient Thank you for giving us the opportunity to take care of your patient. Please call back if you have any questions/concerns. Plan discussed with: Patient, Other (RN) ESTRELLA RILEY Jun 13, 2025 12:31
[2025-06-13] MEDS: CARVEDILOL 3.125 MG TAB PO ONE (13:16)
[2025-06-13] MEDS: ONDANSETRON HCL 4 MG/2 ML VIAL IV PRN (13:54)
[2025-06-13 15:05] LABS: Chloride 103 mmol/L (98-107); Potassium 3.7 mmol/L (3.5-5.1); Sodium 138 mmol/L (136-145)
[2025-06-13 15:06] LABS: Anion Gap 9 (5-15); Carbon Dioxide 26 mmol/L (20-31)
[2025-06-13 15:11] LABS: BUN/Creatinine Ratio 14.3 (10.0-20.0)
[2025-06-13 15:12] LABS: Blood Urea Nitrogen 32 mg/dL (9-23); Calcium 8.3 mg/dL (8.7-10.4); Glucose 172 mg/dL (74-106)
--- NOTE | 2025-06-13 16:09 | DVHPNRES ---
Progress Note Date Seen: Jun 13, 2025 Resident Creating Document: ROSY LOU RESIDENT Medical Necessity Reason Pt with a Central, PICC or Fol: No Subjective Review of Systems History on arrival: This is a 39-year-old female with past medical history of hypertension, diabetes, presented to the ER with chief complain of shortness of breaths, congestion and productive cough. Patient endorses a four day history of worsening shortness for breath with associated productive cough, with sputum white in color. Shortness of breaths is present at rest. She also complained of nausea, vomiting, diarrhea since last week. She reported feeling nauseous early in the morning, followed by vomiting episode she had 1 episode of watery emesis every day since last 1 week, no hematemesis reported. Her diarrhea resolved 3 days back, complains of dowling colored stools now. She also complains of associated headache, dizziness since last 1 week. She also reports her blood sugar has been running high greater than 200s over the last week. She denies fever, chills, abdominal pain, pain or burning micturition. PMHx: Hypertension, diabetes mellitus PSHx: No significant history Family history: Noncontributory Social history: Denies smoking, alcohol, recreational drug use. Lives in house with family, full code. Home medication: Lantus, losartan Allergic history: Known allergies ROS: Constitutional: Denies weight loss, fever and chills. HEENT: Denies changes in vision and hearing. Respiratory: Shortness of breadth, congestion, productive cough Cardiovascular: Denies chest discomfort or palpitations GI: Nausea, vomiting, diarrhea. Denies abdominal pain : Denies dysuria and urinary frequency. Musculoskeletal: Denies myalgias and joint pain Skin: Denies rash and pruritus. Neurological: Denies dizziness, headache, vision or hearing problems 06/11/2025: No new complaints. Patient switched to oral antibiotic in context of restricting fluid in setting of heart failure. 06/12/2025: Complaining of headache, Tylenol q.4 PRN ordered. Influenza, COVID tested negative. Sputum and blood culture pending, echocardiogram pending. 06/13/2025: Patient was seen at bedside today. Patient continues to complain of headache, CT negative for acute abnormality. Cardiology on board, cardiac angiogram planned. Objective vital signs Vital Sign Date Time Temp Pulse Resp B/P (MAP) Pulse Ox O2 Delivery O2 Flow Rate FiO2 06/13/25 13:16 86 140/84 06/13/25 13:00 98.4 16 97 98.4 06/13/25 09:06 Room Air* 0 21 Total Intake and Output 06/12/25 06/12/25 06/13/25 15:00 23:00 07:00 Intake Total 300 ml 350 ml 300 ml Output Total 400 ml Balance 300 ml -50 ml 300 ml medications Current Medications Medications Dose Ordered Sig/Anil Route Start Time Stop Time Status Last Admin Dose Admin Albuterol 2.5 mg Q6HPRN PRN NEB 06/11/25 04:15 Ceftriaxone Sodium 50 ml @ 100 mls/hr DAILY@09 IV 06/12/25 09:00 06/13/25 10:36 100 MLS/HR Azithromycin 250 ml @ 125 mls/hr DAILY IV 06/12/25 10:00 06/13/25 13:16 125 MLS/HR Hydralazine HCl 10 mg Q6HP PRN IV 06/11/25 04:15 06/13/25 01:02 10 MG Ipratropium [place] 0.5 mg Q6HPRN PRN NEB 06/11/25 04:15 Acetaminophen/ Hydrocodone Bitart 1 tab Q4HP PRN PO 06/11/25 04:15 06/11/25 22:32 1 TAB Temazepam 15 mg QHSP PRN PO 06/11/25 04:15 Ondansetron HCl 4 mg Q4HP PRN IV 06/11/25 04:15 06/13/25 13:54 4 MG Guaifenesin/ Dextromethorphan 10 ml Q4HP PRN PO 06/11/25 04:15 Dextrose 50 ml UD PRN IV 06/11/25 10:45 Cancel Furosemide 40 mg DAILY IV 06/12/25 10:00 06/13/25 10:41 40 MG Amlodipine Besylate 10 mg DAILY PO 06/12/25 10:00 06/13/25 10:43 10 MG Diagnostic Test (Pha) 1 strip ACHS 06/11/25 17:00 06/13/25 07:13 1 STRIP Insulin Human Regular HS SC 06/11/25 22:00 06/12/25 22:09 3 UNITS Insulin Human Regular AC SC 06/11/25 17:00 06/13/25 14:09 2 UNITS Dextrose 50 ml UD PRN IV 06/11/25 14:30 Levofloxacin 250 mg DAILY PO 06/12/25 10:00 Hold 06/12/25 09:14 250 MG Ergocalciferol 50,000 unit Q7D PO 06/11/25 16:00 06/11/25 18:05 50,000 UNIT Famotidine 20 mg DAILY@0700 PO 06/12/25 07:00 06/13/25 06:44 20 MG Insulin Glargine 20 units BID SC 06/12/25 22:00 06/13/25 10:47 20 UNITS Acetaminophen 650 mg Q4HP PRN PO 06/12/25 12:30 06/13/25 10:51 650 MG Lisinopril 10 mg DAILY PO 06/12/25 13:45 06/13/25 10:44 10 MG Ferrous Sulfate 325 mg DAILY PO 06/13/25 10:00 06/13/25 10:44 325 MG Aspirin 81 mg DAILY PO 06/13/25 10:00 06/13/25 10:44 81 MG Atorvastatin Calcium 80 mg HS PO 06/12/25 22:00 06/12/25 21:58 80 MG Carvedilol 3.125 mg Q12HR PO 06/13/25 22:00 Acetaminophen 650 mg Q6HP PO 06/13/25 18:00 Examination General: Patient alert and oriented in person, place and time. Patient following commands. HEENT: Normocephalic, atraumatic, moist mucous membranes Respiratory/pulmonary: Clear lungs bilaterally, vesicular murmurs present in almost all lung lobo, no associated crackles or wheezes. Cardiovascular: Normal heart sounds S1 and S2 with no associated murmurs Abdomen: Soft abdomen. No masses palpated, soft abdomen without guarding. Extremities: There is no peripheral edema present at the lower extremities. Peripheral Pulses: 3+ Radial (R). 3+ Radial (L). 3+ Dorsalis pedis (R). 3+ Dorsalis pedis(L) Skin: No rashes or pruritus, there is no sacral edema present at this time. Neurological: Dizziness reproducible on ocular movements. Meningeal signs negative. Normal motor sensory strength in bilateral lower extremities and upper extremities. Intact cranial nerves with no focal neurologic deficits laboratory and microbiology Laboratory Tests 06/13/25 14:32 06/13/25 06:26 Test 06/13/25 14:32 Range/Units Serum Glucose 172 H 74-106 mg/dL Microbiology Date/Time Source Procedure Growth Status 06/11/25 00:23 Blood Blood Culture - Preliminary NO GROWTH AFTER 48 HOURS OF INCUBATION. Resulted Problem List/Assessment/Plan Problem List/Assessment/Plan Congestive heart failure, systolic versus diastolic, likely new diagnosis Echocardiogram pending BNP elevated Continue IV ceftriaxone and azithromycin Sepsis due to Community-acquired pneumonia due to Gram-negative, Gram-positive bacteria, improving Lactic acid WNL. Ordered blood culture, sputum culture Continue IV ceftriaxone, azithromycin Holding off IV fluids in context of possible heart failure Med treatment with albuterol, ipratropium given Insulin-dependent diabetes mellitus type 2, uncontrolled Simple hyperglycemia High serum osmolarity A1c more than 14 Started on sliding scale insulin, basal Lantus Discontinued methylprednisolone in context of persistently high hyperglycemia; no indications to continue Hypertensive emergency Acute on chronic renal failure stage 2 hemodynamically mediated (VMN) Normocytic, normochromic anemia, likely due to above NSTEMI type 2 likely due to above Avoid nephrotoxins Low salt diet, oral hydration Holding off IV fluids in context of possible heart failure Repeat BMP Nephrology on board, recommended IV Lasix, strict I&O, renal diet Cardiology on board, cardiac angiogram planned. Patient on telemetry monitoring Patient is started on carvedilol, continue amlodipine daily; lisinopril discontinued. Insomnia Ordered Tenazepam Obesity class 1 Hemorrhagic stroke, ruled out CT negative for acute abnormality. DIET: Consistent carb with sodium restriction diet DVT PROPHYLAXIS: SCD, patient ambulatory GI PROPHYLAXIS: Pepcid in context of low GFR CODE STATUS: Goals of care discussed with patient at bedside for more than 18 minutes. Full code DISPOSITION: Telemetry This medical document was created using an electronic medical record system with [employer] direct computerized dictation system. Although this document has been carefully reviewed, there may still be some phonetic and typographical errors. These areas are purely typographical due to imperfections of the software programs, and do not reflect any compromise in the patient's medical care. Patient's status and plan discussed with the patient. Case discussed with Dr. Mcneal Plan discussed with: Patient, Other (Nurses) My Orders My Orders Orders - ROSY LOU RESIDENT Procedure Category Date Status Time Respiratory Culture JANE 06/13/25 In Process W/ Gs 10:12 Sputum Induction RT 06/13/25 Logged 10:12 Date of Service: Jun 13, 2025 Billing Provider: HARISH MCNEAL MD Common Visit Codes: [id number] INP/OBS CARE(HIGH) ROSY LOU RESIDENT Jun 13, 2025 16:09 HARISH MCNEAL MD Jun 16, 2025 20:39
[2025-06-13] MEDS: ACETAMINOPHEN 325 MG TAB PO SCH (17:01)
[2025-06-13] MEDS: CARVEDILOL 3.125 MG TAB PO SCH (21:56)
[2025-06-13] MEDS: TEMAZEPAM 15 MG CAP PO PRN (21:58)
[2025-06-14] VITALS (10 sets, daily range): BP systolic 119–136; BP diastolic 76–88; PULSE 67–96; RESP 16–18; TEMP 97.6–98.1; O2SAT 93–100
[2025-06-14 05:57] LABS: Hematocrit 37.7 % (36.0-46.0); Hemoglobin 12.4 g/dL (12.2-16.2); Mean Corpuscular Hemoglobin 27.0 pg (28.0-32.0); Mean Corpuscular Volume 82.1 fL (80.0-100.0); Nucleated Red Blood Cells % 0.0 %
[2025-06-14 06:06] LABS: Anion Gap 10 (5-15); Carbon Dioxide 29 mmol/L (20-31); Chloride 103 mmol/L (98-107); Potassium 3.6 mmol/L (3.5-5.1); Sodium 142 mmol/L (136-145)
[2025-06-14 06:08] LABS: Calcium 9.1 mg/dL (8.7-10.4)
[2025-06-14 06:12] LABS: BUN/Creatinine Ratio 14.4 (10.0-20.0); Glucose 105 mg/dL (74-106)
[2025-06-14 06:13] LABS: Blood Urea Nitrogen 32 mg/dL (9-23)
[2025-06-14] MEDS: SODIUM CHLORIDE 0.9% 1,000 ML IV SCH (10:30)
--- NOTE | 2025-06-14 12:06 | DVHPN2 ---
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 Patient is complaining of a headache at time of assessment. Objective vital signs Vital Sign Date Time Temp Pulse Resp B/P (MAP) Pulse Ox O2 Delivery O2 Flow Rate FiO2 06/14/25 10:02 98 Room Air* 0 21 06/14/25 09:08 158/95 06/14/25 08:59 98.1 67 18 98.1 Total Intake and Output 06/13/25 06/13/25 06/14/25 15:00 23:00 07:00 Intake Total 400 ml 800 ml Output Total 1400 ml Balance -1000 ml 800 ml medications Current Medications Medications Dose Ordered Sig/Anil Route Start Time Stop Time Status Last Admin Dose Admin Albuterol 2.5 mg Q6HPRN PRN NEB 06/11/25 04:15 Ceftriaxone Sodium 50 ml @ 100 mls/hr DAILY@09 IV 06/12/25 09:00 06/14/25 08:56 100 MLS/HR Azithromycin 250 ml @ 125 mls/hr DAILY IV 06/12/25 10:00 06/13/25 13:16 125 MLS/HR Hydralazine HCl 10 mg Q6HP PRN IV 06/11/25 04:15 06/13/25 01:02 10 MG Ipratropium [place] 0.5 mg Q6HPRN PRN NEB 06/11/25 04:15 Acetaminophen/ Hydrocodone Bitart 1 tab Q4HP PRN PO 06/11/25 04:15 06/14/25 02:02 1 TAB Temazepam 15 mg QHSP PRN PO 06/11/25 04:15 06/13/25 21:58 15 MG Ondansetron HCl 4 mg Q4HP PRN IV 06/11/25 04:15 06/13/25 13:54 4 MG Guaifenesin/ Dextromethorphan 10 ml Q4HP PRN PO 06/11/25 04:15 Dextrose 50 ml UD PRN IV 06/11/25 10:45 Cancel Furosemide 40 mg DAILY IV 06/12/25 10:00 06/14/25 09:08 40 MG Amlodipine Besylate 10 mg DAILY PO 06/12/25 10:00 06/14/25 08:58 10 MG Diagnostic Test (Pha) 1 strip ACHS 06/11/25 17:00 06/14/25 05:28 1 STRIP Insulin Human Regular HS SC 06/11/25 22:00 06/13/25 22:03 2 UNITS Insulin Human Regular AC SC 06/11/25 17:00 06/13/25 17:46 2 UNITS Dextrose 50 ml UD PRN IV 06/11/25 14:30 Levofloxacin 250 mg DAILY PO 06/12/25 10:00 Hold 06/12/25 09:14 250 MG Ergocalciferol 50,000 unit Q7D PO 06/11/25 16:00 06/11/25 18:05 50,000 UNIT Famotidine 20 mg DAILY@0700 PO 06/12/25 07:00 06/14/25 05:26 20 MG Insulin Glargine 20 units BID SC 06/12/25 22:00 06/14/25 09:00 20 UNITS Acetaminophen 650 mg Q4HP PRN PO 06/12/25 12:30 06/13/25 10:51 650 MG Ferrous Sulfate 325 mg DAILY PO 06/13/25 10:00 06/14/25 08:58 325 MG Aspirin 81 mg DAILY PO 06/13/25 10:00 06/14/25 08:58 81 MG Atorvastatin Calcium 80 mg HS PO 06/12/25 22:00 06/13/25 21:57 80 MG Carvedilol 3.125 mg Q12HR PO 06/13/25 22:00 06/14/25 08:57 3.125 MG Acetaminophen 650 mg Q6HP PO 06/13/25 18:00 06/14/25 05:26 650 MG Sodium Chloride 1,000 ml @ 60 mls/hr [id number] IV 06/14/25 10:30 Examination: GENERAL:Normal, LUNGS:Normal, CVS:Normal, NEURO:Normal laboratory and microbiology Laboratory Tests 06/14/25 05:29 Test 06/14/25 05:29 Range/Units Serum Glucose 105 74-106 mg/dL Problem List/Assessment/Plan Problem List/Assessment/Plan NSTEMI, rule out coronary artery disease Acute on chronic HFpEF, NYHA class II Hypertensive urgency Dyslipidemia, newly diagnosed Pneumonia Sepsis Type 2 diabetes mellitus, uncontrolled (A1c >14%) Acute kidney injury Familial cardiac history Obesity Plan/Recommendations (Dr. Portillo): * Transthoracic echocardiogram reveals an EF of 55% * Strict intake/output and obtaining daily weights, low sodium diet * Aggressive BP control as tolerated * Switched amlodipine to nifedipine for tighter BP control and up-titrate dose as tolerated * Diuresis as tolerated * Single antiplatelet therapy and lipid-lowering agent * Cardiac surveillance * Antibiotics per primary care team * Nephrology consult and recommendations; avoid nephrotoxic agents * Risk factor modifications, counseled * Dietary and lifestyle changes Case discussed with . Given patient's clinical presentation, EKG changes, and multiple comorbidities, the patient may benefit from a coronary angiogram with left heart catheterization. At this time, creatinine level is elevated. We will recommend to continue with medical management for the time being and proceed with coronary angiogram with improved creatinine level. We will initiate gentle IV hydration and closely monitor creatinine level. We will continue to follow closely. Thank you for allowing us to care for this patient. Please call with any questions or concerns. This medical document was created using an electronic medical record system with voice recognition software and computerized dictation system. Although this document has been carefully reviewed, there might still be some phonetic and typographical errors. Occasional wrong-word or ``sound-alike substitutions may have occurred due to the inherent limitations of voice recognition software. These areas are purely typographical due to imperfections of the software programs and do not reflect any compromise in the patient's medical care. Please read the chart carefully and recognize, using context, where these substitutions have occurred. Plan discussed with: Patient, Spouse Date of Service: Jun 14, 2025 Billing Provider: CASEY CHAVEZ Common Visit Codes: [id number] INP/OBS CARE(HIGH) CASEY CHAVEZ Jun 14, 2025 12:06
--- NOTE | 2025-06-14 14:13 | DVHPNRES ---
Progress Note Date Seen: Jun 14, 2025 Resident Creating Document: ROSY LOU RESIDENT Medical Necessity Reason Pt with a Central, PICC or Fol: No Subjective Review of Systems History on arrival: This is a 39-year-old female with past medical history of hypertension, diabetes, presented to the ER with chief complain of shortness of breaths, congestion and productive cough. Patient endorses a four day history of worsening shortness for breath with associated productive cough, with sputum white in color. Shortness of breaths is present at rest. She also complained of nausea, vomiting, diarrhea since last week. She reported feeling nauseous early in the morning, followed by vomiting episode she had 1 episode of watery emesis every day since last 1 week, no hematemesis reported. Her diarrhea resolved 3 days back, complains of dowling colored stools now. She also complains of associated headache, dizziness since last 1 week. She also reports her blood sugar has been running high greater than 200s over the last week. She denies fever, chills, abdominal pain, pain or burning micturition. PMHx: Hypertension, diabetes mellitus PSHx: No significant history Family history: Noncontributory Social history: Denies smoking, alcohol, recreational drug use. Lives in house with family, full code. Home medication: Lantus, losartan Allergic history: Known allergies ROS: Constitutional: Denies weight loss, fever and chills. HEENT: Denies changes in vision and hearing. Respiratory: Shortness of breadth, congestion, productive cough Cardiovascular: Denies chest discomfort or palpitations GI: Nausea, vomiting, diarrhea. Denies abdominal pain : Denies dysuria and urinary frequency. Musculoskeletal: Denies myalgias and joint pain Skin: Denies rash and pruritus. Neurological: Denies dizziness, headache, vision or hearing problems 06/11/2025: No new complaints. Patient switched to oral antibiotic in context of restricting fluid in setting of heart failure. 06/12/2025: Complaining of headache, Tylenol q.4 PRN ordered. Influenza, COVID tested negative. Sputum and blood culture pending, echocardiogram pending. 06/13/2025: Patient continues to complain of headache, CT negative for acute abnormality. Cardiology on board, cardiac angiogram planned. 08/24/2024: Patient was seen at bedside today. No new complaints. Cardiology on board, pending coronary angiogram. Objective vital signs Vital Sign Date Time Temp Pulse Resp B/P (MAP) Pulse Ox O2 Delivery O2 Flow Rate FiO2 06/14/25 13:06 96.6 06/14/25 10:02 98 Room Air* 0 21 06/14/25 09:57 82 150/96 06/14/25 08:59 18 Total Intake and Output 06/13/25 06/13/25 06/14/25 15:00 23:00 07:00 Intake Total 400 ml 800 ml Output Total 1400 ml Balance -1000 ml 800 ml medications Current Medications Medications Dose Ordered Sig/Anil Route Start Time Stop Time Status Last Admin Dose Admin Albuterol 2.5 mg Q6HPRN PRN NEB 06/11/25 04:15 Ceftriaxone Sodium 50 ml @ 100 mls/hr DAILY@09 IV 06/12/25 09:00 06/14/25 08:56 100 MLS/HR Azithromycin 250 ml @ 125 mls/hr DAILY IV 06/12/25 10:00 06/13/25 13:16 125 MLS/HR Hydralazine HCl 10 mg Q6HP PRN IV 06/11/25 04:15 06/13/25 01:02 10 MG Ipratropium [place] 0.5 mg Q6HPRN PRN NEB 06/11/25 04:15 Acetaminophen/ Hydrocodone Bitart 1 tab Q4HP PRN PO 06/11/25 04:15 06/14/25 02:02 1 TAB Temazepam 15 mg QHSP PRN PO 06/11/25 04:15 06/13/25 21:58 15 MG Ondansetron HCl 4 mg Q4HP PRN IV 06/11/25 04:15 06/13/25 13:54 4 MG Guaifenesin/ Dextromethorphan 10 ml Q4HP PRN PO 06/11/25 04:15 Dextrose 50 ml UD PRN IV 06/11/25 10:45 Cancel Furosemide 40 mg DAILY IV 06/12/25 10:00 06/14/25 09:08 40 MG Diagnostic Test (Pha) 1 strip ACHS 06/11/25 17:00 06/14/25 05:28 1 STRIP Insulin Human Regular HS SC 06/11/25 22:00 06/13/25 22:03 2 UNITS Insulin Human Regular AC SC 06/11/25 17:00 06/14/25 13:33 6 UNITS Dextrose 50 ml UD PRN IV 06/11/25 14:30 Levofloxacin 250 mg DAILY PO 06/12/25 10:00 Hold 06/12/25 09:14 250 MG Ergocalciferol 50,000 unit Q7D PO 06/11/25 16:00 06/11/25 18:05 50,000 UNIT Famotidine 20 mg DAILY@0700 PO 06/12/25 07:00 06/14/25 05:26 20 MG Insulin Glargine 20 units BID SC 06/12/25 22:00 06/14/25 09:00 20 UNITS Acetaminophen 650 mg Q4HP PRN PO 06/12/25 12:30 06/13/25 10:51 650 MG Ferrous Sulfate 325 mg DAILY PO 06/13/25 10:00 06/14/25 08:58 325 MG Aspirin 81 mg DAILY PO 06/13/25 10:00 06/14/25 08:58 81 MG Atorvastatin Calcium 80 mg HS PO 06/12/25 22:00 06/13/25 21:57 80 MG Carvedilol 3.125 mg Q12HR PO 06/13/25 22:00 06/14/25 08:57 3.125 MG Acetaminophen 650 mg Q6HP PO 06/13/25 18:00 06/14/25 13:06 650 MG Sodium Chloride 1,000 ml @ 60 mls/hr [id number] IV 06/14/25 10:30 Nifedipine 60 mg DAILY PO 06/15/25 10:00 Examination General: Patient alert and oriented in person, place and time. Patient following commands. HEENT: Normocephalic, atraumatic, moist mucous membranes Respiratory/pulmonary: Clear lungs bilaterally, vesicular murmurs present in almost all lung lobo, no associated crackles or wheezes. Cardiovascular: Normal heart sounds S1 and S2 with no associated murmurs Abdomen: Soft abdomen. No masses palpated, soft abdomen without guarding. Extremities: There is no peripheral edema present at the lower extremities. Peripheral Pulses: 3+ Radial (R). 3+ Radial (L). 3+ Dorsalis pedis (R). 3+ Dorsalis pedis(L) Skin: No rashes or pruritus, there is no sacral edema present at this time. Neurological: Intact cranial nerves no focal neurological deficits. laboratory and microbiology Laboratory Tests 06/14/25 05:29 Test 06/14/25 05:29 Range/Units Serum Glucose 105 74-106 mg/dL Microbiology Date/Time Source Procedure Growth Status 06/13/25 13:38 Sputum Gram Stain Pending Resulted 06/13/25 13:38 Sputum Respiratory Culture - Preliminary Resulted 06/11/25 00:23 Blood Blood Culture - Preliminary NO GROWTH AFTER 72 HOURS OF INCUBATION. Resulted Problem List/Assessment/Plan Problem List/Assessment/Plan Sepsis due to Community-acquired pneumonia due to Gram-negative, Gram-positive bacteria, improving Lactic acid WNL. Ordered blood culture, sputum culture Continue IV ceftriaxone, azithromycin Holding off IV fluids in context of possible heart failure Med treatment with albuterol, ipratropium given Congestive heart failure, systolic versus diastolic, ruled out Echocardiogram shows LVEF 55% BNP elevated likely due to kidney disease Cardiology on board. Recommended to continue with medical management for the time being and proceed with coronary angiogram with improved creatinine level. Initiated gentle IV hydration and closely monitor creatinine level. Insulin-dependent diabetes mellitus type 2, uncontrolled Simple hyperglycemia High serum osmolarity A1c more than 14 Started on sliding scale insulin, basal Lantus Discontinued methylprednisolone in context of persistently high hyperglycemia; no indications to continue Hypertensive emergency, resolving Acute on chronic renal failure stage 2 hemodynamically mediated (VMN) Nephrotic syndrome, likely due to diabetic nephropathy Normocytic, normochromic anemia, likely due to above NSTEMI type 2 likely due to above Avoid nephrotoxins Low salt diet, oral hydration Holding off IV fluids in context of possible heart failure Repeat BMP Nephrology on board, recommended IV Lasix, strict I&O, renal diet Cardiology on board, cardiac angiogram planned. Patient on telemetry monitoring Continue carvedilol, continue amlodipine daily; lisinopril discontinued. Insomnia Continue Tenazepam Obesity class 1 Hemorrhagic stroke, ruled out CT negative for acute abnormality. DIET: Consistent carb with sodium restriction diet DVT PROPHYLAXIS: SCD, patient ambulatory GI PROPHYLAXIS: Pepcid in context of low GFR CODE STATUS: Goals of care discussed with patient at bedside for more than 18 minutes. Full code DISPOSITION: Telemetry This medical document was created using an electronic medical record system with [employer] direct computerized dictation system. Although this document has been carefully reviewed, there may still be some phonetic and typographical errors. These areas are purely typographical due to imperfections of the software programs, and do not reflect any compromise in the patient's medical care. Patient's status and plan discussed with the patient. Case discussed with Dr. Mcneal Plan discussed with: Patient, Other (Nurses) Date of Service: Jun 14, 2025 Billing Provider: HARISH MCNEAL MD Common Visit Codes: [id number] INP/OBS CARE(HIGH) ROSY LOU RESIDENT Jun 14, 2025 14:13 HARISH MCNEAL MD Jun 16, 2025 20:39
--- NOTE | 2025-06-14 15:31 | DVHPN2 ---
Progress Note Date Seen: Jun 14, 2025 Medical Necessity Reason Pt with a Central, PICC or Fol: No Subjective Patient reports: Feels better Objective vital signs Vital Sign Date Time Temp Pulse Resp B/P (MAP) Pulse Ox O2 Delivery O2 Flow Rate FiO2 06/14/25 13:06 96.6 06/14/25 13:00 79 18 124/83 (97) 93 06/14/25 10:02 Room Air* 0 21 Total Intake and Output 06/13/25 06/13/25 06/14/25 15:00 23:00 07:00 Intake Total 400 ml 800 ml Output Total 1400 ml Balance -1000 ml 800 ml medications Current Medications Medications Dose Ordered Sig/Anil Route Start Time Stop Time Status Last Admin Dose Admin Albuterol 2.5 mg Q6HPRN PRN NEB 06/11/25 04:15 Ceftriaxone Sodium 50 ml @ 100 mls/hr DAILY@09 IV 06/12/25 09:00 06/14/25 08:56 100 MLS/HR Azithromycin 250 ml @ 125 mls/hr DAILY IV 06/12/25 10:00 06/13/25 13:16 125 MLS/HR Hydralazine HCl 10 mg Q6HP PRN IV 06/11/25 04:15 06/13/25 01:02 10 MG Ipratropium [place] 0.5 mg Q6HPRN PRN NEB 06/11/25 04:15 Acetaminophen/ Hydrocodone Bitart 1 tab Q4HP PRN PO 06/11/25 04:15 06/14/25 02:02 1 TAB Temazepam 15 mg QHSP PRN PO 06/11/25 04:15 06/13/25 21:58 15 MG Ondansetron HCl 4 mg Q4HP PRN IV 06/11/25 04:15 06/13/25 13:54 4 MG Guaifenesin/ Dextromethorphan 10 ml Q4HP PRN PO 06/11/25 04:15 Dextrose 50 ml UD PRN IV 06/11/25 10:45 Cancel Furosemide 40 mg DAILY IV 06/12/25 10:00 06/14/25 09:08 40 MG Diagnostic Test (Pha) 1 strip ACHS 06/11/25 17:00 06/14/25 05:28 1 STRIP Insulin Human Regular HS SC 06/11/25 22:00 06/13/25 22:03 2 UNITS Insulin Human Regular AC SC 06/11/25 17:00 06/14/25 13:33 6 UNITS Dextrose 50 ml UD PRN IV 06/11/25 14:30 Levofloxacin 250 mg DAILY PO 06/12/25 10:00 06/12/25 09:14 250 MG Ergocalciferol 50,000 unit Q7D PO 06/11/25 16:00 06/11/25 18:05 50,000 UNIT Famotidine 20 mg DAILY@0700 PO 06/12/25 07:00 06/14/25 05:26 20 MG Insulin Glargine 20 units BID SC 06/12/25 22:00 06/14/25 09:00 20 UNITS Acetaminophen 650 mg Q4HP PRN PO 06/12/25 12:30 06/13/25 10:51 650 MG Ferrous Sulfate 325 mg DAILY PO 06/13/25 10:00 06/14/25 08:58 325 MG Aspirin 81 mg DAILY PO 06/13/25 10:00 06/14/25 08:58 81 MG Atorvastatin Calcium 80 mg HS PO 06/12/25 22:00 06/13/25 21:57 80 MG Carvedilol 3.125 mg Q12HR PO 06/13/25 22:00 06/14/25 08:57 3.125 MG Acetaminophen 650 mg Q6HP PO 06/13/25 18:00 06/14/25 13:06 650 MG Sodium Chloride 1,000 ml @ 60 mls/hr [id number] IV 06/14/25 10:30 Nifedipine 60 mg DAILY PO 06/15/25 10:00 Examination: GENERAL:Normal, CVS:Normal, ABDOMEN:Normal, SKIN:Normal laboratory and microbiology Laboratory Tests 06/14/25 05:29 Test 06/14/25 05:29 Range/Units Serum Glucose 105 74-106 mg/dL Microbiology Date/Time Source Procedure Growth Status 06/13/25 13:38 Sputum Gram Stain Pending Resulted 06/13/25 13:38 Sputum Respiratory Culture - Preliminary Resulted 06/11/25 00:23 Blood Blood Culture - Preliminary NO GROWTH AFTER 72 HOURS OF INCUBATION. Resulted Problem List/Assessment/Plan Problem List/Assessment/Plan Acute kidney injury hemodynamically mediated ; multifactorial diabetic kidney disease and NSTEMI - blood pressure control diuretic therapy, low-salt diet -elevated risk for contrast induced nephropathy and may require dialysis EUN inhibitor currently on hold, prior to cardiac catheterization patient will require IV fluid normal saline 250 cc bolus 1 hour prior to contrast and a rate of 100 cc/hour for 6 hours post cath with Lasix 60 mg IV push. Chronic kidney disease last known stage II in 2023 Evidence of the severe diabetic nephropathy with nephrotic range proteinuria We will resume EUN inhibitor once stable Hypertension treatment as per above Diabetes- management as per hospital guidelines Non ST elevated myocardial infarction Seen by Cardiology recommending left heart catheterization risk of contrast nephropathy discussed and prophylaxis treatment as per above Also recommend minimum amount of contrast dye Cardiology we will determine after discussion with the patient treatment plan now that renal risks have been explained to patient Guarded renal prognosis we will require daily assessment Plan discussed with: Patient KATHERIN GUTIÉRREZ MD Jun 14, 2025 15:31
[2025-06-15] VITALS (8 sets, daily range): BP systolic 120–137; BP diastolic 74–86; PULSE 86–91; RESP 14–18; TEMP 98.1–98.9; O2SAT 95–98
[2025-06-15 07:10] LABS: Hematocrit 37.6 % (36.0-46.0); Hemoglobin 12.4 g/dL (12.2-16.2); Mean Corpuscular Hemoglobin 27.2 pg (28.0-32.0); Mean Corpuscular Volume 82.0 fL (80.0-100.0); Nucleated Red Blood Cells % 0.2 %
[2025-06-15 07:20] LABS: Chloride 104 mmol/L (98-107); Potassium 3.7 mmol/L (3.5-5.1); Sodium 143 mmol/L (136-145)
[2025-06-15 07:22] LABS: Anion Gap 9 (5-15); Carbon Dioxide 30 mmol/L (20-31)
[2025-06-15 07:27] LABS: BUN/Creatinine Ratio 13.5 (10.0-20.0); Glucose 94 mg/dL (74-106)
[2025-06-15 07:29] LABS: Blood Urea Nitrogen 30 mg/dL (9-23); Calcium 8.5 mg/dL (8.7-10.4)
--- NOTE | 2025-06-15 09:36 | DVHPN2 ---
Progress Note Date Seen: Jun 15, 2025 Medical Necessity Reason Pt with a Central, PICC or Fol: No Subjective Patient reports: Feels better Objective vital signs Vital Sign Date Time Temp Pulse Resp B/P (MAP) Pulse Ox O2 Delivery O2 Flow Rate FiO2 06/15/25 09:00 88 137/86 06/15/25 08:45 98.9 14 98 98.9 06/15/25 08:00 Room Air* 0 21 Total Intake and Output 06/14/25 06/14/25 06/15/25 15:00 23:00 07:00 Intake Total 250 ml 620 ml Balance 250 ml 620 ml medications Current Medications Medications Dose Ordered Sig/Anil Route Start Time Stop Time Status Last Admin Dose Admin Albuterol 2.5 mg Q6HPRN PRN NEB 06/11/25 04:15 Cancel Ceftriaxone Sodium 50 ml @ 100 mls/hr DAILY@09 IV 06/12/25 09:00 06/15/25 08:58 100 MLS/HR Azithromycin 250 ml @ 125 mls/hr DAILY IV 06/12/25 10:00 06/13/25 13:16 125 MLS/HR Hydralazine HCl 10 mg Q6HP PRN IV 06/11/25 04:15 06/13/25 01:02 10 MG Ipratropium [place] 0.5 mg Q6HPRN PRN NEB 06/11/25 04:15 Cancel Acetaminophen/ Hydrocodone Bitart 1 tab Q4HP PRN PO 06/11/25 04:15 06/14/25 16:42 1 TAB Temazepam 15 mg QHSP PRN PO 06/11/25 04:15 06/14/25 22:10 15 MG Ondansetron HCl 4 mg Q4HP PRN IV 06/11/25 04:15 06/14/25 20:46 4 MG Guaifenesin/ Dextromethorphan 10 ml Q4HP PRN PO 06/11/25 04:15 Dextrose 50 ml UD PRN IV 06/11/25 10:45 Cancel Furosemide 40 mg DAILY IV 06/12/25 10:00 06/15/25 09:00 40 MG Diagnostic Test (Pha) 1 strip ACHS 06/11/25 17:00 06/15/25 06:29 1 STRIP Insulin Human Regular HS SC 06/11/25 22:00 06/13/25 22:03 2 UNITS Insulin Human Regular AC SC 06/11/25 17:00 06/14/25 18:19 3 UNITS Dextrose 50 ml UD PRN IV 06/11/25 14:30 Ergocalciferol 50,000 unit Q7D PO 06/11/25 16:00 06/11/25 18:05 50,000 UNIT Famotidine 20 mg DAILY@0700 PO 06/12/25 07:00 06/15/25 06:30 20 MG Insulin Glargine 20 units BID SC 06/12/25 22:00 06/14/25 09:00 20 UNITS Acetaminophen 650 mg Q4HP PRN PO 06/12/25 12:30 06/13/25 10:51 650 MG Ferrous Sulfate 325 mg DAILY PO 06/13/25 10:00 06/15/25 09:00 325 MG Aspirin 81 mg DAILY PO 06/13/25 10:00 06/15/25 09:00 81 MG Atorvastatin Calcium 80 mg HS PO 06/12/25 22:00 06/14/25 22:09 80 MG Carvedilol 3.125 mg Q12HR PO 06/13/25 22:00 06/15/25 09:00 3.125 MG Acetaminophen 650 mg Q6HP PO 06/13/25 18:00 06/14/25 13:06 650 MG Sodium Chloride 1,000 ml @ 60 mls/hr [id number] IV 06/14/25 10:30 06/15/25 06:41 60 MLS/HR Nifedipine 60 mg DAILY PO 06/15/25 10:00 06/15/25 08:59 60 MG Examination: GENERAL:Abnormal, CVS:Abnormal laboratory and microbiology Laboratory Tests 06/15/25 05:32 Test 06/15/25 05:32 Range/Units Serum Glucose 94 74-106 mg/dL Microbiology Date/Time Source Procedure Growth Status 06/13/25 13:38 Sputum Gram Stain Pending Resulted 06/13/25 13:38 Sputum Respiratory Culture - Preliminary Resulted 06/11/25 00:23 Blood Blood Culture - Preliminary NO GROWTH AFTER 72 HOURS OF INCUBATION. Resulted Problem List/Assessment/Plan Problem List/Assessment/Plan Acute kidney injury hemodynamically mediated ; multifactorial diabetic kidney disease and NSTEMI - blood pressure control diuretic therapy, low-salt diet -elevated risk for contrast induced nephropathy and may require dialysis EUN inhibitor currently on hold, prior to cardiac catheterization patient will require IV fluid normal saline 250 cc bolus 1 hour prior to contrast and a rate of 100 cc/hour for 6 hours post cath with Lasix 60 mg IV push. Chronic kidney disease last known stage II in 2023 Evidence of the severe diabetic nephropathy with nephrotic range proteinuria We will resume EUN inhibitor once stable Hypertension treatment as per above Diabetes- management as per hospital guidelines Non ST elevated myocardial infarction Seen by Cardiology recommending left heart catheterization risk of contrast nephropathy discussed and prophylaxis treatment as per above Also recommend minimum amount of contrast dye Cardiology we will determine after discussion with the patient treatment plan now that renal risks have been explained to patient Guarded renal prognosis we will require daily assessment Plan discussed with: Patient Dietary Evaluation Review Recommendations by RD: Dietary education by RD Comments: 1) Add 45g CCHO cardiac restriction to renal diet 2) Encourage PO intake 3) Refer to outpatient RD/CD[facility] for diabetes education 4) Follow-up with cardiology, nephrology 5) Continue to monitor I&O, labs, and skin integrity Expected Outcomes/Goals: 1) appetite and labs to improve 2) f/u in 3-5 days KATHERIN GUTIÉRREZ MD Jun 15, 2025 09:36
--- NOTE | 2025-06-15 13:53 | DVHPNRES ---
Progress Note Date Seen: Jun 15, 2025 Resident Creating Document: ISAURA LOZOYA RESIDENT Medical Necessity Reason Pt with a Central, PICC or Fol: No Subjective Review of Systems Patient seen at bedside. She reports that the shortness of breath, cough, chest pain has subsided. Reports that the headache has come down. Pending coronary angiogram with left heart catheterization when renal function has improved. This is a 39-year-old female with past medical history of hypertension, diabetes, presented to the ER with chief complain of shortness of breaths, congestion and productive cough. Patient endorses a four day history of worsening shortness for breath with associated productive cough, with sputum white in color. Shortness of breaths is present at rest. She also complained of nausea, vomiting, diarrhea since last week. She reported feeling nauseous early in the morning, followed by vomiting episode she had 1 episode of watery emesis every day since last 1 week, no hematemesis reported. Her diarrhea resolved 3 days back, complains of dowling colored stools now. She also complains of associated headache, dizziness since last 1 week. She also reports her blood sugar has been running high greater than 200s over the last week. She denies fever, chills, abdominal pain, pain or burning micturition. PMHx: Hypertension, diabetes mellitus PSHx: No significant history Family history: Noncontributory Social history: Denies smoking, alcohol, recreational drug use. Lives in house with family, full code. Home medication: Lantus, losartan Allergic history: Known allergies ROS: Constitutional: Denies weight loss, fever and chills. HEENT: Denies changes in vision and hearing. Respiratory: Shortness of breadth, congestion, productive cough Cardiovascular: Denies chest discomfort or palpitations GI: Nausea, vomiting, diarrhea. Denies abdominal pain : Denies dysuria and urinary frequency. Musculoskeletal: Denies myalgias and joint pain Skin: Denies rash and pruritus. Neurological: Denies dizziness, headache, vision or hearing problems Objective vital signs Vital Sign Date Time Temp Pulse Resp B/P (MAP) Pulse Ox O2 Delivery O2 Flow Rate FiO2 06/15/25 12:34 98.1 87 16 130/81 (97) 96 98.1 06/15/25 08:00 Room Air* 0 21 Total Intake and Output 06/14/25 06/14/2525 15:00 23:00 07:00 Intake Total 250 ml 620 ml Balance 250 ml 620 ml medications Current Medications Medications Dose Ordered Sig/Anil Route Start Time Stop Time Status Last Admin Dose Admin Albuterol 2.5 mg Q6HPRN PRN NEB 06/11/25 04:15 Cancel Ceftriaxone Sodium 50 ml @ 100 mls/hr DAILY@09 IV 06/12/25 09:00 06/15/25 08:58 100 MLS/HR Azithromycin 250 ml @ 125 mls/hr DAILY IV 06/12/25 10:00 06/15/25 12:00 125 MLS/HR Hydralazine HCl 10 mg Q6HP PRN IV 06/11/25 04:15 06/13/25 01:02 10 MG Ipratropium [place] 0.5 mg Q6HPRN PRN NEB 06/11/25 04:15 Cancel Acetaminophen/ Hydrocodone Bitart 1 tab Q4HP PRN PO 06/11/25 04:15 06/14/25 16:42 1 TAB Temazepam 15 mg QHSP PRN PO 06/11/25 04:15 06/14/25 22:10 15 MG Ondansetron HCl 4 mg Q4HP PRN IV 06/11/25 04:15 06/14/25 20:46 4 MG Guaifenesin/ Dextromethorphan 10 ml Q4HP PRN PO 06/11/25 04:15 Dextrose 50 ml UD PRN IV 06/11/25 10:45 Cancel Furosemide 40 mg DAILY IV 06/12/25 10:00 06/15/25 09:00 40 MG Diagnostic Test (Pha) 1 strip ACHS 06/11/25 17:00 06/15/25 06:29 1 STRIP Insulin Human Regular HS SC 06/11/25 22:00 06/13/25 22:03 2 UNITS Insulin Human Regular AC SC 06/11/25 17:00 06/15/25 13:17 9 UNITS Dextrose 50 ml UD PRN IV 06/11/25 14:30 Ergocalciferol 50,000 unit Q7D PO 06/11/25 16:00 06/11/25 18:05 50,000 UNIT Famotidine 20 mg DAILY@0700 PO 06/12/25 07:00 06/15/25 06:30 20 MG Insulin Glargine 20 units BID SC 06/12/25 22:00 06/14/25 09:00 20 UNITS Acetaminophen 650 mg Q4HP PRN PO 06/12/25 12:30 06/13/25 10:51 650 MG Ferrous Sulfate 325 mg DAILY PO 06/13/25 10:00 06/15/25 09:00 325 MG Aspirin 81 mg DAILY PO 06/13/25 10:00 06/15/25 09:00 81 MG Atorvastatin Calcium 80 mg HS PO 06/12/25 22:00 06/14/25 22:09 80 MG Carvedilol 3.125 mg Q12HR PO 06/13/25 22:00 06/15/25 09:00 3.125 MG Acetaminophen 650 mg Q6HP PO 06/13/25 18:00 06/15/25 13:18 650 MG Sodium Chloride 1,000 ml @ 60 mls/hr [id number] IV 06/14/25 10:30 06/15/25 06:41 60 MLS/HR Nifedipine 60 mg DAILY PO 06/15/25 10:00 06/15/25 08:59 60 MG Examination General: Patient alert and oriented in person, place and time. Patient following commands. HEENT: Normocephalic, atraumatic, moist mucous membranes Respiratory/pulmonary: Clear lungs bilaterally, vesicular murmurs present in almost all lung lobo, no associated crackles or wheezes. Cardiovascular: Normal heart sounds S1 and S2 with no associated murmurs Abdomen: Soft abdomen. No masses palpated, soft abdomen without guarding. Extremities: There is no peripheral edema present at the lower extremities. Peripheral Pulses: 3+ Radial (R). 3+ Radial (L). 3+ Dorsalis pedis (R). 3+ Dorsalis pedis(L) Skin: No rashes or pruritus, there is no sacral edema present at this time. Neurological: Intact cranial nerves no focal neurological deficits. laboratory and microbiology Laboratory Tests 06/15/25 05:32 Test 06/15/25 05:32 Range/Units Serum Glucose 94 74-106 mg/dL Microbiology Date/Time Source Procedure Growth Status 06/13/25 13:38 Sputum Gram Stain Pending Resulted 06/13/25 13:38 Sputum Respiratory Culture - Preliminary Resulted 06/11/25 00:23 Blood Blood Culture - Preliminary NO GROWTH AFTER 72 HOURS OF INCUBATION. Resulted Problem List/Assessment/Plan Problem List/Assessment/Plan Assessment and plan Sepsis due to Community-acquired pneumonia due to Gram-negative, Gram-positive bacteria, improving Lactic acid WNL. Ordered blood culture, sputum culture Continue IV ceftriaxone, azithromycin Holding off IV fluids in context of possible heart failure Med treatment with albuterol, ipratropium given Congestive heart failure, systolic versus diastolic, ruled out Echocardiogram shows LVEF 55% BNP elevated likely due to kidney disease Cardiology on board. Recommended to continue with medical management for the time being and proceed with coronary angiogram with improved creatinine level. Initiated gentle IV hydration and closely monitor creatinine level. Insulin-dependent diabetes mellitus type 2, uncontrolled Simple hyperglycemia High serum osmolarity A1c more than 14 Started on sliding scale insulin, basal Lantus Discontinued methylprednisolone in context of persistently high hyperglycemia; no indications to continue Hypertensive emergency, resolving Acute on chronic renal failure stage 2 hemodynamically mediated (VMN) Nephrotic syndrome, likely due to diabetic nephropathy Normocytic, normochromic anemia, likely due to above NSTEMI type 2 likely due to above Avoid nephrotoxins Low salt diet, oral hydration Holding off IV fluids in context of possible heart failure Repeat BMP Nephrology on board, recommended IV Lasix, strict I&O, renal diet Cardiology on board, cardiac angiogram planned. Patient on telemetry monitoring Continue carvedilol, continue amlodipine daily; lisinopril discontinued. Insomnia Continue Tenazepam Obesity class 1 Hemorrhagic stroke, ruled out CT negative for acute abnormality. DIET: Consistent carb with sodium restriction diet DVT PROPHYLAXIS: SCD, patient ambulatory GI PROPHYLAXIS: Pepcid in context of low GFR CODE STATUS: Goals of care discussed with patient at bedside for more than 18 minutes. Full code DISPOSITION: Telemetry Patient's status and plan discussed with the patient. Case discussed with Dr. Mcneal Plan discussed with: Patient Dietary Evaluation Review Recommendations by RD: Dietary education by RD Comments: 1) Add 45g CCHO cardiac restriction to renal diet 2) Encourage PO intake 3) Refer to outpatient RD/[facility] for diabetes education 4) Follow-up with cardiology, nephrology 5) Continue to monitor I&O, labs, and skin integrity Expected Outcomes/Goals: 1) appetite and labs to improve 2) f/u in 3-5 days Date of Service: Jun 15, 2025 Billing Provider: HARISH MCNEAL MD Common Visit Codes: [id number] INP/OBS CARE(HIGH) ISAURA LOZOYA RESIDENT Jun 15, 2025 13:53 HARISH MCNEAL MD Jun 16, 2025 20:40
[2025-06-16] VITALS (7 sets, daily range): BP systolic 101–130; BP diastolic 66–82; PULSE 69–91; RESP 16–20; TEMP 97.9–98.4; O2SAT 95–100
[2025-06-16 06:36] LABS: Hematocrit 37.2 % (36.0-46.0); Hemoglobin 12.4 g/dL (12.2-16.2); Mean Corpuscular Hemoglobin 27.2 pg (28.0-32.0); Mean Corpuscular Volume 82.0 fL (80.0-100.0); Nucleated Red Blood Cells % 0.0 %
[2025-06-16 06:47] LABS: Chloride 102 mmol/L (98-107); Potassium 3.9 mmol/L (3.5-5.1); Sodium 140 mmol/L (136-145)
[2025-06-16 06:48] LABS: Anion Gap 9 (5-15); Carbon Dioxide 29 mmol/L (20-31)
[2025-06-16 06:49] LABS: Calcium 8.7 mg/dL (8.7-10.4)
[2025-06-16 06:53] LABS: BUN/Creatinine Ratio 12.0 (10.0-20.0); Glucose 75 mg/dL (74-106)
[2025-06-16 06:55] LABS: Blood Urea Nitrogen 28 mg/dL (9-23)
--- NOTE | 2025-06-16 08:41 | DVHPN2 ---
Progress Note Date Seen: Jun 16, 2025 Resident Creating Document: ESTRELLA RILEY RESDIENT Medical Necessity Reason Pt with a Central, PICC or Fol: No Subjective Review of Systems Examined at the bedside. Patient is feeling better since admission, but still complaining of headache. Other Systems: Patient seen and examined by myself today in follow-up with the medicine resident, I agree with the assessment and plan Objective vital signs Vital Sign Date Time Temp Pulse Resp B/P (MAP) Pulse Ox O2 Delivery O2 Flow Rate FiO2 06/16/25 05:00 98.4 85 20 124/82 (96) 98 98.4 06/15/25 20:00 Room Air* 0 21 Total Intake and Output 06/15/25 06/15/25 06/16/25 15:00 23:00 07:00 Intake Total 350 ml 500 ml 100 ml Balance 350 ml 500 ml 100 ml medications Current Medications Medications Dose Ordered Sig/Anil Route Start Time Stop Time Status Last Admin Dose Admin Albuterol 2.5 mg Q6HPRN PRN NEB 06/11/25 04:15 Cancel Ceftriaxone Sodium 50 ml @ 100 mls/hr DAILY@09 IV 06/12/25 09:00 06/15/25 08:58 100 MLS/HR Azithromycin 250 ml @ 125 mls/hr DAILY IV 06/12/25 10:00 06/15/25 12:00 125 MLS/HR Hydralazine HCl 10 mg Q6HP PRN IV 06/11/25 04:15 06/13/25 01:02 10 MG Ipratropium [place] 0.5 mg Q6HPRN PRN NEB 06/11/25 04:15 Cancel Acetaminophen/ Hydrocodone Bitart 1 tab Q4HP PRN PO 06/11/25 04:15 06/14/25 16:42 1 TAB Temazepam 15 mg QHSP PRN PO 06/11/25 04:15 06/14/25 22:10 15 MG Ondansetron HCl 4 mg Q4HP PRN IV 06/11/25 04:15 06/14/25 20:46 4 MG Guaifenesin/ Dextromethorphan 10 ml Q4HP PRN PO 06/11/25 04:15 Dextrose 50 ml UD PRN IV 06/11/25 10:45 Cancel Furosemide 40 mg DAILY IV 06/12/25 10:00 11/2/25 09:00 40 MG Diagnostic Test (Pha) 1 strip ACHS 06/11/25 17:00 06/16/25 07:25 1 STRIP Insulin Human Regular HS SC 06/11/25 22:00 06/15/25 22:45 3 UNITS Insulin Human Regular AC SC 06/11/25 17:00 06/15/25 17:21 2 UNITS Dextrose 50 ml UD PRN IV 06/11/25 14:30 Ergocalciferol 50,000 unit Q7D PO 06/11/25 16:00 06/11/25 18:05 50,000 UNIT Famotidine 20 mg DAILY@0700 PO 06/12/25 07:00 06/15/25 06:30 20 MG Insulin Glargine 20 units BID SC 06/12/25 22:00 06/15/25 22:44 20 UNITS Acetaminophen 650 mg Q4HP PRN PO 06/12/25 12:30 06/13/25 10:51 650 MG Ferrous Sulfate 325 mg DAILY PO 06/13/25 10:00 06/15/25 09:00 325 MG Aspirin 81 mg DAILY PO 06/13/25 10:00 06/15/25 09:00 81 MG Atorvastatin Calcium 80 mg HS PO 06/12/25 22:00 06/15/25 22:45 80 MG Carvedilol 3.125 mg Q12HR PO 06/13/25 22:00 06/15/25 22:46 3.125 MG Acetaminophen 650 mg Q6HP PO 06/13/25 18:00 06/15/25 17:00 650 MG Sodium Chloride 1,000 ml @ 60 mls/hr [id number] IV 06/14/25 10:30 06/15/25 20:02 60 MLS/HR Nifedipine 60 mg DAILY PO 06/15/25 10:00 06/15/25 08:59 60 MG Examination General Appearance: Alert, Oriented X3, Cooperative, No acute distress HEENT: Atraumatic, PERRLA, EOMI, Mucous membrane moist/pink Respiratory: Bilateral crackles Cardiovascular: Regular rate, Normal S1, Normal S2, No murmurs, no chest wall tenderness Abdominal: Normal bowel sounds, Soft, No tenderness, No hepatospenomegaly, No masses Extremities: Bilateral grade 1 pedal edema Skin: No rashes, No breakdown, No significant lesion Neuro: Normal gait, Normal speech, Strength at 5/5 X4 ext, Normal tone, Sensation intact, Cranial nerves 3-12 NL, Reflexes 2+ Psych/Mental Status: Mental status NL, Mood NL Examination: LUNGS:Normal, CVS:Normal, MSK:Normal laboratory and microbiology Laboratory Tests 06/16/25 05:39 Test 06/16/25 05:39 Range/Units Serum Glucose 75 74-106 mg/dL Microbiology Date/Time Source Procedure Growth Status 06/13/25 13:38 Sputum Gram Stain - Final Resulted 06/13/25 13:38 Sputum Respiratory Culture - Preliminary Resulted 06/11/25 00:23 Blood Blood Culture - Final NO GROWTH AFTER 5 DAYS OF INCUBATION. Complete Problem List/Assessment/Plan Problem List/Assessment/Plan This is a 39-year-old lady with past medical history of diabetes, hypertension, diabetic foot came to the hospital due to shortness of breaths and cough. Nephrology consulted for NONI. Assessment: NONI, on CKD, secondary to hemodynamic mediated Mild hyponatremia due to excess H2O Congestive heart failure exacerbation NSTEMI Diabetes type 2 with hyperglycemia Mild anemia Hypertensive Emergency Chronic NSAIDs use Obesity Nephrotic syndrome likely due to diabetic nephropathy Plan/recommendation: (Dr. Vasquez) * IV Lasix 40 mg daily * Continue Amlodopine 10mg daily, start Carvidilol 6.25mg BID, DC lisinopril * IV fluid for LHC to minimize nephrotoxicity: 100ml NS/hr 6hr prior to cath and then continue for 18hr after cath with Lasix 80mg IV push immediately following cardiac catheterization * Strict I&Os, avoid nephrotoxic drugs * Ergocalciferol 05719 q.week * Renal diet * We will follow up with the patient Thank you for giving us the opportunity to take care of your patient. Please call back if you have any questions/concerns. Plan discussed with: Patient, Other Dietary Evaluation Review Recommendations by RD: Dietary education by RD Comments: 1) Add 45g CCHO cardiac restriction to renal diet 2) Encourage PO intake 3) Refer to outpatient RD/[facility] for diabetes education 4) Follow-up with cardiology, nephrology 5) Continue to monitor I&O, labs, and skin integrity Expected Outcomes/Goals: 1) appetite and labs to improve 2) f/u in 3-5 days ESTRELLA RILEY Jun 16, 2025 08:41 DEUCE VASQUEZ MD Jun 16, 2025 11:35
--- NOTE | 2025-06-16 10:54 | DVHPN2 ---
Consult Progress Note Date Seen: Jun 16, 2025 Subjective Review of Systems: CVS:Normal, RESPIRATORY:Normal, NEURO:Normal Other Systems: Denies any active cardiac symptoms Objective vital signs Vital Sign Date Time Temp Pulse Resp B/P (MAP) Pulse Ox O2 Delivery O2 Flow Rate FiO2 06/16/25 09:27 129/83 06/16/25 09:00 98.4 74 16 97 98.4 06/16/25 08:00 Room Air* 0 21 Total Intake and Output 06/15/25 06/15/25 06/16/25 14:59 22:59 06:59 Intake Total 350 ml 500 ml 100 ml Balance 350 ml 500 ml 100 ml medications Current Medications Medications Dose Ordered Sig/Anil Route Start Time Stop Time Status Last Admin Dose Admin Albuterol 2.5 mg Q6HPRN PRN NEB 06/11/25 04:15 Cancel Ceftriaxone Sodium 50 ml @ 100 mls/hr DAILY@09 IV 06/12/25 09:00 06/16/25 09:27 100 MLS/HR Azithromycin 250 ml @ 125 mls/hr DAILY IV 06/12/25 10:00 06/15/25 12:00 125 MLS/HR Hydralazine HCl 10 mg Q6HP PRN IV 06/11/25 04:15 06/13/25 01:02 10 MG Ipratropium [place] 0.5 mg Q6HPRN PRN NEB 06/11/25 04:15 Cancel Acetaminophen/ Hydrocodone Bitart 1 tab Q4HP PRN PO 06/11/25 04:15 06/14/25 16:42 1 TAB Temazepam 15 mg QHSP PRN PO 06/11/25 04:15 06/14/25 22:10 15 MG Ondansetron HCl 4 mg Q4HP PRN IV 06/11/25 04:15 06/14/25 20:46 4 MG Guaifenesin/ Dextromethorphan 10 ml Q4HP PRN PO 06/11/25 04:15 Dextrose 50 ml UD PRN IV 06/11/25 10:45 Cancel Furosemide 40 mg DAILY IV 06/12/25 10:00 06/16/25 09:27 40 MG Diagnostic Test (Pha) 1 strip ACHS 06/11/25 17:00 06/16/25 07:25 1 STRIP Insulin Human Regular HS SC 06/11/25 22:00 06/15/25 22:45 3 UNITS Insulin Human Regular AC SC 06/11/25 17:00 06/15/25 17:21 2 UNITS Dextrose 50 ml UD PRN IV 06/11/25 14:30 Ergocalciferol 50,000 unit Q7D PO 06/11/25 16:00 06/11/25 18:05 50,000 UNIT Famotidine 20 mg DAILY@0700 PO 06/12/25 07:00 06/15/25 06:30 20 MG Insulin Glargine 20 units BID SC 06/12/25 22:00 Hold 06/15/25 22:44 20 UNITS Acetaminophen 650 mg Q4HP PRN PO 06/12/25 12:30 06/13/25 10:51 650 MG Ferrous Sulfate 325 mg DAILY PO 06/13/25 10:00 06/15/25 09:00 325 MG Aspirin 81 mg DAILY PO 06/13/25 10:00 06/15/25 09:00 81 MG Atorvastatin Calcium 80 mg HS PO 06/12/25 22:00 06/15/25 22:45 80 MG Carvedilol 3.125 mg Q12HR PO 06/13/25 22:00 06/15/25 22:46 3.125 MG Acetaminophen 650 mg Q6HP PO 06/13/25 18:00 06/15/25 17:00 650 MG Sodium Chloride 1,000 ml @ 60 mls/hr [id number] IV 06/14/25 10:30 06/15/25 20:02 60 MLS/HR Nifedipine 60 mg DAILY PO 06/15/25 10:00 06/15/25 08:59 60 MG Examination: LUNGS:Normal, CVS:Normal (Sinus rhythm with T-wave inversion), NEURO:Normal laboratory and microbiology Laboratory Tests 06/16/25 05:39 Test 06/16/25 05:39 Range/Units Serum Glucose 75 74-106 mg/dL Problem List/Assessment/Plan Problem List/Assessment/Plan Sepsis with PNA NSTEMI, questionable Type I Acute on chronic decompensated HFpEF, NYHA class II Pertinent family history for cardiovascular disease Type 2 diabetes mellitus, uncontrolled (A1c >14%) Hypertensive urgency Dyslipidemia, newly diagnosed Acute kidney injury Obesity Plan/Recommendations (Dr. Portillo) * Transthoracic echocardiogram reveals an EF of 55% * Twelve lead electrocardiogram revealed a normal sinus rhythm with T-wave inversion to lateral leads * Troponin levels peaked at 157 ng/L Plan: Cardiac asymptomatic. Questionable NSTEMI Type I for which the patient has been scheduled for a treadmill cardiolite stress test at first available. In the meantime, continue aggressive blood pressure control, single-antiplatelet therapy, and lipid-lowering agent. Continue Nephrology recommendations including strict intake/output, daily weights, & low sodium diet. Strongly counseled on diet, exercise, tight glycemic control, and medical compliance. Further orders per clinical course. Thank you for allowing us to care for this patient. Please call with any questions or concerns. This medical document was created using an electronic medical record system with voice recognition software and computerized dictation system. Although this document has been carefully reviewed, there might still be some phonetic and typographical errors. Occasional wrong-word or ``sound-alike substitutions may have occurred due to the inherent limitations of voice recognition software. These areas are purely typographical due to imperfections of the software programs and do not reflect any compromise in the patient's medical care. Please read the chart carefully and recognize, using context, where these substitutions have occurred. Plan discussed with: Patient, Other Dietary Evaluation Review Recommendations by RD: Dietary education by RD Comments: 1) Add 45g CCHO cardiac restriction to renal diet 2) Encourage PO intake 3) Refer to outpatient RD/CDCES for diabetes education 4) Follow-up with cardiology, nephrology 5) Continue to monitor I&O, labs, and skin integrity Expected Outcomes/Goals: 1) appetite and labs to improve 2) f/u in 3-5 days Date of Service: Jun 16, 2025 Billing Provider: ROSS APONTE Cardiology Common Codes: [id number](High ROSS APONTE Jun 16, 2025 10:54
--- NOTE | 2025-06-16 13:28 | DVHCARD ---
Cardiology Stress Test [place] Treadmill Stress Test [place] Referring MD: TRISTAN Aponte Protocol: Liborio (with cardiolite) Reason for referral: Chest Pain Target heart Rate:@85%: 153 Percent MPHR: 180 METS: 7.50 Resting Heart rate: 85 Resting Blood Pressure: 113/82 Exercise Heart Rate: 125 Exercise Blood Pressure: 154/86 Reason for Termination of Test: Shortness of breath Baseline EKG: Sinus rhyhtm with T-wave inversion to inferolateral leads Stress EKG: Sinus tachycardia without progressive ST-T wave segment changes Functional Capacity: Mildly Decreased Heart Rate Response: Adequate Blood Pressure Response: Hypertensive Clinical response: Non-ischemic Arrhythmia?: No Cardiolite Injected?: Yes ST-T Changes: Non/Minimal Probability of Inducible Ische: Perfusion result pending Comments: Liborio protocol terminated prematurely 2/2 increased fatigue. Date of Service: Jun 16, 2025 Billing Provider: ROSS APONTE Cardiology Common Codes: PROCEDURE ONLY Treadmill W/Cardiolite Nuclear: [id number], INTERP, RPT ROSS APONTE Jun 16, 2025 13:28
--- NOTE | 2025-06-16 16:48 | DVHPNRES ---
Progress Note Date Seen: Jun 16, 2025 Resident Creating Document: ROSY LOU RESIDENT Medical Necessity Reason Pt with a Central, PICC or Fol: No Subjective Review of Systems Brief history on arrival: This is a 39-year-old female with past medical history of hypertension, diabetes, presented to the ER with chief complain of shortness of breaths, congestion and productive cough. Patient endorses a four day history of worsening shortness for breath with associated productive cough, with sputum white in color. Shortness of breaths is present at rest. She also complained of nausea, vomiting, diarrhea since last week. She reported feeling nauseous early in the morning, followed by vomiting episode she had 1 episode of watery emesis every day since last 1 week, no hematemesis reported. Her diarrhea resolved 3 days back, complains of dowling colored stools now. She also complains of associated headache, dizziness since last 1 week. She also reports her blood sugar has been running high greater than 200s over the last week. She denies fever, chills, abdominal pain, pain or burning micturition. PMHx: Hypertension, diabetes mellitus PSHx: No significant history Family history: Noncontributory Social history: Denies smoking, alcohol, recreational drug use. Lives in house with family, full code. Home medication: Lantus, losartan Allergic history: Known allergies ROS: Constitutional: Denies weight loss, fever and chills. HEENT: Denies changes in vision and hearing. Respiratory: Shortness of breadth, congestion, productive cough Cardiovascular: Denies chest discomfort or palpitations GI: Nausea, vomiting, diarrhea. Denies abdominal pain : Denies dysuria and urinary frequency. Musculoskeletal: Denies myalgias and joint pain Skin: Denies rash and pruritus. Neurological: Denies dizziness, headache, vision or hearing problems 06/15/2025: She reports that the shortness of breath, cough, chest pain has subsided. Reports that the headache has come down. Pending coronary angiogram with left heart catheterization when renal function has improved. 06/16/25: Patient was seen at bedside today. She has taken for cardiac stress test today. We will continue monitoring and managing. Objective vital signs Vital Sign Date Time Temp Pulse Resp B/P (MAP) Pulse Ox O2 Delivery O2 Flow Rate FiO2 06/16/25 14:48 135/77 06/16/25 14:48 83 06/16/25 09:00 98.4 16 97 98.4 06/16/25 08:00 Room Air* 0 21 Total Intake and Output 06/15/25 06/15/25 06/16/25 15:00 23:00 07:00 Intake Total 350 ml 500 ml 100 ml Balance 350 ml 500 ml 100 ml medications Current Medications Medications Dose Ordered Sig/Anil Route Start Time Stop Time Status Last Admin Dose Admin Albuterol 2.5 mg Q6HPRN PRN NEB 06/11/25 04:15 Cancel Ceftriaxone Sodium 50 ml @ 100 mls/hr DAILY@09 IV 06/12/25 09:00 06/16/25 09:27 100 MLS/HR Azithromycin 250 ml @ 125 mls/hr DAILY IV 06/12/25 10:00 06/16/25 10:45 125 MLS/HR Hydralazine HCl 10 mg Q6HP PRN IV 06/11/25 04:15 06/13/25 01:02 10 MG Ipratropium [place] 0.5 mg Q6HPRN PRN NEB 06/11/25 04:15 Cancel Acetaminophen/ Hydrocodone Bitart 1 tab Q4HP PRN PO 06/11/25 04:15 06/14/25 16:42 1 TAB Temazepam 15 mg QHSP PRN PO 06/11/25 04:15 06/14/25 22:10 15 MG Ondansetron HCl 4 mg Q4HP PRN IV 06/11/25 04:15 06/14/25 20:46 4 MG Guaifenesin/ Dextromethorphan 10 ml Q4HP PRN PO 06/11/25 04:15 Dextrose 50 ml UD PRN IV 06/11/25 10:45 Cancel Furosemide 40 mg DAILY IV 06/12/25 10:00 06/16/25 09:27 40 MG Diagnostic Test (Pha) 1 strip ACHS 06/11/25 17:00 06/16/25 07:25 1 STRIP Insulin Human Regular HS SC 06/11/25 22:00 06/15/25 22:45 3 UNITS Insulin Human Regular AC SC 06/11/25 17:00 06/15/25 17:21 2 UNITS Dextrose 50 ml UD PRN IV 06/11/25 14:30 Ergocalciferol 50,000 unit Q7D PO 06/11/25 16:00 06/11/25 18:05 50,000 UNIT Famotidine 20 mg DAILY@0700 PO 06/12/25 07:00 06/15/25 06:30 20 MG Insulin Glargine 20 units BID SC 06/12/25 22:00 Hold 06/15/25 22:44 20 UNITS Acetaminophen 650 mg Q4HP PRN PO 06/12/25 12:30 06/13/25 10:51 650 MG Ferrous Sulfate 325 mg DAILY PO 06/13/25 10:00 06/16/25 14:47 325 MG Aspirin 81 mg DAILY PO 06/13/25 10:00 06/16/25 14:47 81 MG Atorvastatin Calcium 80 mg HS PO 06/12/25 22:00 06/15/25 22:45 80 MG Carvedilol 3.125 mg Q12HR PO 06/13/25 22:00 06/16/25 14:48 3.125 MG Acetaminophen 650 mg Q6HP PO 06/13/25 18:00 06/15/25 17:00 650 MG Sodium Chloride 1,000 ml @ 60 mls/hr [id number] IV 06/14/25 10:30 06/16/25 14:51 60 MLS/HR Nifedipine 60 mg DAILY PO 06/15/25 10:00 06/16/25 14:48 60 MG Examination General: Patient alert and oriented in person, place and time. Patient following commands. HEENT: Normocephalic, atraumatic, moist mucous membranes Respiratory/pulmonary: Clear lungs bilaterally, vesicular murmurs present in almost all lung lobo, no associated crackles or wheezes. Cardiovascular: Normal heart sounds S1 and S2 with no associated murmurs Abdomen: Soft abdomen. No masses palpated, soft abdomen without guarding. Extremities: There is no peripheral edema present at the lower extremities. Peripheral Pulses: 3+ Radial (R). 3+ Radial (L). 3+ Dorsalis pedis (R). 3+ Dorsalis pedis(L) Skin: No rashes or pruritus, there is no sacral edema present at this time. Neurological: Intact cranial nerves no focal neurological deficits. laboratory and microbiology Laboratory Tests 06/16/25 05:39 Test 06/16/25 05:39 Range/Units Serum Glucose 75 74-106 mg/dL Microbiology Date/Time Source Procedure Growth Status 06/13/25 13:38 Sputum Gram Stain - Final Resulted 06/13/25 13:38 Sputum Respiratory Culture - Preliminary Resulted 06/11/25 00:23 Blood Blood Culture - Final NO GROWTH AFTER 5 DAYS OF INCUBATION. Complete Problem List/Assessment/Plan Problem List/Assessment/Plan Sepsis due to Community-acquired pneumonia due to Gram-negative, Gram-positive bacteria, improving Lactic acid WNL. Ordered blood culture, sputum culture Continue IV ceftriaxone, azithromycin Holding off IV fluids in context of possible heart failure Med treatment with albuterol, ipratropium given Congestive heart failure, systolic versus diastolic, ruled out NSTEMI type 1 vs type 2 Hypertensive emergency, resolving Echocardiogram shows LVEF 55% BNP elevated likely due to kidney disease Cardiology on board. Patient taken in for stress test today considering elevated creatinine. We will consider cardiac angiogram if patient's stress test is positive for ischemia. Insulin-dependent diabetes mellitus type 2, uncontrolled Simple hyperglycemia High serum osmolarity A1c more than 14 Started on sliding scale insulin, basal Lantus Discontinued methylprednisolone in context of persistently high hyperglycemia; no indications to continue Acute on chronic renal failure stage 2 hemodynamically mediated (VMN) Nephrotic syndrome, likely due to diabetic nephropathy Normocytic, normochromic anemia, likely due to above Avoid nephrotoxins Low salt diet, oral hydration Holding off IV fluids in context of possible heart failure Repeat [facility] Nephrology on board, recommended IV Lasix, strict I&O, renal diet Cardiology on board, cardiac angiogram planned. Patient on telemetry monitoring Continue carvedilol, continue amlodipine daily; lisinopril discontinued. Insomnia Continue Tenazepam Obesity class 1 Hemorrhagic stroke, ruled out CT negative for acute abnormality. DIET: Consistent carb with sodium restriction diet DVT PROPHYLAXIS: SCD, patient ambulatory GI PROPHYLAXIS: Pepcid in context of low GFR CODE STATUS: Goals of care discussed with patient at bedside for more than 18 minutes. Full code DISPOSITION: Telemetry Patient's status and plan discussed with the patient. Case discussed with Dr. Mcneal Plan discussed with: Patient, Other (Nurses) My Orders My Orders Orders - ROSY LOU RESIDENT Procedure Category Date Status Time Consistent DIET 06/16/25 Transmitted Carb(Ccho)Diabetes Dinner Dietary Evaluation Review Recommendations by RD: Dietary education by RD Comments: 1) Add 45g CCHO cardiac restriction to renal diet 2) Encourage PO intake 3) Refer to outpatient RD/CDCES for diabetes education 4) Follow-up with cardiology, nephrology 5) Continue to monitor I&O, labs, and skin integrity Expected Outcomes/Goals: 1) appetite and labs to improve 2) f/u in 3-5 days Date of Service: Jun 16, 2025 Billing Provider: HARISH MCNEAL MD Common Visit Codes: [id number] INP/OBS CARE(HIGH) ROSY LOU RESIDENT Jun 16, 2025 16:48 HARISH MCNEAL MD Jun 16, 2025 20:40
[2025-06-17] VITALS (9 sets, daily range): BP systolic 105–138; BP diastolic 75–90; PULSE 76–91; RESP 16–18; TEMP 97.7–98.6; O2SAT 95–98
--- NOTE | 2025-06-17 01:00 | DVHPN2 ---
Consult Progress Note Date Seen: Jun 16, 2025 Subjective Other Systems: Patient was seen and evaluated in follow up. Transthoracic echocardiogram reveals an EF of 55%. The patient is scheduled for treadmill cardiolite stress test. CBC and chemistry are WNL. Telemetry reviewed. Objective vital signs Vital Sign Date Time Temp Pulse Resp B/P (MAP) Pulse Ox O2 Delivery O2 Flow Rate FiO2 06/16/25 21:36 85 101/70 06/16/25 21:00 97.9 19 95 97.9 06/16/25 20:00 Room Air* 0 21 Total Intake and Output 06/16/25 06/16/25 06/17/25 15:00 23:00 07:00 Intake Total 50 ml 950 ml Balance 50 ml 950 ml medications Current Medications Medications Dose Ordered Sig/Anil Route Start Time Stop Time Status Last Admin Dose Admin Albuterol 2.5 mg Q6HPRN PRN NEB 06/11/25 04:15 Cancel Ceftriaxone Sodium 50 ml @ 100 mls/hr DAILY@09 IV 06/12/25 09:00 06/16/25 09:27 100 MLS/HR Azithromycin 250 ml @ 125 mls/hr DAILY IV 06/12/25 10:00 06/16/25 10:45 125 MLS/HR Hydralazine HCl 10 mg Q6HP PRN IV 06/11/25 04:15 06/13/25 01:02 10 MG Ipratropium [place] 0.5 mg Q6HPRN PRN NEB 06/11/25 04:15 Cancel Acetaminophen/ Hydrocodone Bitart 1 tab Q4HP PRN PO 06/11/25 04:15 06/14/25 16:42 1 TAB Temazepam 15 mg QHSP PRN PO 06/11/25 04:15 06/14/25 22:10 15 MG Ondansetron HCl 4 mg Q4HP PRN IV 06/11/25 04:15 06/14/25 20:46 4 MG Guaifenesin/ Dextromethorphan 10 ml Q4HP PRN PO 06/11/25 04:15 Dextrose 50 ml UD PRN IV 06/11/25 10:45 Cancel Furosemide 40 mg DAILY IV 06/12/25 10:00 06/16/25 09:27 40 MG Diagnostic Test (Pha) 1 strip ACHS 06/11/25 17:00 06/16/25 21:38 1 STRIP Insulin Human Regular HS SC 06/11/25 22:00 06/16/25 21:43 3 UNITS Insulin Human Regular AC SC 06/11/25 17:00 06/16/25 17:50 15 UNITS Dextrose 50 ml UD PRN IV 06/11/25 14:30 Ergocalciferol 50,000 unit Q7D PO 06/11/25 16:00 06/11/25 18:05 50,000 UNIT Famotidine 20 mg DAILY@0700 PO 06/12/25 07:00 06/15/25 06:30 20 MG Insulin Glargine 20 units BID SC 06/12/25 22:00 Hold 06/15/25 22:44 20 UNITS Acetaminophen 650 mg Q4HP PRN PO 06/12/25 12:30 06/13/25 10:51 650 MG Ferrous Sulfate 325 mg DAILY PO 06/13/25 10:00 06/16/25 14:47 325 MG Aspirin 81 mg DAILY PO 06/13/25 10:00 06/16/25 14:47 81 MG Atorvastatin Calcium 80 mg HS PO 06/12/25 22:00 06/16/25 21:36 80 MG Carvedilol 3.125 mg Q12HR PO 06/13/25 22:00 06/16/25 14:48 3.125 MG Acetaminophen 650 mg Q6HP PO 06/13/25 18:00 06/16/25 17:48 650 MG Sodium Chloride 1,000 ml @ 60 mls/hr [id number] IV 06/14/25 10:30 06/16/25 14:51 60 MLS/HR Nifedipine 60 mg DAILY PO 06/15/25 10:00 06/16/25 14:48 60 MG Examination: GENERAL:Normal, HEENT:Normal, NECK:Normal, LUNGS:Normal, CVS:Normal (Sinus rhythm with T-wave inversion), ABDOMEN:Normal, MSK:Normal, SKIN:Normal, NEURO:Normal laboratory and microbiology Laboratory Tests 06/16/25 05:39 Test 06/16/25 05:39 Range/Units Serum Glucose 75 74-106 mg/dL Problem List/Assessment/Plan Problem List/Assessment/Plan Problem List/Assessment/Plan Sepsis with PNA. NSTEMI, questionable Type I. Acute on chronic decompensated HFpEF, NYHA class II. Pertinent family history for cardiovascular disease. Type 2 diabetes mellitus, uncontrolled (A1c >14%). Hypertensive urgency. Dyslipidemia, newly diagnosed. Acute kidney injury. Obesity. Plan/Recommendations Continued all current supportive medical care. Patient has been seen by Rona Petersen NP on my behalf. We have discussed the plan with the patient. Transthoracic echocardiogram reveals an EF of 55%. Twelve lead electrocardiogram revealed a normal sinus rhythm with T-wave inversion to lateral leads. Troponin levels peaked at 157 ng/L. Cardiac asymptomatic. Questionable NSTEMI Type I for which the patient has been scheduled for a treadmill cardiolite stress test at first available. In the meantime, continue aggressive blood pressure control, single-antiplatelet therapy, and lipid-lowering agent. Continue Nephrology recommendations including strict intake/output, daily weights, & low sodium diet. Strongly counseled on diet, exercise, tight glycemic control, and medical compliance. Additional plan as per the hospital course. Plan discussed with: Patient Dietary Evaluation Review Recommendations by RD: Dietary education by RD Comments: 1) Add 45g CCHO cardiac restriction to renal diet 2) Encourage PO intake 3) Refer to outpatient RD/CDCES for diabetes education 4) Follow-up with cardiology, nephrology 5) Continue to monitor I&O, labs, and skin integrity Expected Outcomes/Goals: 1) appetite and labs to improve 2) f/u in 3-5 days Date of Service: Jun 16, 2025 Billing Provider: GABY PIEDRA MD Cardiology Common Codes: [id number] [facility] GABY PIEDRA MD Jun 17, 2025 01:00
--- NOTE | 2025-06-17 06:45 | DVHSR ---
APPROVED REPORT Exam: Nuclear Stress Test Indication: Chest pain BMI: 0 Stress Test Details Stress Test: Exercise stress testing was performed using a Liborio protocol. HR Resting HR: 85 bpm Max Heart Rate (APMHR): 180.916278 bpm Max HR Achieved: 125 bpm Target HR (85% APMHR): 153.563933 bpm % of APMHR: 69.44 Recovery HR: 96 bpm BP Resting BP: 113/82 mmHg Recovery BP: 138/86 mmHg ECG Resting ECG: Sinus Rhythm Clinical Reason for Termination: Fatigue, Patient Request Exercise duration: 6 min 21 sec Nurse Comments Recieved ambulatory, A/Ox4 on RA, connected to monitor and storage bin tender, VS stable. PIV S/L flushes well, reviewed POC, pt verbalized understanding. Nicola PROCESS OPERATOR here to monitor exam. Treadmill test performed per protocol. Pt stable, tolerated well, VS returned to baseline. Pt to follow up with investigation division sergeant for results. Stress ECG Conclusion lvef 38% fixed inferolateral wall defect cannot exclude TID , which can represent CAD NM EXAM: Myocardial Perfusion REST/STRESS Imaging Protocol: Rest Tc-99m/Stress Tc-99m 1 day Resting Data Rest SPECT myocardial perfusion imaging was performed in supine position 45 minutes following the intravenous injection of 10.9 mCi of Tc-99m Sestamibi. Time of rest injection: 1130 Time of rest imagin Administration Route: IV Administration Site: Right AC Exercise Stress At peak stress, the patient was injected intravenously with 31.2mCi of Tc-99m Sestamibi. Time of stress injection: 1315 Time of stress imagin Administration Route: IV Administration Site: Right AC Gated Stress SPECT was performed 55 minutes after stress injection. The images were gated to evaluate regional wall motion and calculate left ventricular ejection fraction. Nuclear Conclusion Nuclear Findings: equivocal lvef 38% fixed inferolateral wall defect cannot exclude TID , which can represent CAD
[2025-06-17 07:19] LABS: Hematocrit 36.1 % (36.0-46.0); Hemoglobin 11.9 g/dL (12.2-16.2); Mean Corpuscular Hemoglobin 27.0 pg (28.0-32.0); Mean Corpuscular Volume 82.0 fL (80.0-100.0); Nucleated Red Blood Cells % 0.0 %
[2025-06-17 07:24] LABS: Chloride 101 mmol/L (98-107); Potassium 4.2 mmol/L (3.5-5.1)
[2025-06-17 07:25] LABS: Anion Gap 8 (5-15); Carbon Dioxide 26 mmol/L (20-31)
[2025-06-17 07:30] LABS: Calcium 8.6 mg/dL (8.7-10.4); Sodium 135 mmol/L (136-145)
[2025-06-17 07:31] LABS: BUN/Creatinine Ratio 13.4 (10.0-20.0); Blood Urea Nitrogen 32 mg/dL (9-23); Glucose 152 mg/dL (74-106)
--- NOTE | 2025-06-17 09:14 | DVHPN2 ---
Consult Progress Note Date Seen: Jun 17, 2025 Subjective Review of Systems: CVS:Normal, RESPIRATORY:Normal, NEURO:Normal Objective vital signs Vital Sign Date Time Temp Pulse Resp B/P (MAP) Pulse Ox O2 Delivery O2 Flow Rate FiO2 06/17/25 08:34 81 126/82 06/17/25 08:27 98.6 17 95 98.6 06/17/25 07:50 Room Air* 0 21 Total Intake and Output 06/16/25 06/16/25 06/17/25 15:00 23:00 07:00 Intake Total 50 ml 950 ml 400 ml Balance 50 ml 950 ml 400 ml medications Current Medications Medications Dose Ordered Sig/Anil Route Start Time Stop Time Status Last Admin Dose Admin Albuterol 2.5 mg Q6HPRN PRN NEB 06/11/25 04:15 Cancel Ceftriaxone Sodium 50 ml @ 100 mls/hr DAILY@09 IV 06/12/25 09:00 06/17/25 08:32 100 MLS/HR Azithromycin 250 ml @ 125 mls/hr DAILY IV 06/12/25 10:00 06/17/25 08:33 125 MLS/HR Hydralazine HCl 10 mg Q6HP PRN IV 06/11/25 04:15 06/13/25 01:02 10 MG Ipratropium [place] 0.5 mg Q6HPRN PRN NEB 06/11/25 04:15 Cancel Acetaminophen/ Hydrocodone Bitart 1 tab Q4HP PRN PO 06/11/25 04:15 06/17/25 02:27 1 TAB Temazepam 15 mg QHSP PRN PO 06/11/25 04:15 06/14/25 22:10 15 MG Ondansetron HCl 4 mg Q4HP PRN IV 06/11/25 04:15 06/14/25 20:46 4 MG Guaifenesin/ Dextromethorphan 10 ml Q4HP PRN PO 06/11/25 04:15 Dextrose 50 ml UD PRN IV 06/11/25 10:45 Cancel Furosemide 40 mg DAILY IV 06/12/25 10:00 06/17/25 08:33 40 MG Diagnostic Test (Pha) 1 strip ACHS 06/11/25 17:00 06/17/25 06:08 1 STRIP Insulin Human Regular HS SC 06/11/25 22:00 06/16/25 21:43 3 UNITS Insulin Human Regular AC SC 06/11/25 17:00 06/17/25 06:08 3 UNITS Dextrose 50 ml UD PRN IV 06/11/25 14:30 Ergocalciferol 50,000 unit Q7D PO 06/11/25 16:00 06/11/25 18:05 50,000 UNIT Famotidine 20 mg DAILY@0700 PO 06/12/25 07:00 06/17/25 06:14 20 MG Insulin Glargine 20 units BID SC 06/12/25 22:00 Hold 06/15/25 22:44 20 UNITS Acetaminophen 650 mg Q4HP PRN PO 06/12/25 12:30 06/13/25 10:51 650 MG Ferrous Sulfate 325 mg DAILY PO 06/13/25 10:00 06/17/25 08:34 325 MG Aspirin 81 mg DAILY PO 06/13/25 10:00 06/17/25 08:35 81 MG Atorvastatin Calcium 80 mg HS PO 06/12/25 22:00 06/16/25 21:36 80 MG Carvedilol 3.125 mg Q12HR PO 06/13/25 22:00 06/17/25 08:34 3.125 MG Acetaminophen 650 mg Q6HP PO 06/13/25 18:00 06/17/25 06:13 650 MG Sodium Chloride 1,000 ml @ 60 mls/hr [id number] IV 06/14/25 10:30 06/17/25 05:10 60 MLS/HR Examination: GENERAL:Abnormal (+Anasarca ), LUNGS:Abnormal (Bilateral crackles), CVS:Normal, NEURO:Normal laboratory and microbiology Laboratory Tests 06/17/25 05:41 Test 06/17/25 05:41 Range/Units Serum Glucose 152 H 74-106 mg/dL Problem List/Assessment/Plan Problem List/Assessment/Plan Sepsis with PNA NSTEMI, questionable Type I Acute on chronic decompensated HFpEF, NYHA class II Pertinent family history for cardiovascular disease Type 2 diabetes mellitus, uncontrolled (A1c >14%) Hypertensive urgency Dyslipidemia, newly diagnosed Acute kidney injury Obesity Plan/Recommendations (Dr. Portillo) * Transthoracic echocardiogram reveals an EF of 55% * Liborio protocol with Cardiolite stress test: Fixed inferolateral wall defect. Can not exclude TID which can represent CAD * Twelve lead electrocardiogram revealed a normal sinus rhythm with T-wave inversion to lateral leads * Troponin levels peaked at 157 ng/L Plan: Cardiac asymptomatic. Given treadmill cardiolite stress test findings, scheduled for a cardiac catheterization and coronary angiogram with Dr. Portillo on 06/18/2025. All risks and benefits of the procedure were discussed with the patient including risk for CARMEN and possible HD. She agrees to proceed with intervention. All questions answered. In the meantime, continue aggressive blood pressure control, single-antiplatelet therapy, and lipid-lowering agent. Continue Nephrology recommendations including strict intake/output, daily weights, & low sodium diet. Strongly counseled on diet, exercise, tight glycemic control, and medical compliance. Further orders per clinical course. Thank you for allowing us to care for this patient. Please call with any questions or concerns. This medical document was created using an electronic medical record system with voice recognition software and computerized dictation system. Although this document has been carefully reviewed, there might still be some phonetic and typographical errors. Occasional wrong-word or ``sound-alike substitutions may have occurred due to the inherent limitations of voice recognition software. These areas are purely typographical due to imperfections of the software programs and do not reflect any compromise in the patient's medical care. Please read the chart carefully and recognize, using context, where these substitutions have occurred. Plan discussed with: Patient, Other Dietary Evaluation Review Recommendations by RD: Dietary education by RD Comments: 1) Add 45g CCHO cardiac restriction to renal diet 2) Encourage PO intake 3) Refer to outpatient RD/CDCES for diabetes education 4) Follow-up with cardiology, nephrology 5) Continue to monitor I&O, labs, and skin integrity Expected Outcomes/Goals: 1) appetite and labs to improve 2) f/u in 3-5 days Date of Service: Jun 17, 2025 Billing Provider: ROSS APONTE Cardiology Common Codes: [id number] [facility] ROSS APONTE Jun 17, 2025 09:14
--- NOTE | 2025-06-17 09:36 | DVHPNRES ---
Progress Note Date Seen: Jun 17, 2025 Resident Creating Document: ROSY LOU RESIDENT Medical Necessity Reason Pt with a Central, PICC or Fol: No Subjective Review of Systems Brief history on arrival: This is a 39-year-old female with past medical history of hypertension, diabetes, presented to the ER with chief complain of shortness of breaths, congestion and productive cough. Patient endorses a four day history of worsening shortness for breath with associated productive cough, with sputum white in color. Shortness of breaths is present at rest. She also complained of nausea, vomiting, diarrhea since last week. She reported feeling nauseous early in the morning, followed by vomiting episode she had 1 episode of watery emesis every day since last 1 week, no hematemesis reported. Her diarrhea resolved 3 days back, complains of dowling colored stools now. She also complains of associated headache, dizziness since last 1 week. She also reports her blood sugar has been running high greater than 200s over the last week. She denies fever, chills, abdominal pain, pain or burning micturition. PMHx: Hypertension, diabetes mellitus PSHx: No significant history Family history: Noncontributory Social history: Denies smoking, alcohol, recreational drug use. Lives in house with family, full code. Home medication: Lantus, losartan Allergic history: Known allergies ROS: Constitutional: Denies weight loss, fever and chills. HEENT: Denies changes in vision and hearing. Respiratory: Shortness of breadth, congestion, productive cough Cardiovascular: Denies chest discomfort or palpitations GI: Nausea, vomiting, diarrhea. Denies abdominal pain : Denies dysuria and urinary frequency. Musculoskeletal: Denies myalgias and joint pain Skin: Denies rash and pruritus. Neurological: Denies dizziness, headache, vision or hearing problems 06/15/2025: She reports that the shortness of breath, cough, chest pain has subsided. Reports that the headache has come down. Pending coronary angiogram with left heart catheterization when renal function has improved. 06/16/25: She has taken for cardiac stress test today. We will continue monitoring and managing. 06/17/2025: Patient was seen at bedside today. She is complaining of 5/10 headache. Cardiac stress test equivocal, fixed inferolateral wall defect seen. Cardiology recommended coronary angiogram, scheduled for tomorrow. Objective vital signs Vital Sign Date Time Temp Pulse Resp B/P (MAP) Pulse Ox O2 Delivery O2 Flow Rate FiO2 06/17/25 08:34 81 126/82 06/17/25 08:27 98.6 17 95 98.6 06/17/25 07:50 Room Air* 0 21 Total Intake and Output 06/16/25 06/16/25 06/17/25 15:00 23:00 07:00 Intake Total 50 ml 950 ml 400 ml Balance 50 ml 950 ml 400 ml medications Current Medications Medications Dose Ordered Sig/Anil Route Start Time Stop Time Status Last Admin Dose Admin Albuterol 2.5 mg Q6HPRN PRN NEB 06/11/25 04:15 Cancel Ceftriaxone Sodium 50 ml @ 100 mls/hr DAILY@09 IV 06/12/25 09:00 06/17/25 08:32 100 MLS/HR Azithromycin 250 ml @ 125 mls/hr DAILY IV 06/12/25 10:00 06/17/25 08:33 125 MLS/HR Hydralazine HCl 10 mg Q6HP PRN IV 06/11/25 04:15 06/13/25 01:02 10 MG Ipratropium [place] 0.5 mg Q6HPRN PRN NEB 06/11/25 04:15 Cancel Acetaminophen/ Hydrocodone Bitart 1 tab Q4HP PRN PO 06/11/25 04:15 06/17/25 02:27 1 TAB Temazepam 15 mg QHSP PRN PO 06/11/25 04:15 06/14/25 22:10 15 MG Ondansetron HCl 4 mg Q4HP PRN IV 06/11/25 04:15 06/14/25 20:46 4 MG Guaifenesin/ Dextromethorphan 10 ml Q4HP PRN PO 06/11/25 04:15 Dextrose 50 ml UD PRN IV 06/11/25 10:45 Cancel Furosemide 40 mg DAILY IV 06/12/25 10:00 06/17/25 08:33 40 MG Diagnostic Test (Pha) 1 strip ACHS 06/11/25 17:00 06/17/25 06:08 1 STRIP Insulin Human Regular HS SC 06/11/25 22:00 06/16/25 21:43 3 UNITS Insulin Human Regular AC SC 06/11/25 17:00 06/17/25 06:08 3 UNITS Dextrose 50 ml UD PRN IV 06/11/25 14:30 Ergocalciferol 50,000 unit Q7D PO 06/11/25 16:00 06/11/25 18:05 50,000 UNIT Famotidine 20 mg DAILY@0700 PO 06/12/25 07:00 06/17/25 06:14 20 MG Insulin Glargine 20 units BID SC 06/12/25 22:00 Hold 06/15/25 22:44 20 UNITS Acetaminophen 650 mg Q4HP PRN PO 06/12/25 12:30 06/13/25 10:51 650 MG Ferrous Sulfate 325 mg DAILY PO 06/13/25 10:00 06/17/25 08:34 325 MG Aspirin 81 mg DAILY PO 06/13/25 10:00 06/17/25 08:35 81 MG Atorvastatin Calcium 80 mg HS PO 06/12/25 22:00 06/16/25 21:36 80 MG Carvedilol 3.125 mg Q12HR PO 06/13/25 22:00 06/17/25 08:34 3.125 MG Acetaminophen 650 mg Q6HP PO 06/13/25 18:00 06/17/25 06:13 650 MG Sodium Chloride 1,000 ml @ 60 mls/hr [id number] IV 06/14/25 10:30 06/17/25 05:10 60 MLS/HR Acetylcysteine 1,200 mg BID PO 06/17/25 10:00 06/19/25 09:59 Examination General: Patient alert and oriented in person, place and time. Patient following commands. HEENT: Normocephalic, atraumatic, moist mucous membranes Respiratory/pulmonary: Clear lungs bilaterally, vesicular murmurs present in almost all lung lobo, no associated crackles or wheezes. Cardiovascular: Normal heart sounds S1 and S2 with no associated murmurs Abdomen: Soft abdomen. No masses palpated, soft abdomen without guarding. Extremities: There is no peripheral edema present at the lower extremities. Peripheral Pulses: 3+ Radial (R). 3+ Radial (L). 3+ Dorsalis pedis (R). 3+ Dorsalis pedis(L) Skin: No rashes or pruritus, there is no sacral edema present at this time. Neurological: Intact cranial nerves no focal neurological deficits. laboratory and microbiology Laboratory Tests 06/17/25 05:41 Test 06/17/25 05:41 Range/Units Serum Glucose 152 H 74-106 mg/dL Microbiology Date/Time Source Procedure Growth Status 06/13/25 13:38 Sputum Gram Stain - Final Resulted 06/13/25 13:38 Sputum Respiratory Culture - Preliminary Resulted 06/11/25 00:23 Blood Blood Culture - Final NO GROWTH AFTER 5 DAYS OF INCUBATION. Complete Problem List/Assessment/Plan Problem List/Assessment/Plan Sepsis due to Community-acquired pneumonia due to Gram-negative, Gram-positive bacteria, improving Lactic acid WNL. Ordered blood culture, sputum culture Continue IV ceftriaxone, azithromycin Holding off IV fluids in context of possible heart failure Med treatment with albuterol, ipratropium given Diastolic Congestive heart failure NSTEMI type 1 vs type 2 Hypertensive emergency, resolving Pertinent family history of cardiovascular disease Echocardiogram shows LVEF 55% BNP elevated likely due to kidney disease Cardiology on board. Patient taken in for stress test today considering elevated creatinine. Cardiac stress test equivocal, fixed inferolateral wall defect seen. Cardiology recommended coronary angiogram, scheduled for tomorrow. Insulin-dependent diabetes mellitus type 2, uncontrolled A1c> 14 Simple hyperglycemia High serum osmolarity A1c more than 14 Started on sliding scale insulin, basal Lantus Discontinued methylprednisolone in context of persistently high hyperglycemia; no indications to continue Acute on chronic renal failure stage 2 hemodynamically mediated (VMN) Nephrotic syndrome, likely due to diabetic nephropathy Normocytic, normochromic anemia, likely due to above Mild hyponatremia, resolving Avoid nephrotoxins Low salt diet, oral hydration Holding off IV fluids in context of possible heart failure Repeat BMP Nephrology on board, recommended IV Lasix, strict I&O, renal diet Cardiology on board, cardiac angiogram planned. Patient on telemetry monitoring Continue carvedilol, continue amlodipine daily; lisinopril discontinued. Insomnia Continue Tenazepam Obesity class 1 Dyslipidemia Hemorrhagic stroke, ruled out CT negative for acute abnormality. DIET: Consistent carb with sodium restriction diet DVT PROPHYLAXIS: SCD, patient ambulatory GI PROPHYLAXIS: Pepcid in context of low GFR CODE STATUS: Goals of care discussed with patient at bedside for more than 18 minutes. Full code DISPOSITION: Telemetry Patient's status and plan discussed with the patient. Case discussed with Dr. Mcneal Plan discussed with: Patient, Other (Nurses) My Orders My Orders Orders - ROSY LOU RESIDENT Procedure Category Date Status Time Consistent DIET 06/16/25 Transmitted Carb(Ccho)Diabetes Dinner Dietary Evaluation Review Recommendations by RD: Dietary education by RD Comments: 1) Add 45g CCHO cardiac restriction to renal diet 2) Encourage PO intake 3) Refer to outpatient RD/CDCES for diabetes education 4) Follow-up with cardiology, nephrology 5) Continue to monitor I&O, labs, and skin integrity Expected Outcomes/Goals: 1) appetite and labs to improve 2) f/u in 3-5 days Date of Service: Jun 17, 2025 Billing Provider: HARISH MCNEAL MD Common Visit Codes: [id number] INP/OBS CARE(HIGH) ROSY LOU RESIDENT Jun 17, 2025 09:36 HARISH MCNEAL MD Jun 19, 2025 15:21
--- NOTE | 2025-06-17 10:43 | DVHPN2 ---
Progress Note Date Seen: Jun 17, 2025 Resident Creating Document: ESTRELLA RILEY RESDIENT Medical Necessity Reason Pt with a Central, PICC or Fol: No Subjective Review of Systems Examined at the bedside. Patient is feeling better since admission, but still complaining of headache. Patient reports: No new complaints Other Systems: Patient seen and examined by myself today in rounds with the medicine resident, I agree with the assessment and plan Objective vital signs Vital Sign Date Time Temp Pulse Resp B/P (MAP) Pulse Ox O2 Delivery O2 Flow Rate FiO2 06/17/25 08:34 81 126/82 06/17/25 08:27 98.6 17 95 98.6 06/17/25 07:50 Room Air* 0 21 Total Intake and Output 06/16/25 06/16/25 06/17/25 15:00 23:00 07:00 Intake Total 50 ml 950 ml 400 ml Balance 50 ml 950 ml 400 ml medications Current Medications Medications Dose Ordered Sig/Anil Route Start Time Stop Time Status Last Admin Dose Admin Albuterol 2.5 mg Q6HPRN PRN NEB 06/11/25 04:15 Cancel Ceftriaxone Sodium 50 ml @ 100 mls/hr DAILY@09 IV 06/12/25 09:00 06/17/25 08:32 100 MLS/HR Azithromycin 250 ml @ 125 mls/hr DAILY IV 06/12/25 10:00 06/17/25 08:33 125 MLS/HR Hydralazine HCl 10 mg Q6HP PRN IV 06/11/25 04:15 06/13/25 01:02 10 MG Ipratropium [place] 0.5 mg Q6HPRN PRN NEB 06/11/25 04:15 Cancel Acetaminophen/ Hydrocodone Bitart 1 tab Q4HP PRN PO 06/11/25 04:15 06/17/25 02:27 1 TAB Temazepam 15 mg QHSP PRN PO 06/11/25 04:15 06/14/25 22:10 15 MG Ondansetron HCl 4 mg Q4HP PRN IV 06/11/25 04:15 06/14/25 20:46 4 MG Guaifenesin/ Dextromethorphan 10 ml Q4HP PRN PO 06/11/25 04:15 Dextrose 50 ml UD PRN IV 06/11/25 10:45 Cancel Furosemide 40 mg DAILY IV 06/12/25 10:00 06/17/25 08:33 40 MG Diagnostic Test (Pha) 1 strip ACHS 06/11/25 17:00 06/17/25 06:08 1 STRIP Insulin Human Regular HS SC 06/11/25 22:00 06/16/25 21:43 3 UNITS Insulin Human Regular AC SC 06/11/25 17:00 06/17/25 06:08 3 UNITS Dextrose 50 ml UD PRN IV 06/11/25 14:30 Ergocalciferol 50,000 unit Q7D PO 06/11/25 16:00 06/11/25 18:05 50,000 UNIT Famotidine 20 mg DAILY@0700 PO 06/12/25 07:00 06/17/25 06:14 20 MG Insulin Glargine 20 units BID SC 06/12/25 22:00 Hold 06/15/25 22:44 20 UNITS Acetaminophen 650 mg Q4HP PRN PO 06/12/25 12:30 06/13/25 10:51 650 MG Ferrous Sulfate 325 mg DAILY PO 06/13/25 10:00 06/17/25 08:34 325 MG Aspirin 81 mg DAILY PO 06/13/25 10:00 06/17/25 08:35 81 MG Atorvastatin Calcium 80 mg HS PO 06/12/25 22:00 06/16/25 21:36 80 MG Carvedilol 3.125 mg Q12HR PO 06/13/25 22:00 06/17/25 08:34 3.125 MG Acetaminophen 650 mg Q6HP PO 06/13/25 18:00 06/17/25 06:13 650 MG Sodium Chloride 1,000 ml @ 60 mls/hr [id number] IV 06/14/25 10:30 06/17/25 05:10 60 MLS/HR Acetylcysteine 1,200 mg BID PO 06/17/25 10:00 06/19/25 09:59 Examination General Appearance: Alert, Oriented X3, Cooperative, No acute distress HEENT: Atraumatic, PERRLA, EOMI, Mucous membrane moist/pink Respiratory: Bilateral crackles Cardiovascular: Regular rate, Normal S1, Normal S2, No murmurs, no chest wall tenderness Abdominal: Normal bowel sounds, Soft, No tenderness, No hepatospenomegaly, No masses Extremities: Bilateral grade 1 pedal edema Skin: No rashes, No breakdown, No significant lesion Neuro: Normal gait, Normal speech, Strength at 5/5 X4 ext, Normal tone, Sensation intact, Cranial nerves 3-12 NL, Reflexes 2+ Psych/Mental Status: Mental status NL, Mood NL Examination: LUNGS:Normal, CVS:Normal, MSK:Normal laboratory and microbiology Laboratory Tests 06/17/25 05:41 Test 06/17/25 05:41 Range/Units Serum Glucose 152 H 74-106 mg/dL Microbiology Date/Time Source Procedure Growth Status 06/13/25 13:38 Sputum Gram Stain - Final Resulted 06/13/25 13:38 Sputum Respiratory Culture - Preliminary Resulted 06/11/25 00:23 Blood Blood Culture - Final NO GROWTH AFTER 5 DAYS OF INCUBATION. Complete Labs and/or images reviewed: Labs reviewed by me, Image(s) reviewed by me Problem List/Assessment/Plan Problem List/Assessment/Plan This is a 39-year-old lady with past medical history of diabetes, hypertension, diabetic foot came to the hospital due to shortness of breaths and cough. Nephrology consulted for NONI. Assessment: NONI, on CKD, secondary to hemodynamic mediated Mild hyponatremia due to excess H2O Congestive heart failure exacerbation NSTEMI Diabetes type 2 with hyperglycemia Mild anemia Hypertensive Emergency Chronic NSAIDs use Obesity Nephrotic syndrome likely due to diabetic nephropathy Plan/recommendation: (Dr. Vasquez) * IV Lasix 40 mg daily * Continue Amlodopine 10mg daily, start Carvidilol 6.25mg BID, DC lisinopril * IV fluid for LHC to minimize nephrotoxicity: 100ml NS/hr 6hr prior to cath and then continue for 18hr after cath with Lasix 80mg IV push immediately following cardiac catheterization * Core Fitter to use the lowest IV contrast volume with the procedure * Strict I&Os, avoid nephrotoxic drugs * Ergocalciferol 91638 q.week * Renal diet * We will follow up with the patient Thank you for giving us the opportunity to take care of your patient. Please call back if you have any questions/concerns. Plan discussed with: Patient, Other (RN) Dietary Evaluation Review Recommendations by RD: Dietary education by RD Comments: 1) Add 45g CCHO cardiac restriction to renal diet 2) Encourage PO intake 3) Refer to outpatient RD/CDCES for diabetes education 4) Follow-up with cardiology, nephrology 5) Continue to monitor I&O, labs, and skin integrity Expected Outcomes/Goals: 1) appetite and labs to improve 2) f/u in 3-5 days ESTRELLA RILEY Jun 17, 2025 10:43 DEUCE VASQUEZ MD Jun 17, 2025 11:01
[2025-06-17] MEDS: ACETYLCYSTEINE ORAL for CIN 20%(200MG/ML) 4ML PO SCH (10:55)
--- NOTE | 2025-06-17 16:40 | DVH ---
CHEST RADIOGRAPH Indication: PRE PROCEDURE Technique: Single frontal view of the chest was obtained Comparison: XY CHEST XRAY 1 VIEW on DOS: 06/13/25, XY CHEST PORTABLE on DOS: 06/11/25 FINDINGS: Lines and Tubes: None Lungs: Resolved bibasilar opacities when compared to 06/13/2025. Pleura: No effusion. No pneumothorax. Cardiomediastinal contours: Unremarkable Bones: No acute osseous abnormality. IMPRESSION: 1. No acute cardiopulmonary disease. 2. Resolved bibasilar opacities when compared to 06/13/2025.
--- NOTE | 2025-06-17 23:59 | DVHPN2 ---
Consult Progress Note Date Seen: Jun 17, 2025 Subjective Review of Systems: CVS:Normal, RESPIRATORY:Normal, NEURO:Normal Other Systems: Patient was seen and evaluated in follow up. Patient complains of a headache. 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 Telemetry reviewed. Objective vital signs Vital Sign Date Time Temp Pulse Resp B/P (MAP) Pulse Ox O2 Delivery O2 Flow Rate FiO2 06/17/25 12:39 97.9 85 17 127/80 (96) 98 97.9 06/17/25 07:50 Room Air* 0 21 Total Intake and Output 06/16/25 06/16/25 06/17/25 15:00 23:00 07:00 Intake Total 50 ml 950 ml 400 ml Balance 50 ml 950 ml 400 ml medications Current Medications Medications Dose Ordered Sig/Anil Route Start Time Stop Time Status Last Admin Dose Admin Albuterol 2.5 mg Q6HPRN PRN NEB 06/11/25 04:15 Cancel Ceftriaxone Sodium 50 ml @ 100 mls/hr DAILY@09 IV 06/12/25 09:00 06/17/25 08:32 100 MLS/HR Azithromycin 250 ml @ 125 mls/hr DAILY IV 06/12/25 10:00 06/17/25 08:33 125 MLS/HR Hydralazine HCl 10 mg Q6HP PRN IV 06/11/25 04:15 06/13/25 01:02 10 MG Ipratropium [place] 0.5 mg Q6HPRN PRN NEB 06/11/25 04:15 Cancel Acetaminophen/ Hydrocodone Bitart 1 tab Q4HP PRN PO 06/11/25 04:15 06/17/25 02:27 1 TAB Temazepam 15 mg QHSP PRN PO 06/11/25 04:15 06/14/25 22:10 15 MG Ondansetron HCl 4 mg Q4HP PRN IV 06/11/25 04:15 06/14/25 20:46 4 MG Guaifenesin/ Dextromethorphan 10 ml Q4HP PRN PO 06/11/25 04:15 Dextrose 50 ml UD PRN IV 06/11/25 10:45 Cancel Furosemide 40 mg DAILY IV 06/12/25 10:00 06/17/25 08:33 40 MG Diagnostic Test (Pha) 1 strip ACHS 06/11/25 17:00 06/17/25 10:55 1 STRIP Insulin Human Regular HS SC 06/11/25 22:00 06/16/25 21:43 3 UNITS Insulin Human Regular AC SC 06/11/25 17:00 06/17/25 10:55 3 UNITS Dextrose 50 ml UD PRN IV 06/11/25 14:30 Ergocalciferol 50,000 unit Q7D PO 06/11/25 16:00 06/11/25 18:05 50,000 UNIT Famotidine 20 mg DAILY@0700 PO 06/12/25 07:00 06/17/25 06:14 20 MG Insulin Glargine 20 units BID SC 06/12/25 22:00 Hold 06/15/25 22:44 20 UNITS Acetaminophen 650 mg Q4HP PRN PO 06/12/25 12:30 06/13/25 10:51 650 MG Ferrous Sulfate 325 mg DAILY PO 06/13/25 10:00 06/17/25 08:34 325 MG Aspirin 81 mg DAILY PO 06/13/25 10:00 06/17/25 08:35 81 MG Atorvastatin Calcium 80 mg HS PO 06/12/25 22:00 06/16/25 21:36 80 MG Carvedilol 3.125 mg Q12HR PO 06/13/25 22:00 06/17/25 08:34 3.125 MG Acetaminophen 650 mg Q6HP PO 06/13/25 18:00 06/17/25 10:53 650 MG Sodium Chloride 1,000 ml @ 60 mls/hr [id number] IV 06/14/25 10:30 06/17/25 05:10 60 MLS/HR Acetylcysteine 1,200 mg BID PO 06/17/25 10:00 06/19/25 09:59 06/17/25 10:55 1,200 MG Examination: GENERAL:Abnormal (+Anasarca), HEENT:Normal, NECK:Normal, LUNGS:Abnormal (Bilateral crackles), CVS:Normal, ABDOMEN:Normal, MSK:Normal, NEURO:Normal laboratory and microbiology Laboratory Tests 06/17/25 05:41 Test 06/17/25 05:41 Range/Units Serum Glucose 152 H 74-106 mg/dL Problem List/Assessment/Plan Problem List/Assessment/Plan Problem List/Assessment/Plan Sepsis with PNA. NSTEMI, questionable Type I. Acute on chronic decompensated HFpEF, NYHA class II. Pertinent family history for cardiovascular disease. Type 2 diabetes mellitus, uncontrolled (A1c >14%). Hypertensive urgency. Dyslipidemia, newly diagnosed. Acute kidney injury. Obesity. Plan/Recommendations Continued all current supportive medical care. Patient has been seen by Rona Petersen NP on my behalf. We have discussed the plan with the patient. Transthoracic echocardiogram reveals an EF of 55%. Liborio protocol with Cardiolite stress test: Fixed inferolateral wall defect. Can not exclude TID which can represent CAD. Twelve lead electrocardiogram revealed a normal sinus rhythm with T-wave inversion to lateral leads. Troponin levels peaked at 157 ng/L. Cardiac asymptomatic. Given treadmill cardiolite stress test findings, scheduled for a cardiac catheterization and coronary angiogram with Dr. Portillo on 06/18/2025. All risks and benefits of the procedure were discussed with the patient including risk for CARMEN and possible HD. She agrees to proceed with intervention. All questions answered. In the meantime, continue aggressive blood pressure control, single-antiplatelet therapy, and lipid-lowering agent. Continue Nephrology recommendations including strict intake/output, daily weights, & low sodium diet. Strongly counseled on diet, exercise, tight glycemic control, and medical compliance. Further orders per clinical course. Additional plan as per the hospital course. Plan discussed with: Patient Dietary Evaluation Review Recommendations by RD: Dietary education by RD Comments: 1) Add 45g CCHO cardiac restriction to renal diet 2) Encourage PO intake 3) Refer to outpatient RD/CDCES for diabetes education 4) Follow-up with cardiology, nephrology 5) Continue to monitor I&O, labs, and skin integrity Expected Outcomes/Goals: 1) appetite and labs to improve 2) f/u in 3-5 days Date of Service: Jun 17, 2025 Billing Provider: GABY PIEDRA MD Cardiology Common Codes: 87308-FZKLOLYNOO HOSP CARE(High GABY PIEDRA MD Jun 17, 2025 15:24
[2025-06-18] VITALS (14 sets, daily range): BP systolic 128–157; BP diastolic 80–94; PULSE 76–87; RESP 12–18; TEMP 97.6–98.6; O2SAT 94–99
[2025-06-18 06:26] LABS: Hematocrit 37.6 % (36.0-46.0); Hemoglobin 12.3 g/dL (12.2-16.2); Mean Corpuscular Hemoglobin 27.1 pg (28.0-32.0); Mean Corpuscular Volume 82.7 fL (80.0-100.0); Nucleated Red Blood Cells % 0.0 %
[2025-06-18 06:33] LABS: Anion Gap 6 (5-15); Calcium 9.0 mg/dL (8.7-10.4); Carbon Dioxide 26 mmol/L (20-31); Chloride 104 mmol/L (98-107); Potassium 4.8 mmol/L (3.5-5.1)
[2025-06-18 06:39] LABS: BUN/Creatinine Ratio 13.9 (10.0-20.0)
[2025-06-18 06:40] LABS: Blood Urea Nitrogen 31 mg/dL (9-23); Glucose 176 mg/dL (74-106); Sodium 136 mmol/L (136-145)
[2025-06-18 06:55] LABS: INR 1.03 (0.9-1.15); Partial Thromboplastin Time 27.6 SEC (24.5-34.5); Prothrombin Time 10.9 sec (9.3-11.8)
[2025-06-18] MEDS: SODIUM CHLORIDE 0.9% 1,000 ML IV SCH (07:29)
[2025-06-18] MEDS: IODIXANOL 320MG/ML 100ML BTL IV ONE (09:38)
[2025-06-18] MEDS: HEPARIN SODIUM (PORCINE) 5000 UNITS/ML 1ML VIAL ONE (09:49)
[2025-06-18] MEDS: ANGIOMAX 250 MG VIAL IV ONE (09:49)
[2025-06-18] MEDS: VERAPAMIL 2.5MG/ML INJ 2ML VIAL IV ONE (09:49)
[2025-06-18] MEDS: LIDOCAINE 2%HCL (LOCAL ANESTH.) INJ 20ML MDV ONE (09:50)
[2025-06-18] MEDS: MIDAZOLAM HCL 2MG/2ML 2ml VIAL (1mg/ml) ONE (09:50)
[2025-06-18] MEDS: SODIUM CHL 0.9% 50 ML ONE (09:50)
[2025-06-18] MEDS: fentaNYL CITRATE 100 MCG/2 ML VL ONE (09:50)
[2025-06-18] MEDS: CLOPIDOGREL BISULFATE 75 MG TAB ONE (10:45)
--- NOTE | 2025-06-18 10:48 | DVHOP2 ---
Operative Report - 2 Report Details Date: 06/18/25 Preop Diagnosis: CAD Postop Diagnosis: CAD Surgeon: Izabella Portillo MD Anesthesiologist: Conscious sedation Anesthesia: Mac, Local Consent: The patient was informed of the risks and benefits of the procedure. These include but are not limited to complications of anesthesia, postoperative infection, incomplete relief of symptoms, recurrence of symptoms, damage to blood vessels, nerves and tendons, deep venous thrombosis, pulmonary embolism and possible need for repeat surgery in the future. Complications: No complications Findings: Cardiomyopathy, stenotic circumflex coronary artery Indications for Surgery: Congestive heart failure. Abnormal troponins. Chest pain. Name of Procedure Performed Left heart catheterization. Bilateral cine coronary angiography. Left ventriculography. PTCA and stenting of the circumflex coronary artery. Fractional flow reserve evaluation of the left anterior descending coronary artery. Procedure Details Procedure Details: Prior local anesthesia with 2% lidocaine to the right wrist and full informed consent obtained patient was prepped and draped in the usual fashion followed by placement of a six [place] sheath into the radial artery through which a six [place] multipurpose catheter was used for ventriculography and cannulation of both right and left coronary ostia. A three five EBU guide was then used for angioplasty of the circumflex. No complications. Hemodynamics: Aortic blood pressure was 110/70. End-diastolic pressure was eight. There was no gradient across the aortic valve on pullback. Coronary anatomy: RCA is a large vessel. It has no stenosis in its proximal mid or distal segments. The PDA in the posterolateral branches are normal. Left main is large and normal. Left anterior descending is a large vessel it has a proximal 40-50% stenosis. FFR revealed a stenosis of point eight nine. This is indicative of mild CAD. Diagonals and septals are normal. The circumflex is a large vessel it has a mid 95% stenosis. Proximal and distal segments are free of significant disease. Ventriculography in the HUTCHISON projection shows an EF of 35% with global hypokinesis and LV enlargement. Angioplasty was performed of the circumflex coronary artery. A three five EBU guide was then placed into the left main Specter wire across the area of stenosis followed by placement a 2.5 mm balloon. This was dilated at a proximally 10 atmospheres. We then placed in brook Medtronic 3.0 x 12 drug- eluting stent at a proximally 13 atmospheres. There was excellent antegrade flow without thrombus formation and/or dissection. Impression: Normal left ventricular end-diastolic pressure at rest with mild to severe CAD of the circumflex and LAD. Decreased left ventricular ejection fraction at approximately 35% with a dilated left ventricle. Successful PTCA and stenting of the circumflex coronary artery and FFR evaluation of the LAD Recommendations: Dual antiplatelet therapy. Risk factor modification. Afterload reduction. BP control Condition Good Disposition Still a Patient Date of Service: Jun 18, 2025 Billing Provider: IZABELLA PORTILLO Sr., MD Cardiology Common Codes: 74522-[id number] INP/OBS CARE (High) Cardiology Procedure Codes: 57615 -PTCA W/STENT PLACEMENT, 18692-UCGN HEART CATH W/INTRA INJ IZABELLA PORTILLO Sr., MD Jun 18, 2025 10:48
--- NOTE | 2025-06-18 11:03 | DVHPN2 ---
Progress Note Date Seen: Jun 18, 2025 Resident Creating Document: ESTRELLA RILEY RESDIENT Medical Necessity Reason Pt with a Central, PICC or Fol: No Subjective Review of Systems Examined at the bedside. Patient is feeling better since admission, but still complaining of headache.General Appearance: Alert, Oriented X3, Cooperative, No acute distress HEENT: Atraumatic, PERRLA, EOMI, Mucous membrane moist/pink Respiratory: Bilateral crackles Cardiovascular: Regular rate, Normal S1, Normal S2, No murmurs, no chest wall tenderness Abdominal: Normal bowel sounds, Soft, No tenderness, No hepatospenomegaly, No masses Extremities: Bilateral grade 1 pedal edema Skin: No rashes, No breakdown, No significant lesion Neuro: Normal gait, Normal speech, Strength at 5/5 X4 ext, Normal tone, Sensation intact, Cranial nerves 3-12 NL, Reflexes 2+ Psych/Mental Status: Mental status NL, Mood NL Other Systems: Patient seen and examined by myself today on rounds with the medicine resident, I agree with the assessment and plan Objective vital signs Vital Sign Date Time Temp Pulse Resp B/P (MAP) Pulse Ox O2 Delivery O2 Flow Rate FiO2 06/18/25 08:32 98.1 79 16 128/89 (102) 96 98.1 06/18/25 07:40 Room Air* 0 21 Total Intake and Output 06/17/25 06/17/25 06/18/25 15:00 23:00 07:00 Intake Total 250 ml 820 ml 875 ml Balance 250 ml 820 ml 875 ml medications Current Medications Medications Dose Ordered Sig/Anil Route Start Time Stop Time Status Last Admin Dose Admin Albuterol 2.5 mg Q6HPRN PRN NEB 06/11/25 04:15 Cancel Ceftriaxone Sodium 50 ml @ 100 mls/hr DAILY@09 IV 06/12/25 09:00 06/17/25 08:32 100 MLS/HR Azithromycin 250 ml @ 125 mls/hr DAILY IV 06/12/25 10:00 06/17/25 08:33 125 MLS/HR Hydralazine HCl 10 mg Q6HP PRN IV 06/11/25 04:15 06/13/25 01:02 10 MG Ipratropium [place] 0.5 mg Q6HPRN PRN NEB 06/11/25 04:15 Cancel Acetaminophen/ Hydrocodone Bitart 1 tab Q4HP PRN PO 06/11/25 04:15 06/17/25 02:27 1 TAB Temazepam 15 mg QHSP PRN PO 06/11/25 04:15 06/14/25 22:10 15 MG Ondansetron HCl 4 mg Q4HP PRN IV 06/11/25 04:15 06/14/25 20:46 4 MG Guaifenesin/ Dextromethorphan 10 ml Q4HP PRN PO 06/11/25 04:15 Dextrose 50 ml UD PRN IV 06/11/25 10:45 Cancel Furosemide 40 mg DAILY IV 06/12/25 10:00 06/17/25 08:33 40 MG Diagnostic Test (Pha) 1 strip ACHS 06/11/25 17:00 06/18/25 06:01 1 STRIP Insulin Human Regular HS SC 06/11/25 22:00 06/17/25 21:11 3 UNITS Insulin Human Regular AC SC 06/11/25 17:00 06/18/25 06:01 3 UNITS Dextrose 50 ml UD PRN IV 06/11/25 14:30 Ergocalciferol 50,000 unit Q7D PO 06/11/25 16:00 06/11/25 18:05 50,000 UNIT Famotidine 20 mg DAILY@0700 PO 06/12/25 07:00 06/17/25 06:14 20 MG Insulin Glargine 20 units BID SC 06/12/25 22:00 Hold 06/15/25 22:44 20 UNITS Acetaminophen 650 mg Q4HP PRN PO 06/12/25 12:30 06/13/25 10:51 650 MG Ferrous Sulfate 325 mg DAILY PO 06/13/25 10:00 06/17/25 08:34 325 MG Aspirin 81 mg DAILY PO 06/13/25 10:00 06/17/25 08:35 81 MG Atorvastatin Calcium 80 mg HS PO 06/12/25 22:00 06/17/25 21:04 80 MG Carvedilol 3.125 mg Q12HR PO 06/13/25 22:00 06/17/25 21:05 3.125 MG Acetaminophen 650 mg Q6HP PO 06/13/25 18:00 06/17/25 16:57 650 MG Acetylcysteine 1,200 mg BID PO 06/17/25 10:00 06/19/25 09:59 06/17/25 21:05 1,200 MG Sodium Chloride 1,000 ml @ 100 mls/hr Q10H IV 06/18/25 07:00 06/18/25 07:29 100 MLS/HR Examination: LUNGS:Normal, CVS:Normal, MSK:Normal laboratory and microbiology Laboratory Tests 06/18/25 05:50 Test 06/18/25 05:50 Range/Units Serum Glucose 176 H 74-106 mg/dL Microbiology Date/Time Source Procedure Growth Status 06/13/25 13:38 Sputum Gram Stain - Final Complete 06/13/25 13:38 Sputum Respiratory Culture - Final Complete 06/11/25 00:23 Blood Blood Culture - Final NO GROWTH AFTER 5 DAYS OF INCUBATION. Complete Labs and/or images reviewed: Labs reviewed by me, Image(s) reviewed by me Problem List/Assessment/Plan Problem List/Assessment/Plan NONI, on CKD, secondary to hemodynamic mediated Mild hyponatremia due to excess H2O Congestive heart failure exacerbation NSTEMI Diabetes type 2 with hyperglycemia Mild anemia Hypertensive Emergency Chronic NSAIDs use Obesity Nephrotic syndrome likely due to diabetic nephropathy Plan/recommendation: (Dr. Vasquez) * IV Lasix 40 mg daily * Continue Amlodopine 10mg daily, start Carvidilol 6.25mg BID, DC lisinopril * IV fluid for LHC to minimize nephrotoxicity: 100ml NS/hr 6hr prior to cath and then continue for 18hr after cath with Lasix 80mg IV push immediately following cardiac catheterization * Patient Navigator to use the lowest IV contrast volume with the procedure * Strict I&Os, avoid nephrotoxic drugs * Ergocalciferol 59426 q.week * Renal diet * Patient will follow with Dr. Vasquez at office * We will follow up with the patient Thank you for giving us the opportunity to take care of your patient. Please call back if you have any questions/concerns. Plan discussed with: Patient, Other (RN) Dietary Evaluation Review Recommendations by RD: Dietary education by RD Comments: 1) Add 45g CCHO cardiac restriction to renal diet 2) Encourage PO intake 3) Refer to outpatient RD/CD[facility] for diabetes education 4) Follow-up with cardiology, nephrology 5) Continue to monitor I&O, labs, and skin integrity Expected Outcomes/Goals: 1) appetite and labs to improve 2) f/u in 3-5 days ESTRELLA RILEY Jun 18, 2025 11:03 DEUCE VASQUEZ MD Jun 18, 2025 11:59
--- NOTE | 2025-06-18 16:50 | DVHPNRES ---
Progress Note Date Seen: Jun 18, 2025 Resident Creating Document: ROSY LOU RESIDENT Medical Necessity Reason Pt with a Central, PICC or Fol: No Subjective Review of Systems Brief history on arrival: This is a 39-year-old female with past medical history of hypertension, diabetes, presented to the ER with chief complain of shortness of breaths, congestion and productive cough. Patient endorses a four day history of worsening shortness for breath with associated productive cough, with sputum white in color. Shortness of breaths is present at rest. She also complained of nausea, vomiting, diarrhea since last week. She reported feeling nauseous early in the morning, followed by vomiting episode she had 1 episode of watery emesis every day since last 1 week, no hematemesis reported. Her diarrhea resolved 3 days back, complains of dowling colored stools now. She also complains of associated headache, dizziness since last 1 week. She also reports her blood sugar has been running high greater than 200s over the last week. She denies fever, chills, abdominal pain, pain or burning micturition. PMHx: Hypertension, diabetes mellitus PSHx: No significant history Family history: Noncontributory Social history: Denies smoking, alcohol, recreational drug use. Lives in house with family, full code. Home medication: Lantus, losartan Allergic history: Known allergies ROS: Constitutional: Denies weight loss, fever and chills. HEENT: Denies changes in vision and hearing. Respiratory: Shortness of breadth, congestion, productive cough Cardiovascular: Denies chest discomfort or palpitations GI: Nausea, vomiting, diarrhea. Denies abdominal pain : Denies dysuria and urinary frequency. Musculoskeletal: Denies myalgias and joint pain Skin: Denies rash and pruritus. Neurological: Denies dizziness, headache, vision or hearing problems 06/15/2025: She reports that the shortness of breath, cough, chest pain has subsided. Reports that the headache has come down. Pending coronary angiogram with left heart catheterization when renal function has improved. 06/16/25: She has taken for cardiac stress test today. We will continue monitoring and managing. 06/17/2025: She is complaining of 5/10 headache. Cardiac stress test equivocal, fixed inferolateral wall defect seen. Cardiology recommended coronary angiogram, scheduled for tomorrow. 06/18/2025: Patient was seen at bedside today. Patient has questions about coronary catheterization, all questions & concerns answered at bedside and procedure explained. Patient was taken in for PCI of left circumflex artery. We will continue to monitor and manage Objective vital signs Vital Sign Date Time Temp Pulse Resp B/P (MAP) Pulse Ox O2 Delivery O2 Flow Rate FiO2 06/18/25 12:00 78 13 132/80 (97) 95 06/18/25 08:32 98.1 98.1 06/18/25 07:40 Room Air* 0 21 Total Intake and Output 06/17/25 06/17/25 06/18/25 15:00 23:00 07:00 Intake Total 250 ml 820 ml 875 ml Balance 250 ml 820 ml 875 ml medications Current Medications Medications Dose Ordered Sig/Anil Route Start Time Stop Time Status Last Admin Dose Admin Albuterol 2.5 mg Q6HPRN PRN NEB 06/11/25 04:15 Cancel Ceftriaxone Sodium 50 ml @ 100 mls/hr DAILY@09 IV 06/12/25 09:00 06/17/25 08:32 100 MLS/HR Azithromycin 250 ml @ 125 mls/hr DAILY IV 06/12/25 10:00 06/17/25 08:33 125 MLS/HR Hydralazine HCl 10 mg Q6HP PRN IV 06/11/25 04:15 06/13/25 01:02 10 MG Ipratropium [place] 0.5 mg Q6HPRN PRN NEB 06/11/25 04:15 Cancel Acetaminophen/ Hydrocodone Bitart 1 tab Q4HP PRN PO 06/11/25 04:15 06/17/25 02:27 1 TAB Temazepam 15 mg QHSP PRN PO 06/11/25 04:15 06/14/25 22:10 15 MG Ondansetron HCl 4 mg Q4HP PRN IV 06/11/25 04:15 06/14/25 20:46 4 MG Guaifenesin/ Dextromethorphan 10 ml Q4HP PRN PO 06/11/25 04:15 Dextrose 50 ml UD PRN IV 06/11/25 10:45 Cancel Furosemide 40 mg DAILY IV 06/12/25 10:00 06/17/25 08:33 40 MG Diagnostic Test (Pha) 1 strip ACHS 06/11/25 17:00 06/18/25 16:18 1 STRIP Insulin Human Regular HS SC 06/11/25 22:00 06/17/25 21:11 3 UNITS Insulin Human Regular AC SC 06/11/25 17:00 06/18/25 16:19 12 UNITS Dextrose 50 ml UD PRN IV 06/11/25 14:30 Ergocalciferol 50,000 unit Q7D PO 06/11/25 16:00 06/18/25 16:18 50,000 UNIT Famotidine 20 mg DAILY@0700 PO 06/12/25 07:00 06/17/25 06:14 20 MG Insulin Glargine 20 units BID SC 06/12/25 22:00 Hold 06/15/25 22:44 20 UNITS Acetaminophen 650 mg Q4HP PRN PO 06/12/25 12:30 06/13/25 10:51 650 MG Ferrous Sulfate 325 mg DAILY PO 06/13/25 10:00 06/17/25 08:34 325 MG Aspirin 81 mg DAILY PO 06/13/25 10:00 06/17/25 08:35 81 MG Atorvastatin Calcium 80 mg HS PO 06/12/25 22:00 06/17/25 21:04 80 MG Carvedilol 3.125 mg Q12HR PO 06/13/25 22:00 06/17/25 21:05 3.125 MG Acetaminophen 650 mg Q6HP PO 06/13/25 18:00 06/17/25 16:57 650 MG Acetylcysteine 1,200 mg BID PO 06/17/25 10:00 06/19/25 09:59 06/17/25 21:05 1,200 MG Sodium Chloride 1,000 ml @ 100 mls/hr Q10H IV 06/18/25 07:00 06/18/25 16:18 100 MLS/HR Clopidogrel Bisulfate 75 mg DAILY PO 06/19/25 10:00 Examination General: Patient alert and oriented in person, place and time. Patient following commands. HEENT: Normocephalic, atraumatic, moist mucous membranes Respiratory/pulmonary: Clear lungs bilaterally, vesicular murmurs present in almost all lung lobo, no associated crackles or wheezes. Cardiovascular: Normal heart sounds S1 and S2 with no associated murmurs Abdomen: Soft abdomen. No masses palpated, soft abdomen without guarding. Extremities: There is no peripheral edema present at the lower extremities. Peripheral Pulses: 3+ Radial (R). 3+ Radial (L). 3+ Dorsalis pedis (R). 3+ Dorsalis pedis(L) Skin: No rashes or pruritus, there is no sacral edema present at this time. Neurological: Intact cranial nerves no focal neurological deficits. laboratory and microbiology Laboratory Tests 06/18/25 05:50 Test 06/18/25 05:50 Range/Units Serum Glucose 176 H 74-106 mg/dL Microbiology Date/Time Source Procedure Growth Status 06/13/25 13:38 Sputum Gram Stain - Final Complete 06/13/25 13:38 Sputum Respiratory Culture - Final Complete 06/11/25 00:23 Blood Blood Culture - Final NO GROWTH AFTER 5 DAYS OF INCUBATION. Complete Problem List/Assessment/Plan Problem List/Assessment/Plan Sepsis due to Community-acquired pneumonia due to Gram-negative, Gram-positive bacteria, improving Lactic acid WNL. Ordered blood culture, sputum culture Continue IV ceftriaxone, azithromycin Holding off IV fluids in context of possible heart failure Med treatment with albuterol, ipratropium given Systolic and Diastolic Congestive heart failure, HFrEF NSTEMI likely type 1 Coronary artery disease, s/p PTCA, circumflex coronary artery stent day 1 Hypertensive emergency, resolving Pertinent family history of cardiovascular disease Coronary catheterization shows EF 35% BNP elevated likely due to kidney disease Cardiology on board. Patient taken in for stress test today considering elevated creatinine. Cardiac stress test equivocal, fixed inferolateral wall defect seen. S/p circumflex stenting day 1 Insulin-dependent diabetes mellitus type 2, uncontrolled A1c> 14 Simple hyperglycemia High serum osmolarity A1c more than 14 Started on sliding scale insulin, basal Lantus Discontinued methylprednisolone in context of persistently high hyperglycemia; no indications to continue Acute on chronic renal failure stage 2 hemodynamically mediated (VMN) Nephrotic syndrome, likely due to diabetic nephropathy Normocytic, normochromic anemia, likely due to above Mild hyponatremia, resolving Avoid nephrotoxins Low salt diet, oral hydration Holding off IV fluids in context of possible heart failure Repeat [facility] Nephrology on board, recommended IV Lasix, strict I&O, renal diet Cardiology on board, cardiac angiogram planned. Patient on telemetry monitoring Continue carvedilol, continue amlodipine daily; lisinopril discontinued. Insomnia Continue Tenazepam Obesity class 1 Dyslipidemia Hemorrhagic stroke, ruled out CT negative for acute abnormality. DIET: Consistent carb with sodium restriction diet DVT PROPHYLAXIS: SCD, patient ambulatory GI PROPHYLAXIS: Pepcid in context of low GFR CODE STATUS: Goals of care discussed with patient at bedside for more than 18 minutes. Full code DISPOSITION: Telemetry Patient's status and plan discussed with the patient. Case discussed with Dr. Mcneal Plan discussed with: Patient, Other (Nurses) My Orders My Orders Orders - ROSY LOU RESIDENT Procedure Category Date Status Time Sodium Chloride 0.9% PHA 06/18/25 In Process 07:00 Cardiac DIET 06/18/25 Transmitted Diet-2gna,Lofat,Lochol Lunch Dietary Evaluation Review Recommendations by RD: Dietary education by RD Comments: 1) Add 45g CCHO cardiac restriction to renal diet 2) Encourage PO intake 3) Refer to outpatient RD/CDCES for diabetes education 4) Follow-up with cardiology, nephrology 5) Continue to monitor I&O, labs, and skin integrity Expected Outcomes/Goals: 1) appetite and labs to improve 2) f/u in 3-5 days Date of Service: Jun 18, 2025 Billing Provider: HARISH MCNEAL MD Common Visit Codes: [id number] INP/OBS CARE(HIGH) ROSY LOU RESIDENT Jun 18, 2025 16:50 CALISTA NICHOLE RESIDENT Jun 18, 2025 18:25 HARISH MCNEAL MD Jun 19, 2025 15:21
[2025-06-18] MEDS: INSULIN LANTUS (GLARGINE) 1 /0.01ml (100units/ml) SC SCH (20:07)
[2025-06-19] VITALS (8 sets, daily range): BP systolic 125–159; BP diastolic 80–97; PULSE 73–83; RESP 16–18; TEMP 96.1–98.8; O2SAT 97–99
[2025-06-19 06:21] LABS: Hemoglobin 11.7 g/dL (12.2-16.2); Nucleated Red Blood Cells % 0.1 %
[2025-06-19 06:25] LABS: Hematocrit 35.4 % (36.0-46.0); Mean Corpuscular Hemoglobin 27.2 pg (28.0-32.0); Mean Corpuscular Volume 82.4 fL (80.0-100.0)
[2025-06-19 06:32] LABS: Potassium 4.7 mmol/L (3.5-5.1); Sodium 140 mmol/L (136-145)
[2025-06-19 06:33] LABS: Anion Gap 7 (5-15); Carbon Dioxide 26 mmol/L (20-31)
[2025-06-19 06:38] LABS: BUN/Creatinine Ratio 11.6 (10.0-20.0)
[2025-06-19 06:51] LABS: Blood Urea Nitrogen 23 mg/dL (9-23); Calcium 8.6 mg/dL (8.7-10.4); Chloride 107 mmol/L (98-107); Glucose 72 mg/dL (74-106)
--- NOTE | 2025-06-19 08:57 | DVHPN2 ---
Progress Note Date Seen: Jun 19, 2025 Resident Creating Document: ESTRELLA RILEY RESDIENT Medical Necessity Reason Pt with a Central, PICC or Fol: No Subjective Review of Systems Examined at the bedside. Patient is feeling better since admission, but still complaining of headache. Patient reports: No new complaints Other Systems: Patient seen and examined by myself today on rounds with the medicine resident, I agree with the assessment and plan Objective vital signs Vital Sign Date Time Temp Pulse Resp B/P (MAP) Pulse Ox O2 Delivery O2 Flow Rate FiO2 06/19/25 05:00 98.7 83 18 146/92 (110) 99 98.7 06/18/25 20:00 Room Air* 0 21 Total Intake and Output 06/18/25 06/18/25 06/19/25 15:00 23:00 07:00 Intake Total 200 ml 600 ml 800 ml Balance 200 ml 600 ml 800 ml medications Current Medications Medications Dose Ordered Sig/Anil Route Start Time Stop Time Status Last Admin Dose Admin Albuterol 2.5 mg Q6HPRN PRN NEB 06/11/25 04:15 Cancel Ceftriaxone Sodium 50 ml @ 100 mls/hr DAILY@09 IV 06/12/25 09:00 06/17/25 08:32 100 MLS/HR Azithromycin 250 ml @ 125 mls/hr DAILY IV 06/12/25 10:00 06/17/25 08:33 125 MLS/HR Hydralazine HCl 10 mg Q6HP PRN IV 06/11/25 04:15 06/13/25 01:02 10 MG Ipratropium [place] 0.5 mg Q6HPRN PRN NEB 06/11/25 04:15 Cancel Acetaminophen/ Hydrocodone Bitart 1 tab Q4HP PRN PO 06/11/25 04:15 06/17/25 02:27 1 TAB Temazepam 15 mg QHSP PRN PO 06/11/25 04:15 06/14/25 22:10 15 MG Ondansetron HCl 4 mg Q4HP PRN IV 06/11/25 04:15 06/14/25 20:46 4 MG Guaifenesin/ Dextromethorphan 10 ml Q4HP PRN PO 06/11/25 04:15 Dextrose 50 ml UD PRN IV 06/11/25 10:45 Cancel Furosemide 40 mg DAILY IV 06/12/25 10:00 06/17/25 08:33 40 MG Diagnostic Test (Pha) 1 strip ACHS 06/11/25 17:00 06/19/25 06:18 1 STRIP Insulin Human Regular AC SC 06/11/25 17:00 06/18/25 16:19 12 UNITS Dextrose 50 ml UD PRN IV 06/11/25 14:30 Ergocalciferol 50,000 unit Q7D PO 06/11/25 16:00 06/18/25 16:18 50,000 UNIT Famotidine 20 mg DAILY@0700 PO 06/12/25 07:00 06/19/25 06:28 20 MG Acetaminophen 650 mg Q4HP PRN PO 06/12/25 12:30 06/18/25 22:21 650 MG Ferrous Sulfate 325 mg DAILY PO 06/13/25 10:00 06/17/25 08:34 325 MG Aspirin 81 mg DAILY PO 06/13/25 10:00 06/17/25 08:35 81 MG Atorvastatin Calcium 80 mg HS PO 06/12/25 22:00 06/18/25 22:22 80 MG Carvedilol 3.125 mg Q12HR PO 06/13/25 22:00 06/18/25 22:22 3.125 MG Acetaminophen 650 mg Q6HP PO 06/13/25 18:00 06/17/25 16:57 650 MG Acetylcysteine 1,200 mg BID PO 06/17/25 10:00 06/19/25 09:59 06/18/25 22:27 1,200 MG Sodium Chloride 1,000 ml @ 100 mls/hr Q10H IV 06/18/25 07:00 06/18/25 16:18 100 MLS/HR Clopidogrel Bisulfate 75 mg DAILY PO 06/19/25 10:00 Insulin Glargine 20 units Q12H SC 06/18/25 19:00 06/18/25 20:07 20 UNITS Examination General Appearance: Alert, Oriented X3, Cooperative, No acute distress HEENT: Atraumatic, PERRLA, EOMI, Mucous membrane moist/pink Respiratory: Bilateral crackles Cardiovascular: Regular rate, Normal S1, Normal S2, No murmurs, no chest wall tenderness Abdominal: Normal bowel sounds, Soft, No tenderness, No hepatospenomegaly, No masses Extremities: Bilateral grade 1 pedal edema Skin: No rashes, No breakdown, No significant lesion Neuro: Normal gait, Normal speech, Strength at 5/5 X4 ext, Normal tone, Sensation intact, Cranial nerves 3-12 NL, Reflexes 2+ Psych/Mental Status: Mental status NL, Mood NL Examination: LUNGS:Normal, CVS:Normal, MSK:Normal laboratory and microbiology Laboratory Tests 06/19/25 05:23 Test 06/19/25 05:23 Range/Units Serum Glucose 72 L 74-106 mg/dL Microbiology Date/Time Source Procedure Growth Status 06/13/25 13:38 Sputum Gram Stain - Final Complete 06/13/25 13:38 Sputum Respiratory Culture - Final Complete 06/11/25 00:23 Blood Blood Culture - Final NO GROWTH AFTER 5 DAYS OF INCUBATION. Complete Labs and/or images reviewed: Labs reviewed by me, Image(s) reviewed by me Problem List/Assessment/Plan Problem List/Assessment/Plan NONI, on CKD, secondary to hemodynamic mediated Mild hyponatremia due to excess H2O Congestive heart failure exacerbation NSTEMI Status post left heart catheterization, (PCI to left circumflex), Diabetes type 2 with hyperglycemia Mild anemia Hypertensive Emergency Chronic NSAIDs use Obesity Nephrotic syndrome likely due to diabetic nephropathy Plan/recommendation: (Dr. Vasquez) * kidney function is mildly improved * Increased urine output * continue IV Lasix 40 mg daily * Continue Amlodopine 10mg daily, start Carvidilol 6.25mg BID, DC lisinopril * Strict I&Os, avoid nephrotoxic drugs * Ergocalciferol 15110 q.week * Renal diet * Patient will follow with Dr. Vasquez at office * We will follow up with the patient Thank you for giving us the opportunity to take care of your patient. Please call back if you have any questions/concerns. Plan discussed with: Patient, Spouse, Other (RN) Dietary Evaluation Review Recommendations by RD: Dietary education by RD Comments: 1) Add 45g CCHO cardiac restriction to renal diet 2) Encourage PO intake 3) Refer to outpatient RD/CDCES for diabetes education 4) Follow-up with cardiology, nephrology 5) Continue to monitor I&O, labs, and skin integrity Expected Outcomes/Goals: 1) appetite and labs to improve 2) f/u in 3-5 days ESTRELLA RILEY Jun 19, 2025 08:57 DEUCE VASQUEZ MD Jun 19, 2025 14:21
[2025-06-19] MEDS: CLOPIDOGREL BISULFATE 75 MG TAB PO SCH (10:05)
--- NOTE | 2025-06-19 10:10 | DVHPN2 ---
Consult Progress Note Date Seen: Jun 19, 2025 Subjective Review of Systems: CVS:Normal, RESPIRATORY:Normal, NEURO:Normal Other Systems: Denies any cardiac symptoms Objective vital signs Vital Sign Date Time Temp Pulse Resp B/P (MAP) Pulse Ox O2 Delivery O2 Flow Rate FiO2 06/19/25 05:00 98.7 83 18 146/92 (110) 99 98.7 06/18/25 20:00 Room Air* 0 21 Total Intake and Output 06/18/25 06/18/25 06/19/25 15:00 23:00 07:00 Intake Total 200 ml 600 ml 800 ml Balance 200 ml 600 ml 800 ml medications Current Medications Medications Dose Ordered Sig/Anil Route Start Time Stop Time Status Last Admin Dose Admin Albuterol 2.5 mg Q6HPRN PRN NEB 06/11/25 04:15 Cancel Ceftriaxone Sodium 50 ml @ 100 mls/hr DAILY@09 IV 06/12/25 09:00 06/17/25 08:32 100 MLS/HR Azithromycin 250 ml @ 125 mls/hr DAILY IV 06/12/25 10:00 06/17/25 08:33 125 MLS/HR Hydralazine HCl 10 mg Q6HP PRN IV 06/11/25 04:15 06/13/25 01:02 10 MG Ipratropium [place] 0.5 mg Q6HPRN PRN NEB 06/11/25 04:15 Cancel Acetaminophen/ Hydrocodone Bitart 1 tab Q4HP PRN PO 06/11/25 04:15 06/17/25 02:27 1 TAB Temazepam 15 mg QHSP PRN PO 06/11/25 04:15 06/14/25 22:10 15 MG Ondansetron HCl 4 mg Q4HP PRN IV 06/11/25 04:15 06/14/25 20:46 4 MG Guaifenesin/ Dextromethorphan 10 ml Q4HP PRN PO 06/11/25 04:15 Dextrose 50 ml UD PRN IV 06/11/25 10:45 Cancel Furosemide 40 mg DAILY IV 06/12/25 10:00 06/17/25 08:33 40 MG Diagnostic Test (Pha) 1 strip ACHS 06/11/25 17:00 06/19/25 06:18 1 STRIP Insulin Human Regular AC SC 06/11/25 17:00 06/18/25 16:19 12 UNITS Dextrose 50 ml UD PRN IV 06/11/25 14:30 Ergocalciferol 50,000 unit Q7D PO 06/11/25 16:00 06/18/25 16:18 50,000 UNIT Famotidine 20 mg DAILY@0700 PO 06/12/25 07:00 06/19/25 06:28 20 MG Acetaminophen 650 mg Q4HP PRN PO 06/12/25 12:30 06/18/25 22:21 650 MG Ferrous Sulfate 325 mg DAILY PO 06/13/25 10:00 06/17/25 08:34 325 MG Aspirin 81 mg DAILY PO 06/13/25 10:00 06/17/25 08:35 81 MG Atorvastatin Calcium 80 mg HS PO 06/12/25 22:00 06/18/25 22:22 80 MG Carvedilol 3.125 mg Q12HR PO 06/13/25 22:00 06/18/25 22:22 3.125 MG Acetaminophen 650 mg Q6HP PO 06/13/25 18:00 06/17/25 16:57 650 MG Acetylcysteine 1,200 mg BID PO 06/17/25 10:00 06/19/25 09:59 06/18/25 22:27 1,200 MG Sodium Chloride 1,000 ml @ 100 mls/hr Q10H IV 06/18/25 07:00 06/18/25 16:18 100 MLS/HR Clopidogrel Bisulfate 75 mg DAILY PO 06/19/25 10:00 Insulin Glargine 20 units Q12H SC 06/18/25 19:00 06/18/25 20:07 20 UNITS Examination: LUNGS:Normal, CVS:Normal, NEURO:Normal laboratory and microbiology Laboratory Tests 06/19/25 05:23 Test 06/19/25 05:23 Range/Units Serum Glucose 72 L 74-106 mg/dL Problem List/Assessment/Plan Problem List/Assessment/Plan NSTEMI Type I Coronary artery disease status post PCI with stent placement of the LCx x 1DES Acute on chronic decompensated HFpEF, NYHA class II Pertinent family history for cardiovascular disease Type 2 diabetes mellitus, uncontrolled (A1c >14%) Hypertensive urgency Dyslipidemia, newly diagnosed Acute kidney injury Sepsis with PNA Obesity Plan/Recommendations (Dr. Portillo) * Transthoracic echocardiogram reveals an EF of 55% * Liborio protocol with Cardiolite stress test: Fixed inferolateral wall defect. Can not exclude TID which can represent CAD * Twelve lead electrocardiogram revealed a normal sinus rhythm with T-wave inversion to lateral leads * Troponin levels peaked at 157 ng/L * Cardiac catheterization and coronary angiogram: moderate to severe CAD of the LCx and LAD with successful PTCA and stenting of the LCx and FFR evaluation of the LAD (see full dictated report) Plan: Cardiac asymptomatic. Given treadmill cardiolite stress test findings the patient was scheduled for a cardiac catheterization and coronary angiogram with successful PCI and stent placement of the mid-LCx including 1DES. Continue aggressive blood pressure control (avoid nephrotoxic agents), dual-antiplatelet therapy (uninterrupted for one year), and lipid-lowering agent. Continue Nephrology recommendations including strict intake/output, daily weights, & low sodium diet. Strongly counseled on Mediterranean diet, exercise, tight glycemic control, and medical compliance. Follow-up with a primary rn nursery in the outpatient setting within 1-2 weeks post-discharge. There is no further cardiac work-up indicated at this time. Kindly call with any questions or concerns. Thank you for allowing us to care for this patient. This medical document was created using an electronic medical record system with voice recognition software and computerized dictation system. Although this document has been carefully reviewed, there might still be some phonetic and typographical errors. Occasional wrong-word or ``sound-alike substitutions may have occurred due to the inherent limitations of voice recognition software. These areas are purely typographical due to imperfections of the software programs and do not reflect any compromise in the patient's medical care. Please read the chart carefully and recognize, using context, where these substitutions have occurred. Plan discussed with: Patient, Other Dietary Evaluation Review Recommendations by RD: Dietary education by RD Comments: 1) Add 45g CCHO cardiac restriction to renal diet 2) Encourage PO intake 3) Refer to outpatient RD/CDCES for diabetes education 4) Follow-up with cardiology, nephrology 5) Continue to monitor I&O, labs, and skin integrity Expected Outcomes/Goals: 1) appetite and labs to improve 2) f/u in 3-5 days Date of Service: Jun 19, 2025 Billing Provider: ROSS APONTE Cardiology Common Codes: [id number] [facility](High ROSS APONTE Jun 19, 2025 10:10
--- NOTE | 2025-06-19 10:42 | DVHPNRES ---
Progress Note Date Seen: Jun 19, 2025 Resident Creating Document: ROSY LOU RESIDENT Medical Necessity Reason Pt with a Central, PICC or Fol: No Subjective Review of Systems Brief history on arrival: This is a 39-year-old female with past medical history of hypertension, diabetes, presented to the ER with chief complain of shortness of breaths, congestion and productive cough. Patient endorses a four day history of worsening shortness for breath with associated productive cough, with sputum white in color. Shortness of breaths is present at rest. She also complained of nausea, vomiting, diarrhea since last week. She reported feeling nauseous early in the morning, followed by vomiting episode she had 1 episode of watery emesis every day since last 1 week, no hematemesis reported. Her diarrhea resolved 3 days back, complains of dowling colored stools now. She also complains of associated headache, dizziness since last 1 week. She also reports her blood sugar has been running high greater than 200s over the last week. She denies fever, chills, abdominal pain, pain or burning micturition. PMHx: Hypertension, diabetes mellitus PSHx: No significant history Family history: Noncontributory Social history: Denies smoking, alcohol, recreational drug use. Lives in house with family, full code. Home medication: Lantus, losartan Allergic history: Known allergies 06/15/2025: She reports that the shortness of breath, cough, chest pain has subsided. Reports that the headache has come down. Pending coronary angiogram with left heart catheterization when renal function has improved. 06/16/25: She has taken for cardiac stress test today. We will continue monitoring and managing. 06/17/2025: She is complaining of 5/10 headache. Cardiac stress test equivocal, fixed inferolateral wall defect seen. Cardiology recommended coronary angiogram, scheduled for tomorrow. 06/18/2025: Patient has questions about coronary catheterization, all questions & concerns answered at bedside and procedure explained. Patient was taken in for PCI of left circumflex artery. We will continue to monitor and manage 06/19/25: Patient was seen at bedside today. S/p PCI day 1 . Continue monitoring for contrast nephropathy. Objective vital signs Vital Sign Date Time Temp Pulse Resp B/P (MAP) Pulse Ox O2 Delivery O2 Flow Rate FiO2 06/19/25 10:04 76 154/92 11/6/25 09:00 98.1 16 97 98.1 06/18/25 20:00 Room Air* 0 21 Total Intake and Output 06/18/25 06/18/25 06/19/25 15:00 23:00 07:00 Intake Total 200 ml 600 ml 800 ml Balance 200 ml 600 ml 800 ml medications Current Medications Medications Dose Ordered Sig/Anil Route Start Time Stop Time Status Last Admin Dose Admin Albuterol 2.5 mg Q6HPRN PRN NEB 06/11/25 04:15 Cancel Ceftriaxone Sodium 50 ml @ 100 mls/hr DAILY@09 IV 06/12/25 09:00 06/19/25 10:28 100 MLS/HR Azithromycin 250 ml @ 125 mls/hr DAILY IV 06/12/25 10:00 06/19/25 10:06 125 MLS/HR Hydralazine HCl 10 mg Q6HP PRN IV 06/11/25 04:15 06/13/25 01:02 10 MG Ipratropium [place] 0.5 mg Q6HPRN PRN NEB 06/11/25 04:15 Cancel Acetaminophen/ Hydrocodone Bitart 1 tab Q4HP PRN PO 06/11/25 04:15 06/17/25 02:27 1 TAB Temazepam 15 mg QHSP PRN PO 06/11/25 04:15 06/14/25 22:10 15 MG Ondansetron HCl 4 mg Q4HP PRN IV 06/11/25 04:15 06/14/25 20:46 4 MG Guaifenesin/ Dextromethorphan 10 ml Q4HP PRN PO 06/11/25 04:15 Dextrose 50 ml UD PRN IV 06/11/25 10:45 Cancel Furosemide 40 mg DAILY IV 06/12/25 10:00 06/19/25 10:03 40 MG Diagnostic Test (Pha) 1 strip ACHS 06/11/25 17:00 06/19/25 06:18 1 STRIP Insulin Human Regular AC SC 06/11/25 17:00 06/18/25 16:19 12 UNITS Dextrose 50 ml UD PRN IV 06/11/25 14:30 Ergocalciferol 50,000 unit Q7D PO 06/11/25 16:00 06/18/25 16:18 50,000 UNIT Famotidine 20 mg DAILY@0700 PO 06/12/25 07:00 06/19/25 06:28 20 MG Acetaminophen 650 mg Q4HP PRN PO 06/12/25 12:30 06/18/25 22:21 650 MG Ferrous Sulfate 325 mg DAILY PO 06/13/25 10:00 06/19/25 10:13 325 MG Aspirin 81 mg DAILY PO 06/13/25 10:00 06/19/25 10:05 81 MG Atorvastatin Calcium 80 mg HS PO 06/12/25 22:00 06/18/25 22:22 80 MG Carvedilol 3.125 mg Q12HR PO 06/13/25 22:00 06/19/25 10:04 3.125 MG Acetaminophen 650 mg Q6HP PO 06/13/25 18:00 06/17/25 16:57 650 MG Sodium Chloride 1,000 ml @ 100 mls/hr Q10H IV 06/18/25 07:00 06/18/25 16:18 100 MLS/HR Clopidogrel Bisulfate 75 mg DAILY PO 06/19/25 10:00 06/19/25 10:05 75 MG Insulin Glargine 20 units Q12H SC 06/18/25 19:00 06/18/25 20:07 20 UNITS Examination General: Patient alert and oriented in person, place and time. Patient following commands. HEENT: Normocephalic, atraumatic, moist mucous membranes Respiratory/pulmonary: Clear lungs bilaterally, vesicular murmurs present in almost all lung lobo, no associated crackles or wheezes. Cardiovascular: Normal heart sounds S1 and S2 with no associated murmurs Abdomen: Soft abdomen. No masses palpated, soft abdomen without guarding. Extremities: There is no peripheral edema present at the lower extremities. Peripheral Pulses: 3+ Radial (R). 3+ Radial (L). 3+ Dorsalis pedis (R). 3+ Dorsalis pedis(L) Skin: No rashes or pruritus, there is no sacral edema present at this time. Neurological: Intact cranial nerves no focal neurological deficits. laboratory and microbiology Laboratory Tests 06/19/25 05:23 Test 06/19/25 05:23 Range/Units Serum Glucose 72 L 74-106 mg/dL Microbiology Date/Time Source Procedure Growth Status 06/13/25 13:38 Sputum Gram Stain - Final Complete 06/13/25 13:38 Sputum Respiratory Culture - Final Complete 06/11/25 00:23 Blood Blood Culture - Final NO GROWTH AFTER 5 DAYS OF INCUBATION. Complete Problem List/Assessment/Plan Problem List/Assessment/Plan Sepsis due to Community-acquired pneumonia due to Gram-negative, Gram-positive bacteria, improving Lactic acid WNL. Ordered blood culture, sputum culture Continue IV ceftriaxone, azithromycin Holding off IV fluids in context of possible heart failure Med treatment with albuterol, ipratropium given Systolic and Diastolic Congestive heart failure, HFrEF NSTEMI likely type 1 Coronary artery disease, s/p PTCA, circumflex coronary artery stent day 1 Hypertensive emergency, resolving Pertinent family history of cardiovascular disease Coronary catheterization shows EF 35% BNP elevated likely due to kidney disease Cardiology on board. Patient taken in for stress test today considering elevated creatinine. Cardiac stress test equivocal, fixed inferolateral wall defect seen. S/p circumflex stenting day 1 Insulin-dependent diabetes mellitus type 2, uncontrolled A1c> 14 Simple hyperglycemia High serum osmolarity A1c more than 14 Started on sliding scale insulin, basal Lantus Discontinued methylprednisolone in context of persistently high hyperglycemia; no indications to continue Acute on chronic renal failure stage 2 hemodynamically mediated (VMN) Nephrotic syndrome, likely due to diabetic nephropathy Normocytic, normochromic anemia, likely due to above Mild hyponatremia, resolving Avoid nephrotoxins Low salt diet, oral hydration Holding off IV fluids in context of possible heart failure Repeat [facility] Nephrology on board, recommended IV Lasix, strict I&O, renal diet Cardiology on board, cardiac angiogram planned. Patient on telemetry monitoring Continue carvedilol, continue amlodipine daily; lisinopril discontinued. Insomnia Continue Tenazepam Obesity class 1 Dyslipidemia Hemorrhagic stroke, ruled out CT negative for acute abnormality. DIET: Consistent carb with sodium restriction diet DVT PROPHYLAXIS: SCD, patient ambulatory GI PROPHYLAXIS: Pepcid in context of low GFR CODE STATUS: Goals of care discussed with patient at bedside for more than 18 minutes. Full code DISPOSITION: Telemetry Patient's status and plan discussed with the patient. Case discussed with Dr. Mcneal Plan discussed with: Patient, Other (nurses) My Orders My Orders Orders - ROSY LOU RESIDENT Procedure Category Date Status Time Cardiac DIET 06/18/25 Transmitted Diet-2gna,Lofat,Lochol Lunch Dietary Evaluation Review Recommendations by RD: Dietary education by RD Comments: 1) Add 45g CCHO cardiac restriction to renal diet 2) Encourage PO intake 3) Refer to outpatient RD/CDCES for diabetes education 4) Follow-up with cardiology, nephrology 5) Continue to monitor I&O, labs, and skin integrity Expected Outcomes/Goals: 1) appetite and labs to improve 2) f/u in 3-5 days Date of Service: Jun 19, 2025 Billing Provider: HARISH MCNEAL MD Common Visit Codes: [id number] INP/OBS CARE(HIGH) ROSY LOU RESIDENT Jun 19, 2025 10:42 HARISH MCNEAL MD Jun 21, 2025 16:58
[2025-06-20 01:00] VITALS: BP 147/93; PULSE 78; RESP 17; TEMP 98.5; O2SAT 97
[2025-06-20 05:00] VITALS: BP 120/84; PULSE 81; RESP 18; TEMP 98.2; O2SAT 98
[2025-06-20 07:54] LABS: Chloride 104 mmol/L (98-107); Potassium 4.5 mmol/L (3.5-5.1); Sodium 137 mmol/L (136-145)
[2025-06-20 07:55] LABS: Anion Gap 8 (5-15); Carbon Dioxide 25 mmol/L (20-31)
[2025-06-20 07:56] LABS: Calcium 8.9 mg/dL (8.7-10.4)
[2025-06-20 08:00] VITALS: PULSE 77
[2025-06-20 08:01] LABS: BUN/Creatinine Ratio 12.7 (10.0-20.0)
[2025-06-20 08:04] LABS: Blood Urea Nitrogen 28 mg/dL (9-23); Glucose 173 mg/dL (74-106)
[2025-06-20 09:00] VITALS: BP 140/45; PULSE 85; RESP 17; TEMP 98.4; O2SAT 99
--- NOTE | 2025-06-20 11:08 | DVHPN2 ---
Progress Note Date Seen: Jun 20, 2025 Medical Necessity Reason Pt with a Central, PICC or Fol: No Subjective Patient reports: No new complaints Other Systems: Patient seen and examined by myself today in follow-up Objective vital signs Vital Sign Date Time Temp Pulse Resp B/P (MAP) Pulse Ox O2 Delivery O2 Flow Rate FiO2 06/20/25 09:40 85 137/60 06/20/25 09:00 98.4 17 99 98.4 06/20/25 08:00 Room Air* 0 21 Total Intake and Output 06/19/25 06/19/25 06/20/25 15:00 23:00 07:00 Intake Total 300 ml 500 ml 800 ml Balance 300 ml 500 ml 800 ml medications Current Medications Medications Dose Ordered Sig/Anil Route Start Time Stop Time Status Last Admin Dose Admin Albuterol 2.5 mg Q6HPRN PRN NEB 06/11/25 04:15 Cancel Ceftriaxone Sodium 50 ml @ 100 mls/hr DAILY@09 IV 06/12/25 09:00 06/20/25 09:38 100 MLS/HR Azithromycin 250 ml @ 125 mls/hr DAILY IV 06/12/25 10:00 06/20/25 09:48 125 MLS/HR Hydralazine HCl 10 mg Q6HP PRN IV 06/11/25 04:15 06/13/25 01:02 10 MG Ipratropium [place] 0.5 mg Q6HPRN PRN NEB 06/11/25 04:15 Cancel Acetaminophen/ Hydrocodone Bitart 1 tab Q4HP PRN PO 06/11/25 04:15 06/17/25 02:27 1 TAB Temazepam 15 mg QHSP PRN PO 06/11/25 04:15 06/14/25 22:10 15 MG Ondansetron HCl 4 mg Q4HP PRN IV 06/11/25 04:15 06/14/25 20:46 4 MG Guaifenesin/ Dextromethorphan 10 ml Q4HP PRN PO 06/11/25 04:15 Dextrose 50 ml UD PRN IV 06/11/25 10:45 Cancel Furosemide 40 mg DAILY IV 06/12/25 10:00 06/20/25 09:37 40 MG Diagnostic Test (Pha) 1 strip ACHS 06/11/25 17:00 06/20/25 06:36 1 STRIP Insulin Human Regular AC SC 06/11/25 17:00 06/20/25 06:19 3 UNITS Dextrose 50 ml UD PRN IV 06/11/25 14:30 Ergocalciferol 50,000 unit Q7D PO 06/11/25 16:00 06/18/25 16:18 50,000 UNIT Famotidine 20 mg DAILY@0700 PO 06/12/25 07:00 06/20/25 06:20 20 MG Acetaminophen 650 mg Q4HP PRN PO 06/12/25 12:30 06/18/25 22:21 650 MG Ferrous Sulfate 325 mg DAILY PO 06/13/25 10:00 06/20/25 09:38 325 MG Aspirin 81 mg DAILY PO 06/13/25 10:00 06/19/25 10:05 81 MG Atorvastatin Calcium 80 mg HS PO 06/12/25 22:00 06/19/25 21:18 80 MG Carvedilol 3.125 mg Q12HR PO 06/13/25 22:00 06/20/25 09:40 3.125 MG Acetaminophen 650 mg Q6HP PO 06/13/25 18:00 06/20/25 00:47 650 MG Sodium Chloride 1,000 ml @ 100 mls/hr Q10H IV 06/18/25 07:00 06/20/25 09:35 100 MLS/HR Clopidogrel Bisulfate 75 mg DAILY PO 06/19/25 10:00 06/20/25 09:38 75 MG Insulin Glargine 20 units Q12H SC 06/18/25 19:00 06/20/25 06:20 20 UNITS Examination: LUNGS:Normal, CVS:Normal, MSK:Normal laboratory and microbiology Laboratory Tests 06/20/25 06:10 06/19/25 05:23 Test 06/20/25 06:10 Range/Units Serum Glucose 173 H 74-106 mg/dL Microbiology Date/Time Source Procedure Growth Status 06/13/25 13:38 Sputum Gram Stain - Final Complete 06/13/25 13:38 Sputum Respiratory Culture - Final Complete 06/11/25 00:23 Blood Blood Culture - Final NO GROWTH AFTER 5 DAYS OF INCUBATION. Complete Problem List/Assessment/Plan Problem List/Assessment/Plan NONI, on CKD, secondary to hemodynamic mediated Mild hyponatremia due to excess H2O, resolved Congestive heart failure exacerbation NSTEMI Status post left heart catheterization, (PCI to left circumflex), Diabetes type 2 with hyperglycemia Mild anemia Hypertensive Emergency Chronic NSAIDs use Obesity Nephrotic syndrome likely due to diabetic nephropathy Recommendations * kidney function slightly worsened today * Increased urine output * continue IV Lasix 40 mg daily * Continue Amlodopine 10mg daily, start Carvidilol 6.25mg BID, DC lisinopril * Strict I&Os, avoid nephrotoxic drugs * Ergocalciferol 66179 q.week * Add SGLT2 inhibitor * Renal diet * Patient will follow with Dr. Vasquez at office * We will follow up with the patient Thank you for giving us the opportunity to take care of your patient. Please call back if you have any questions/concerns. Plan discussed with: Patient Dietary Evaluation Review Recommendations by RD: Dietary education by RD Comments: 1) Add 45g CCHO cardiac restriction to renal diet 2) Encourage PO intake 3) Refer to outpatient RD/CDCES for diabetes education 4) Follow-up with cardiology, nephrology 5) Continue to monitor I&O, labs, and skin integrity Expected Outcomes/Goals: 1) appetite and labs to improve 2) f/u in 3-5 days DEUCE VASQUEZ MD Jun 20, 2025 11:08
[2025-06-20] MEDS ORDERED: ATOR40TA52 PO (12:38)
[2025-06-20] MEDS ORDERED: ASPI-543 PO (12:38)
[2025-06-20] MEDS ORDERED: CLOP75TA28 PO (12:38)
[2025-06-20] MEDS ORDERED: CARV-214 PO ×2 (12:40→12:45)
[2025-06-20] MEDS ORDERED: FER325T PO ×2 (12:40→12:45)
[2025-06-20] MEDS ORDERED: EMPA1TAB PO ×2 (12:40→12:45)
[2025-06-20] MEDS ORDERED: ASPI-325 PO (12:45)
[2025-06-20] MEDS ORDERED: CLOP75TA70 PO (12:45)
[2025-06-20] MEDS ORDERED: ATOR20TA50 PO (12:45)
[2025-06-20 12:51] VITALS: BP 141/89; PULSE 73; RESP 16; TEMP 97.8; O2SAT 99
[2025-06-20 12:59] VITALS: BP 141/89; PULSE 73; TEMP 36.6
[2025-06-20] MEDS ORDERED: GLUC1TES63 VI (13:56)
[2025-06-20] MEDS ORDERED: INSU100I49 SC (14:07)
[2025-06-20] MEDS ORDERED: INSLANTI SC (14:08)
[2025-06-20] MEDS ORDERED: BLOO1KIT60 XX (14:09)
[2025-06-20] MEDS ORDERED: ALCOPAD58 XX (14:10)
[2025-06-20] MEDS ORDERED: INSU-1640 XX (14:13)
--- NOTE | 2025-06-20 17:37 | DVHDSRES ---
Discharge Summary Date of Admission Resident Creating Document: ROSY LOU RESIDENT Jun 11, 2025 at 04:11 Date of Discharge: Jun 20, 2025 Labs/Diagnostic Data: Laboratory Results Test 06/20/25 11:24 06/20/25 06:10 06/19/25 05:23 06/18/25 05:50 POC Glucose 260 mg/dl (70-106) Sodium Level 137 mmol/L (136-145) Potassium Level 4.5 mmol/L (3.5-5.1) Chloride Level 104 mmol/L (98-107) Carbon Dioxide Level 25 mmol/L (20-31) Anion Gap 8 (5-15) Blood Urea Nitrogen 28 mg/dL (9-23) Creatinine 2.20 mg/dL (0.550-1.02) Glomerular Filtration Rate Calc 28 mL/min (>90) BUN/Creatinine Ratio 12.7 (10.0-20.0) Serum Glucose 173 mg/dL (74-106) Calcium Level 8.9 mg/dL (8.7-10.4) White Blood Count 7.3 10^3/uL (4.4-10.8) Red Blood Count 4.30 10^6/uL (4.0-5.20) Hemoglobin 11.7 g/dL (12.2-16.2) Hematocrit 35.4 % (36.0-46.0) Mean Corpuscular Volume 82.4 fL (80.0-100.0) Mean Corpuscular Hemoglobin 27.2 pg (28.0-32.0) Mean Corpuscular Hemoglobin Concent 33.0 g/dL (32.0-36.0) Red Cell Distribution Width 13.4 % (11.8-14.3) Platelet Count 256 10^3/uL (140-450) Mean Platelet Volume 10.4 fL (6.9-10.8) Neutrophils (%) (Auto) 44.7 % (37.0-80.0) Lymphocytes (%) (Auto) 42.8 % (10.0-50.0) Monocytes (%) (Auto) 8.7 % (0.0-12.0) Eosinophils (%) (Auto) 3.2 % (0.0-7.0) Basophils (%) (Auto) 0.6 % (0.0-2.0) Neutrophils # (Auto) 3.3 10 ^3/uL (1.6-8.6) Lymphocytes # (Auto) 3.1 10 ^3/uL (0.4-5.4) Monocytes # (Auto) 0.6 10 ^3/uL (0-1.3) Eosinophils # (Auto) 0.2 10 ^3/uL (0-0.8) Basophils # (Auto) 0 10 ^3/uL (0-0.2) Nucleated Red Blood Cells 0.1 % Prothrombin Time 10.9 sec (9.3-11.8) Prothrombin Time INR 1.03 (0.9-1.15) Activated Partial Thromboplast Time 27.6 SEC (24.5-34.5) Test 06/17/25 16:15 06/14/25 05:29 06/12/25 08:05 06/12/25 04:33 Urine Test Negative (Negative) B-Type Natriuretic Peptide 338.96 pg/mL (0-100) Influenza Type A Antigen Negative (Negative) Influenza Type B Antigen Negative (Negative) SARS-CoV-2 Antigen (Rapid) Negative (NEGATIVE) Triglycerides Level 251 mg/dL (< 150) Cholesterol Level 359 mg/dL (< 200) LDL Cholesterol 241 mg/dL (< 100) HDL Cholesterol 50 mg/dL (40-59) Beta HCG, Quantitative 0.2 mIU/mL (1.5-4.2) Test 06/11/25 14:57 06/11/25 12:08 06/11/25 02:18 06/11/25 00:23 Serum Osmolality 317 mOsm/kg (278-298) Troponin I High Sensitivity 134 ng/L (</=34) Hemoglobin A1c > 14.0 % A1C (<5.7) Uric Acid 4.4 mg/dL (3.1-7.8) Phosphorus Level 3.2 mg/dL (2.4-5.1) Magnesium Level 2.1 mg/dL (1.6-2.6) Thyroid Stimulating Hormone (TSH) 1.74 uIU/mL (0.55-4.78) Parathyroid Hormone (Intact) 216.0 pg/mL (18.4-80.1) Urine Color Colorless (Yellow) Urine Clarity Clear (Clear) Urine pH 6.5 (5.0-9.0) Urine Specific Call 1.016 (1.001-1.035) Urine Protein 2+ (Negative) Urine Ketones Negative (Negative) Urine Blood 1+ /uL (Negative) Urine Nitrite Negative (Negative) Urine Bilirubin Negative (Negative) Urine Urobilinogen Normal mg/dL (Negative) Urine Leukocyte Esterase Negative /uL (Negative) Urine RBC 4 /hpf (0 - 4) Urine Microscopic WBC 2 /HPF (0-5) Urine Squamous Epithelial Cells Few /hpf (<5) Urine Bacteria None seen /hpf (None Seen) Urine Creatinine 28.27 mg/dL (30.0-125.0) Urine Protein/Creatinine Ratio 9.67 Urine Sodium 81 mmol/L (40-220) Urine Glucose 4+ mg/dL (Normal) Urine Total Protein 273.3 mg/dL (1-14) Lactic Acid Level 0.9 mmol/L (0.4-2.0) Total Bilirubin 0.3 mg/dL (0.2-1.0) Aspartate Amino Transferase (AST) 17 U/L (13-40) Alanine Aminotransferase (ALT) 14 U/L (7-40) Alkaline Phosphatase 162 U/L (46-116) Total Protein 6.9 g/dL (5.7-8.2) Albumin 3.6 g/dL (3.2-4.8) Test 06/11/25 00:17 Iron Level 47 ug/dL (50-170) Total Iron Binding Capacity 295 ug/dL (250-425) Percent Iron Saturation 15.9 % (15-50) Ferritin 77.9 ng/mL (10-291) Vitamin D 25-Hydroxy 10.7 ng/mL (30.0-100) Other Laboratory Tests 06/20/25 06:10 06/19/25 05:23 Brief Hx & Hospital Course: Brief history on arrival: This is a 39-year-old female with past medical history of hypertension, diabetes, presented to the ER with chief complain of shortness of breaths, congestion and productive cough. Patient endorses a four day history of worsening shortness for breath with associated productive cough, with sputum white in color. Shortness of breaths is present at rest. She also complained of nausea, vomiting, diarrhea since last week. She reported feeling nauseous early in the morning, followed by vomiting episode she had 1 episode of watery emesis every day since last 1 week, no hematemesis reported. Her diarrhea resolved 3 days back, complains of dowling colored stools now. She also complains of associated headache, dizziness since last 1 week. She also reports her blood sugar has been running high greater than 200s over the last week. She denies fever, chills, abdominal pain, pain or burning micturition. Hospital course: Patient had tachycardia, tachypnea on arrival, patient was admitted along the lines of Sepsis due to Community-acquired pneumonia. She was started on IV ceftriaxone, azithromycin, Med treatment with albuterol, ipratropium given, blood culture, sputum culture ordered. Initial labs showed elevated creatinine, BUN. Nephrology was consulted for acute kidney injury, recommended IV fluids, Lasix. Labs also revealed elevated BNP and troponin. Cardiology was consulted for suspicion of acute exacerbation of heart failure. Patient had no previous history of heart failure, underwent echocardiogram revealing ejection fraction of 55%. Patient underwent Cardiac stress test which read equivocal, fixed inferolateral wall defect seen. Patient was taken for coronary catheterization which revealed EF 35%, and circumflex coronary artery occlusion. Underwent PTCA and stenting of circumflex coronary artery. Patient was extensively counseled on blood glucose monitoring and control. She completed 7 days of antibiotics for community-acquired pneumonia and will not be needing any oral antibiotics for home. Patient was also counseled on compliance on DAPT, home medications chronic diseases. She is stable for discharge and we will continue DAPT for 1 year. Patient will be discharged with DAPT on bedside. Conditions managed during stay: Sepsis due to Community-acquired pneumonia due to Gram-negative, Gram-positive bacteria Systolic and Diastolic Congestive heart failure exacerbation, HFrEF NSTEMI likely type 1 Coronary artery disease, s/p PTCA, (PCI to left circumflex) Hypertensive emergency, resolved Pertinent family history of cardiovascular disease Coronary catheterization shows EF 35% Insulin-dependent diabetes mellitus type 2, uncontrolled A1c> 14 Simple hyperglycemia Acute on chronic renal failure stage 2 hemodynamically mediated (VMN) Nephrotic syndrome, likely due to diabetic nephropathy Normocytic, normochromic anemia, likely due to CKD Mild hyponatremia, resolved Insomnia Obesity class 1 Dyslipidemia Hemorrhagic stroke, ruled out Plan: Continue home medications Started on Aspirin (Aspirin Low Dose) 81 Mg Tab daily Started on Atorvastatin Calcium 20 Mg Tab daily Started on Carvedilol (Coreg) 3.125 Mg Tab b.i.d. daily Started on Clopidogrel Bisulfate (Clopidogrel) 75 Mg Tab daily Started on Empagliflozin (Jardiance) 10 Mg Tab daily Started on Ferrous Sulfate 325 Mg Tab daily Follow with PCP in 1 week Follow with Cardiology in outpatient clinic Follow with Nephrology in outpatient clinic Consults/Reason for consult Nephrology on board, recommended continued IV fluids, strict I&O, avoid nephrotoxic drugs Cardiology on board, recommended echocardiogram, stress test, PCI. Status post PCI, recommended starting DAPT, atorvastatin Operations or Procedures Operative Report - 2 Report Details Date: 06/18/25 Preop Diagnosis: CAD Postop Diagnosis: CAD Surgeon: Dion Protillo MD Anesthesiologist: Conscious sedation Anesthesia: Mac, Local Consent: The patient was informed of the risks and benefits of the procedure. These include but are not limited to complications of anesthesia, postoperative infection, incomplete relief of symptoms, recurrence of symptoms, damage to blood vessels, nerves and tendons, deep venous thrombosis, pulmonary embolism and possible need for repeat surgery in the future. Complications: No complications Findings: Cardiomyopathy, stenotic circumflex coronary artery Indications for Surgery: Congestive heart failure. Abnormal troponins. Chest pain. Name of Procedure Performed Left heart catheterization. Bilateral cine coronary angiography. Left ventriculography. PTCA and stenting of the circumflex coronary artery. Fractional flow reserve evaluation of the left anterior descending coronary artery. Procedure Details Procedure Details: Prior local anesthesia with 2% lidocaine to the right wrist and full informed consent obtained patient was prepped and draped in the usual fashion followed by placement of a six Argentine sheath into the radial artery through which a six Argentine multipurpose catheter was used for ventriculography and cannulation of both right and left coronary ostia. A three five EBU guide was then used for angioplasty of the circumflex. No complications. Hemodynamics: Aortic blood pressure was 110/70. End-diastolic pressure was eight. There was no gradient across the aortic valve on pullback. Coronary anatomy: RCA is a large vessel. It has no stenosis in its proximal mid or distal segments. The PDA in the posterolateral branches are normal. Left main is large and normal. Left anterior descending is a large vessel it has a proximal 40-50% stenosis. FFR revealed a stenosis of point eight nine. This is indicative of mild CAD. Diagonals and septals are normal. The circumflex is a large vessel it has a mid 95% stenosis. Proximal and distal segments are free of significant disease. Ventriculography in the HUTCHISON projection shows an EF of 35% with global hypokinesis and LV enlargement. Angioplasty was performed of the circumflex coronary artery. A three five EBU guide was then placed into the left main Specter wire across the area of stenosis followed by placement a 2.5 mm balloon. This was dilated at a proximally 10 atmospheres. We then placed in brook Medtronic 3.0 x 12 drug- eluting stent at a proximally 13 atmospheres. There was excellent antegrade flow without thrombus formation and/or dissection. Impression: Normal left ventricular end-diastolic pressure at rest with mild to severe CAD of the circumflex and LAD. Decreased left ventricular ejection fraction at approximately 35% with a dilated left ventricle. Successful PTCA and stenting of the circumflex coronary artery and FFR evaluation of the LAD Recommendations: Dual antiplatelet therapy. Risk factor modification. Afterload reduction. BP control Condition Good Disposition 2 Still a Patient Cardiology Stress Test [place] Treadmill Stress Test [place] Referring MD: TRISTAN Aponte Protocol: Liborio (with cardiolite) Reason for referral: Chest Pain Target heart Rate:@85%: 153 Percent MPHR: 180 METS: 7.50 Resting Heart rate: 85 Resting Blood Pressure: 113/82 Exercise Heart Rate: 125 Exercise Blood Pressure: 154/86 Reason for Termination of Test: Shortness of breath Baseline EKG: Sinus rhyhtm with T-wave inversion to inferolateral leads Stress EKG: Sinus tachycardia without progressive ST-T wave segment changes Functional Capacity: Mildly Decreased Heart Rate Response: Adequate Blood Pressure Response: Hypertensive Clinical response: Non-ischemic Arrhythmia?: No Cardiolite Injected?: Yes ST-T Changes: Non/Minimal Probability of Inducible Ische: Perfusion result pending Comments: Liborio protocol terminated prematurely 2/2 increased fatigue. Date of Service: Jun 16, 2025 Billing Provider: ROSS APONTE Cardiology Common Codes: PROCEDURE ONLY Treadmill W/Cardiolite Nuclear: [id number], ZAID, RPT APPROVED REPORT EXAM: Two-dimensional and M-mode echocardiogram with Doppler and color Doppler. INDICATION Heart Failure RISK FACTORS Height: 5'4", Weight: 167 DIMENSIONS LVDd 4.8 (3.8-5.7cm) LA (2D) 3.9 (1.9-4.0cm) Aortic Root 2.6 (2.0- 3.7cm) LVDs 3.5 (2.5-4.0cm) LA (MM) (1.9-4.0cm) Aortic Cusp Exc 1.5 (1.5- 2.0cm) EF (%) 52.0 (55-70%) Rt. Atrium 3.6 (1.9-4.0cm) Asc. Aorta 2.5 cm IVSd 1.0 (0.7-1.1cm) RV (D) 3.1 (1.8-2.4cm) PWd 1.1 (0.7-1.1cm) Mitral Valve Mitral Mitral Stenosis E wave 0.93m/s MV Mean GR. mmHg A wave 0.74m/s MV Peak GR. mmHg E/A ratio 1.3 2D MVA cm2 DECEL Time 173ms PRESS 1/2 Time ms Aortic Valve Aortic Valve Aortic Stenosis V1 1.25m/s AO Mean GR. 3mmHg V2 1.22m/s AO Peak GR. 6mmHg LVOT Diameter 1.8 (1.8-2.4cm) Doppler MAGED 2.61cm2 Pulmonic Valve V2 0.80m/s Other Information Quality : Technically Limited Rhythm : Technically limited study due to body habitus. Conclusion Technically good study. Sinus rhythm. Concentric LVH with mild aortic root enlargement and mild left atrial enlargement. Valves are normal. Left ventricular function is preserved at 55 % with normal right ventricular function. Dopplers unremarkable. No pericardial effusion masses or vegetations. CLINICAL HISTORY: Persistent headache TECHNIQUE: Helical scanning was performed of the head from the skull base to the vertex. Multiplanar reconstructions were performed. This exam was performed according to our departmental dose optimization program. Up-to-date CT equipment and radiation dose reduction techniques are utilized as appropriate. CTDI 51 DLP 809 COMPARISON: CT HEAD WITHOUT CONTRAST on DOS: 11/26/23 FINDINGS: There is no evidence for acute intracranial hemorrhage, acute ischemic changes, mass, mass effect, or extra-axial fluid collection. There is no hydrocephalus or midline shift. There is no effacement of the cerebral sulci and basal subarachnoid cisterns. The dowling-white matter differentiation is well maintained. The imaged paranasal sinuses are clear. IMPRESSION: NO ACUTE INTRACRANIAL ABNORMALITY SEEN. CHEST RADIOGRAPH Indication: SOB Technique: Single frontal view of the chest was obtained COMPARISON: None FINDINGS: Lines and Tubes: None Lungs: Moderate diffuse increased prominence of the pulmonary vasculature and mild patchy right basilar pulmonary airspace disease. Pleura: No effusion. No pneumothorax. Cardiomediastinal contours: Unremarkable Bones: Unremarkable IMPRESSION: 1. Moderate diffuse increased prominence of the pulmonary vasculature and mild patchy right basilar pulmonary airspace disease. INDICATION: ckd TECHNIQUE: Multiple real-time sonographic images of the kidneys and bladder were obtained. COMPARISON: None FINDINGS: RIGHT kidney measures 10.7 cm in length. No hydronephrosis. LEFT kidney measures 10.3 cm in length. No hydronephrosis. No large intraluminal masses are seen in the bladder. IMPRESSION: 1. Unremarkable examination. Condition at Discharge: Stable Final Diagnosis/Problems List Sepsis due to Community-acquired pneumonia due to Gram-negative, Gram-positive bacteria Systolic and Diastolic Congestive heart failure exacerbation, HFrEF NSTEMI likely type 1 Coronary artery disease, s/p PTCA, (PCI to left circumflex) Hypertensive emergency, resolved Pertinent family history of cardiovascular disease Coronary catheterization shows EF 35% Insulin-dependent diabetes mellitus type 2, uncontrolled A1c> 14 Simple hyperglycemia Acute on chronic renal failure stage 2 hemodynamically mediated (VMN) Nephrotic syndrome, likely due to diabetic nephropathy Normocytic, normochromic anemia, likely due to CKD Mild hyponatremia, resolved Insomnia Obesity class 1 Dyslipidemia Hemorrhagic stroke, ruled out Discharge Disposition: Home Discharge Instruct/Medications Diet: Consistent carbohydrate, Cardiac 2g Na,low cholest Activity: No Restrictions, As Tolerated Follow Up/Referral: Cardiology in outpatient clinic in 1-2 weeks PCP in 1 week Discharge clinic in 1 week Medications: Continue Aspirin, plavix uninterrupted for one year As per EHR New Medications: Blood Glucose Monitoring Suppl (D-Care Glucometer Kit/Glu W/Device) 1 Kit Kit KIT XX ACHS, #1 before meals and at night ACHS Glucose Blood (Glucose Meter Test Strips) 1 Brandi Brandi 1 BRANDI ACHS for 30 Days, #120 MISC Glucose Blood (Glucose Meter Test Strips) 1 Brandi Brandi 1 BRANDI ACHS for 30 Days, #120 MISC Insulin Aspart (Insulin Aspart) 100 Unit/Ml Inj 100 UNIT SC AC for 30 Days, INJ MEDIUM dose sliding scale. Less than/equal to 70 treat hypoglycemia per nursing protocol. 71-119 No additional insulin. 120-150 2 units. 151-200 4 units. 201-250 6 units. 251-300 8 units. 301-350 10 units. Greater than 351 12 units and call Insulin Glargine (Lantus) 100 Unit/Ml Inj 100 UNIT SC BID for 30 Days, INJ 8 am and 8 pm 20 units subcutaneously with insulin syringe Insulin Syringe/Needle U-100 (Aq Insulin Syringe/1Ml/31 31G X 5/16" 1 ml) 1 Mis Mis EA XX ACHS, #150 before meals and at night and morning Isopropyl Alcohol (Easy Touch Alcohol Prep P) 70 % Pad % XX ACHS, #120 before meals and at night ACHS Aspirin (Aspirin Low Dose) 81 Mg Tab 81 MG PO DAILY for 30 Days, #30 TAB 3 Refills Atorvastatin Calcium (Atorvastatin Calcium) 20 Mg Tab 80 MG PO HS for 30 Days, #120 TAB 3 Refills Carvedilol (Coreg) 3.125 Mg Tab 3.125 MG PO Q12HR for 30 Days, #60 TAB Clopidogrel Bisulfate (Clopidogrel) 75 Mg Tab 75 MG PO DAILY for 30 Days, #30 TAB 3 Refills Empagliflozin (Jardiance) 10 Mg Tab 10 MG PO DAILY for 30 Days, #30 TAB 3 Refills Ferrous Sulfate (Ferrous Sulfate) 325 Mg Tab 325 MG PO DAILY for 30 Days, #30 TAB 2 Refills Scheduled Aspirin (Aspirin Low Dose), 81 MG PO DAILY Atorvastatin Calcium (Atorvastatin Calcium), 80 MG PO HS Carvedilol (Coreg), 3.125 MG PO Q12HR Clopidogrel Bisulfate (Clopidogrel), 75 MG PO DAILY Empagliflozin (Jardiance), 10 MG PO DAILY Ferrous Sulfate (Ferrous Sulfate), 325 MG PO DAILY Glucose Blood (Glucose Meter Test Strips), 1 BRANDI ACHS Glucose Blood (Glucose Meter Test Strips), 1 BRANDI ACHS Insulin Aspart (Insulin Aspart), 100 UNIT SC AC Insulin Glargine (Lantus), 100 UNIT SC BID Durable Medical Equipment Blood Glucose Monitoring Suppl (D-Care Glucometer Kit/Glu W/Device), KIT XX ACHS, (DME) Insulin Syringe/Needle U-100 (Aq Insulin Syringe/1Ml/31 31G X 5/16" 1 ml), EA XX ACHS, (DME) Isopropyl Alcohol (Easy Touch Alcohol Prep P), % XX ACHS, (DME) Discharge Statement: "Patient was advised to return to the ER or call 911 if any headaches, dizziness, shortness of breath, chest pain, abdominal pain, bleeding, fevers, or worsening of medical condition. Patient was counseled about treatment plan, medications, possible side effects, patientverbalized understanding. All questions were answered to the best of my ability. This discharge took greater then 30 minutes in planning, reviewing documentation, counseling the patient, and discussing with other team members." ASSESSMENT ASSESSMENT Assessment Sepsis due to Community-acquired pneumonia due to Gram-negative, Gram-positive bacteria Systolic and Diastolic Congestive heart failure exacerbation, HFrEF NSTEMI likely type 1 Coronary artery disease, s/p PTCA, (PCI to left circumflex) Hypertensive emergency, resolved Pertinent family history of cardiovascular disease Coronary catheterization shows EF 35% Insulin-dependent diabetes mellitus type 2, uncontrolled A1c> 14 Simple hyperglycemia Acute on chronic renal failure stage 2 hemodynamically mediated (VMN) Nephrotic syndrome, likely due to diabetic nephropathy Normocytic, normochromic anemia, likely due to CKD Mild hyponatremia, resolved Insomnia Obesity class 1 Dyslipidemia Hemorrhagic stroke, ruled out Date of Service: Jun 20, 2025 Billing Provider: ROSY LOU Common Visit Codes: 89356-RJF/OBS DISCH DAY >30min ROSY LOU Jun 20, 2025 17:36 HARISH FORBES MD Jun 21, 2025 16:58
[2025-06-21] MEDS ORDERED: EMPAGLIFLOZIN 10 MG TAB PO SCH (10:00)
== END 2025-06-20 15:35 | disposition home or self-care (01) | DRG 710 ==
LOC: ER 23:58 → OVERFLOW 06-11 04:11 → WEST WING 06-11 09:54 → TELE-WESTW 06-12 14:32 → WEST WING 06-17 16:32 → TELE-WESTW 06-18 21:11
PROVIDERS: ADMIT Internal Medicine Geriatric Medicine; ATTEND Internal Medicine Geriatric Medicine
PROC: 027034Z Dilation of Coronary Artery, One Artery with Drug-eluting Intraluminal Device, Percutaneous Approach (ICD-10-PCS; principal; 2025-06-18)
PROC: 4A023N7 Measurement of Cardiac Sampling and Pressure, Left Heart, Percutaneous Approach (ICD-10-PCS; 2025-06-18)
PROC: B211YZZ Fluoroscopy of Multiple Coronary Arteries using Other Contrast (ICD-10-PCS; 2025-06-18)
PROC: B215YZZ Fluoroscopy of Left Heart using Other Contrast (ICD-10-PCS; 2025-06-18)
PROC: 4A033BC Measurement of Arterial Pressure, Coronary, Percutaneous Approach (ICD-10-PCS; 2025-06-18)
DX: A41.59 Other Gram-negative sepsis (principal); N17.0 Acute kidney failure with tubular necrosis; J15.69 Pneumonia due to other Gram-negative bacteria; I50.33 Acute on chronic diastolic (congestive) heart failure; J15.9 Unspecified bacterial pneumonia; I16.1 Hypertensive emergency; I21.A1 Myocardial infarction type 2; I42.9 Cardiomyopathy, unspecified; D64.9 Anemia, unspecified; I13.0 Hypertensive heart and chronic kidney disease with heart failure and stage 1 through stage 4 chronic kidney disease, or unspecified chronic kidney disease; E66.811 Obesity, class 1; E11.22 Type 2 diabetes mellitus with diabetic chronic kidney disease; G47.00 Insomnia, unspecified; E87.1 Hypo-osmolality and hyponatremia; I16.0 Hypertensive urgency; E78.5 Hyperlipidemia, unspecified; E11.65 Type 2 diabetes mellitus with hyperglycemia; E55.9 Vitamin D deficiency, unspecified; N18.2 Chronic kidney disease, stage 2 (mild); I25.10 Atherosclerotic heart disease of native coronary artery without angina pectoris; Z83.3 Family history of diabetes mellitus; Z82.49 Family history of ischemic heart disease and other diseases of the circulatory system; Z79.899 Other long term (current) drug therapy; Z68.28 Body mass index [BMI] 28.0-28.9, adult
CPT/HCPCS: 36415; 70450; 71045; 76775; 78452; 80048; 80053; 80061; 81001; 81025; 82306; 82570; 82728; 82962; 83036; 83540; 83550; 83605; 83735; 83880; 83930; 83970; 84100; 84156; 84300; 84443; 84484; 84550; 84702; 85014; 85018; 85025; 85610; 85730; 86850; 86900; 86901; 87040; 87070; 87205; 87426; 87804; 92941; 93005; 93017; 93306; 93458; 93571; 94640; 96374; 96375; C1887; G0378; J1815; J2250; J2405; Q9967

== ENCOUNTER 2025-07-30 09:52 | Outpatient (CLI) | payer MEDICAID ==
[~2025-07-30] VITALS: Ht 165.1 cm; Wt 72.6 kg
[~2025-07-30 09:52] MED LIST changes: +ALCOPAD58 XX; +ASPI-325 PO; +ATOR20TA50 PO; -AUG875T PO; -BACDST PO; +CARV-214 PO; -CEPH500C PO; -CLIN1CAP70 PO; +CLOP75TA70 PO; -CLOT1CRE56 TOP; -DAKI0.12 EX; -DOCU-94 PO; +EMPA1TAB PO; +FER325T PO; -GAUZ4PAD82 XX; -GAUZMIS XX; +GLUC1TES63 VI; -HYDR-4902 PO; -IBUP-1455 PO; +INSLANTI SC; +INSU-1640 XX; +INSU100I49 SC; -LACTCAP35 OR; -LISI20TA56 PO; -METF-370 PO
[2025-07-30] MEDS ORDERED: ADENOSINE 90 MG/30 ML INJ IV ONE (12:17)
[2025-07-30] MEDS ORDERED: ADENOSINE 61 MG in GIVE UN-DILUTED 0 ML IV ONE (13:00)
== END 2025-07-30 17:00 | disposition home or self-care (01) ==
LOC: Rad HDHVI 09:52
PROVIDERS: ATTEND Internal Medicine Cardiovascular Disease
DX: I25.10 Atherosclerotic heart disease of native coronary artery without angina pectoris (principal); I25.2 Old myocardial infarction; E78.00 Pure hypercholesterolemia, unspecified; E11.42 Type 2 diabetes mellitus with diabetic polyneuropathy; I50.9 Heart failure, unspecified; I11.0 Hypertensive heart disease with heart failure
CPT/HCPCS: 78452; A9500; J0153; 93017